=== PATIENT | male | born 1955 | race Caucasian/White ===

== ENCOUNTER → 2017-01-27 | Outpatient (CLI) | payer OTHER ==
[2017-01-27 11:18] LABS: CH 30.2; CHCM 32.9; HDW 2.86; HGB 14.8 gm/dL (13.0-17.5); MCH 29.7 pg (25.0-35.0); MCHC 32.2 g/dL (31.0-37.0); MCV 92.2 fL (80.0-100.0); RBC 4.99 m/uL (4.30-5.90); RDW 15.2 % (11.5-15.5); WBC 4.9 k/uL (3.8-10.6)
[2017-01-27 11:23] LABS: ALT 33 U/L (21-72); AST 26 U/L (17-59); Alkaline Phosphatase 110 U/L (38-126); Anion Gap 9 mmol/L; Blood Urea Nitrogen 18 mg/dL (9-20); Calcium 9.5 mg/dL (8.4-10.2); Carbon Dioxide 28 mmol/L (22-30); Chloride 104 mmol/L (98-107); Cholesterol 188 mg/dL (<200); Glucose 103 mg/dL (74-99); HDL Cholesterol 38 mg/dL (40-60); Magnesium 1.8 mg/dL (1.6-2.3); Non-African American GFR(MDRD) >60 (>60 ml/min/1.73 sqM); Potassium 5.2 mmol/L (3.5-5.1); Sodium 141 mmol/L (137-145); Total Bilirubin 0.6 mg/dL (0.2-1.3); Total Protein 9.2 g/dL (6.3-8.2)
== END | disposition home or self-care (01) ==
LOC: LABWHC1 10:46
PROVIDERS: ATTEND Nurse Practitioner Adult Health
DX: E78.2 Mixed hyperlipidemia (principal); I49.3 Ventricular premature depolarization; I42.9 Cardiomyopathy, unspecified
CPT/HCPCS: 36415; 80053; 80061; 83735; 83880; 85027

== ENCOUNTER → 2017-03-04 | Outpatient (CLI) | payer OTHER ==
--- NOTE | 2017-03-05 07:44 | US ---
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 Lesion on right kidney removed 3 months ago, h/o stones and cyst EXAM MEASUREMENTS: Right Kidney: 10.8 x 6.1 x 5.6 cm Left Kidney: 11.5 x 5.0 x 8.1 cm Right Kidney: 3.3cm simple cyst seen. Left Kidney: 3.9cm hyperechoic lesion seen Bladder: wnl Bilateral Jets seen: Yes There is no evidence for hydronephrosis at this point in time. No nephrolithiasis is seen. The urina ry bladder is anechoic. Bilateral ureteral jets are seen. IMPRESSION: 1. The known solid posterior mid pole right renal mass previously seen on MR has been removed in the interim. 2. 3.3 cm simple right renal cyst. 3. 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
== END | disposition home or self-care (01) ==
LOC: RADUSWWP 15:51
PROVIDERS: ATTEND Urology
DX: C64.1 Malignant neoplasm of right kidney, except renal pelvis (principal); D17.71 Benign lipomatous neoplasm of kidney; N28.1 Cyst of kidney, acquired
CPT/HCPCS: 76770

== ENCOUNTER → 2017-06-25 | Outpatient (CLI) | payer OTHER ==
[2017-06-25 11:54] LABS: Anion Gap 8 mmol/L; Blood Urea Nitrogen 19 mg/dL (9-20); Calcium 9.4 mg/dL (8.4-10.2); Carbon Dioxide 31 mmol/L (22-30); Chloride 103 mmol/L (98-107); Glucose 102 mg/dL (74-99); Potassium 4.9 mmol/L (3.5-5.1); Sodium 142 mmol/L (137-145)
== END | disposition home or self-care (01) ==
LOC: LABWHC1 10:51
PROVIDERS: ATTEND Internal Medicine Cardiovascular Disease
DX: I10 Essential (primary) hypertension (principal)
CPT/HCPCS: 36415; 80048

== ENCOUNTER → 2017-10-08 | Outpatient (CLI) | payer OTHER ==
--- NOTE | 2017-10-08 16:50 | US ---
EXAMINATION TYPE: US kidneys/renal and bladder DATE OF EXAM: 10/08/2017 COMPARISON: CLINICAL HISTORY: N28.1 Renal Cyst. Hx of renal cyst. Hx of renal cancer with right renal tumor francisco javier chastity per patient. EXAM MEASUREMENTS: Right Kidney: 10.6 x 5.7 x 6.3 cm Left Kidney: 11.8 x 6.1 x 6.8 cm Right Kidney: Medial cystic appearing lesion seen in upper pole = 3.2 x 3.5 x 2.9 cm. Cystic appeari ng lesion seen with septation vs cluster of cyst seen in upper/mid pole = 1.7 x 1.6 x 1.6 cm. Lower pole echogenic lesion with shadow = 1.6 x 1.2 cm Left Kidney: Echogenic anterior vascular lesion seen in lower pole = 4.3 x 4.2 x 3.1 cm. Lower pole c ystic appearing lesion . = 1.3 x 1.5 x 1.3 cm. Upper pole cystic appearing lesion - 1.3 x 1.3 x 1.1 cm. Bladder: Distended, wnl Bilateral Jets seen IMPRESSION: There are renal cortical cysts. There is a 4 cm solid mass on the lateral left kidney. Is unchanged c ompared to CT scan of 04/11/2016 and consistent with a lipoma.there is a shadowing 1.6 cm density on the right kidney that is consistent with calcification that is not changed compared to old CT scan. N o suspicious solid renal mass identified. No renal obstruction. There are bilateral ureteral jets.
== END | disposition home or self-care (01) ==
LOC: RADUSMAIN 15:42
PROVIDERS: ATTEND Urology
DX: N28.1 Cyst of kidney, acquired (principal); N28.89 Other specified disorders of kidney and ureter
CPT/HCPCS: 76770

== ENCOUNTER → 2018-04-21 | Outpatient (CLI) | payer OTHER ==
--- NOTE | 2018-04-21 12:32 | US ---
EXAMINATION TYPE: US kidneys/renal and bladder DATE OF EXAM: 04/21/2018 COMPARISON: US 10/08/2017 CLINICAL HISTORY: N28.1 Renal Cyst. EXAM MEASUREMENTS: Right Kidney: 11.4 x 6.3 x 6.6 cm Left Kidney: 11.0 x 6.7 x 6.2 cm Right Kidney: No hydronephrosis. Multiple cystic areas visualized, largest upper pole measuring 3.4 x 3.4 x 3.7 cm Left Kidney: No hydronephrosis. Probable parapelvic cysts visualized. Hyperechoic area visualized med ial measuring 5.0 x 3.4 x 5.4 cm. Cystic area visualized lower pole 2.4 x 1.8 x 2.8 cm Bladder: wnl Bilateral Jets seen: Yes IMPRESSION: Multiple simple cysts noted.
== END | disposition home or self-care (01) ==
LOC: RADUSWWP 10:47
PROVIDERS: ATTEND Urology
DX: N28.1 Cyst of kidney, acquired (principal)
CPT/HCPCS: 76770

== ENCOUNTER → 2018-11-02 | Outpatient (CLI) | payer OTHER ==
[2018-11-02 16:07] LABS: HCT 39.5 % (39.0-53.0); HGB 12.4 gm/dL (13.0-17.5); MCH 28.8 pg (25.0-35.0); MCHC 31.4 g/dL (31.0-37.0); MCV 91.6 fL (80.0-100.0); Platelet Count 230 k/uL (150-450); RBC 4.31 m/uL (4.30-5.90); RDW 14.6 % (11.5-15.5); WBC 4.7 k/uL (3.8-10.6)
--- NOTE | 2018-11-02 16:26 | XR ---
EXAMINATION TYPE: XR chest 2V DATE OF EXAM: 11/02/2018 COMPARISON: NONE TECHNIQUE: PA and lateral views submitted. HISTORY: Postsurgical change FINDINGS: The lungs are clear and there is no pneumothorax, pleural effusion, or focal pneumonia. Prominence of the right suprahilar region. Heart is mildly prominent. No overt failure. Arthropathy of the shoul ders. Hypertrophic and degenerative change of the spine. IMPRESSION: 1. Right upper mediastinal soft tissue fullness could be related to vascular prominence rather than a denopathy. Recommend CT of the chest. 2. No acute infiltrate.
[2018-11-03 01:33] LABS: Albumin 3.5 g/dL (3.80-4.90); Albumin/Globulin Ratio 0.69 (1.60-3.17); Anion Gap 6.6 mmol/L (4.00-12.00); Calcium 8.6 mg/dL (8.7-10.3); Carbon Dioxide 25.4 mmol/L (21.6-31.8); Globulin 5.1 g/dL (1.6-3.3); Potassium 3.7 mmol/L (3.5-5.5); Total Bilirubin 0.3 mg/dL (0.3-1.2); Total Protein 8.6 g/dL (6.2-8.2)
== END | disposition home or self-care (01) ==
LOC: LABWHC1 15:16
PROVIDERS: ATTEND Urology
DX: M79.89 Other specified soft tissue disorders (principal); C64.1 Malignant neoplasm of right kidney, except renal pelvis
CPT/HCPCS: 36415; 71046; 80053; 85027

== ENCOUNTER → 2018-11-17 | Outpatient (CLI) | payer OTHER ==
--- NOTE | 2018-11-18 09:17 | US ---
EXAMINATION TYPE: US kidneys/renal and bladder DATE OF EXAM: 11/17/2018 COMPARISON: US 2018 CLINICAL HISTORY: C64.1 Renal ca. Malignant neoplasm of kidney. Cancerous mass removed from right kid tarun 1.5 years ago. Hx kidney stones and cysts. EXAM MEASUREMENTS: Right Kidney: 10.8 x 6.3 x 6.0 cm Left Kidney: 13.2 x 5.8 x 6.4 cm Post Void Residual Volume: Not performed. Right Kidney: Hypoechoic area seen laterally measurin.1 x 2.0 x 1.7 cm. This appears new from the prior. Additional imaging is recommended. Largest anechoic area seen upper/medially measurin.3 x 4.3 x 3.4 cm. This appears as a simple cys t and previously measured up to 3.4 cm on the exam of 04/21/2018. Left Kidney: Hypoechoic-anechoic area seen lower measurin.0 x 2.9 x 2.0 cm. Hyperechoic myelolipo ma seen medially (measured on previous studies) measurin.8 x 4.9 x 3.[address] of 6 this measured up to 1.5 cm Bladder: Appears anechoic Bilateral Jets seen: Yes IMPRESSION: 1. Hypoechoic 2.1 cm right renal lesion laterally with emanating from the mid pole that appears new f rom the prior exam. Enhanced MRI or CT is recommended for further evaluation of this lesion. 2. Interval enlargement of the left myelolipoma now measuring up to 5.8 cm. At this size there is ris k of intralesional hemorrhage occurring. 3. Multiple simple appearing benign renal cysts.
== END | disposition home or self-care (01) ==
LOC: RADUSWWP 16:19
PROVIDERS: ATTEND Urology
DX: N28.9 Disorder of kidney and ureter, unspecified (principal); D17.9 Benign lipomatous neoplasm, unspecified; N28.1 Cyst of kidney, acquired; C64.1 Malignant neoplasm of right kidney, except renal pelvis
CPT/HCPCS: 76770

== ENCOUNTER → 2018-11-19 | Outpatient (CLI) | payer OTHER ==
--- NOTE | 2018-11-20 14:37 | CT ---
EXAMINATION TYPE: CT chest wo con DATE OF EXAM: 11/19/2018 COMPARISON: None HISTORY: Cough x2 weeks. CT DLP: 590.6 mGycm. Automated Exposure Control for Dose Reduction was Utilized. TECHNIQUE: CT scan of the thorax is performed without IV contrast. FINDINGS: The lungs are clear of infiltrate. There is no evidence of a pulmonary mass. There is no pleural effu emma. There is densely calcified 2.5 cm right paratracheal lymph node. There are no hilar masses. The re is no pericardial effusion. There is 5 mm calculus upper pole left kidney. There is hypertrophic s purring in the thoracic spine. IMPRESSION: Old granulomatous disease. Otherwise negative exam.
== END | disposition home or self-care (01) ==
LOC: RADCTMAIN 16:47
PROVIDERS: ATTEND Family Medicine
DX: R05 Cough (principal)
CPT/HCPCS: 71250

== ENCOUNTER → 2019-01-27 | Outpatient (CLI) | payer OTHER ==
[2019-01-27 16:18] LABS: African American GFR (CKD) >90 (>60 ml/min/1.73 sqM); Blood Urea Nitrogen 18 mg/dL (9-20); Non-African American GFR(CKD) 78 (>60 ml/min/1.73 sqM)
--- NOTE | 2019-01-28 09:20 | CT ---
EXAMINATION TYPE: CT abdomen pelvis wo/w con DATE OF EXAM: 01/27/2019 COMPARISON: 05/24/2016 MRI of the kidney and CT of the abdomen and pelvis dated 04/11/2016 HISTORY: Malignant neoplasm of right kidney. CT DLP: 2901.3 mGycm Automated exposure control for dose reduction was used. TECHNIQUE: Helical acquisition of images was performed from the lung bases through the pelvis. CONTRAST: Performed with Oral Contrast and without and with IV Contrast, patient injected with 100ml mL of Isov ue 300. FINDINGS: LUNG BASES: No significant abnormality is appreciated. LIVER/GB: No significant abnormality is appreciated. Gallbladder surgically absent. PANCREAS: No significant abnormality is seen. SPLEEN: No significant abnormality is seen. ADRENALS: No significant abnormality is seen. KIDNEYS: Interval removal/ablation of solid left midpole kidney mass seen on MRI of the abdomen dated 05/24/2016. A few scattered punctate calcifications are seen within the region of the surgical site. There are a few multilobulated exophytic structures seen near the surgical site with the largest are a measuring 1.7 x 3.3 x 3.6 cm in AP by transverse by craniocaudad dimension. On the postcontrast gaurav ms, there is mild enhancement within this area. These findings are best seen on axial image 42. There is also increasing size of right upper pole kidney cyst with peripheral calcification and inter nal septation which now measures approximately 4.9 cm. Redemonstration of fat-containing exophytic ki dney lesion in the mid pole on the left measuring 4.5 cm with previous measurement of 4.1 cm. Inferio r to this area there is a small area of hyperattenuation measuring 1.6 cm with adjacent cyst measurin g 2.8 cm. Multiple tiny nonobstructive calculi are seen in the bilateral kidneys with the largest seen in the u pper pole on the right measuring 2 0.6 cm. No evidence of hydronephrosis. Bilateral renal veins are p atent. FREE AIR: No free air is visualized. RETROPERITONEAL ADENOPATHY: None visualized REPRODUCTIVE ORGANS: No significant abnormality is seen URINARY BLADDER: No significant abnormality is seen. PELVIC ADENOPATHY: None visualized. OSSEOUS STRUCTURES: Development of new superior endplate lytic lesion measuring up to 1.6 cm in L2 a nd new when compared to 2016. No evidence of new sclerotic lesion. BOWEL: Diverticulosis of the descending and sigmoid colon. No bowel obstruction. No ascites. No free intraperitoneal air. IMPRESSION: RESOLUTION OF PREVIOUSLY SEEN EXOPHYTIC RIGHT RENAL MASS WITH SURGICAL SITES SEEN IN THE MIDPOLE OF T HE RIGHT KIDNEY. THERE ARE A FEW EXOPHYTIC ENHANCING STRUCTURES WITHIN THE SURGICAL SITE WHICH MAY RE LATED TO GRANULATION TISSUE FROM POST PROCEDURE, BUT GIVEN THE ENHANCEMENT, FURTHER EVALUATION WITH M RI RENAL PROTOCOL IS RECOMMENDED. MULTIPLE COMPLEX CYSTS SEEN IN THE BILATERAL KIDNEYS WITH ENLARGEMENT AND INTERNAL SEPTATION AND HEMO RRHAGE IN THE RIGHT UPPER POLE AND LEFT LOWER POLE. GIVEN THE HISTORY OF RENAL CANCER, THESE STRUCTUR ES SHOULD ALSO BE EVALUATED ON MRI RENAL PROTOCOL. SLIGHT ENLARGEMENT OF EXOPHYTIC LEFT KIDNEY ANGIOMYOLIPOMA. NONOBSTRUCTIVE BILATERAL NEPHROLITHIASIS. NEW L2 SUPERIOR ENDPLATE LYTIC LESION FAVOR TO BE DEGENERATIVE, CORRELATION WITH BONE SCAN MAY BE HEL PFUL.
== END | disposition home or self-care (01) ==
LOC: RADCTMAIN 15:42
PROVIDERS: ATTEND Urology
DX: N28.1 Cyst of kidney, acquired (principal); N20.0 Calculus of kidney; C64.1 Malignant neoplasm of right kidney, except renal pelvis
CPT/HCPCS: 82565; 84520; 74178; 36415; Q9967

== ENCOUNTER → 2019-03-04 | Outpatient (CLI) | payer OTHER ==
--- NOTE | 2019-03-08 12:59 | MR ---
MRI kidneys with and without contrast HISTORY: Malignant neoplasm of right kidney Multiplanar multisequence and postcontrast images through the kidneys following 11.5 cc Gadavist Correlation to CT scan 01/27/2019, prior renal MRI 05/24/2016 The angiomyolipoma within the left kidney is again noted and measures approximately 4.6 cm on postcon trast images as compared to previous exam renal MRI when it measured approximately 4.[address] shows a measurement of approximately 4.9 cm. At the lower pole the left kidney there has been interval growt h in the lesion which shows possible 2 adjacent lesions with septation-like focus coursing transverse ly, larger of the 2 foci shows intermediate signal intensity on T1 precontrast and similar to fat sig nal on postcontrast images and measures 2.4 cm. Smaller anterior focus is T1 bright precontrast and m ildly increased on T2-weighted images. Immediately adjacent laterally and cephalad there is a focus o f intermediate signal on postcontrast images measuring 16 mm which is increased signal on precontrast T1 and extends towards the angiomyolipoma. Parapelvic cysts are present, multiple cortical cysts are noted. The right kidney shows post op changes consistent with patient's prior partial nephrectomy. Multiple T2 bright lesions are present compatible with parapelvic cysts and cortical cysts. No significant abn ormal enhancement is present, the area described as high attenuation on previous exam on the CT is th ought likely to be related to the surgery, it shows high attenuation precontrast as well and may be r elated to suture material. Small exophytic anterior calcified focus at the anterior margin of the rig ht kidney subcentimeter size is not well appreciated on MRI. There is no retroperitoneal adenopathy. Right adrenal lesion shows signal drop and may represent elías irene on out of phase imaging. Pancreas and spleen as visualized are normal. Signal drop on out of phas e imaging within the liver suggests hepatic steatosis. IMPRESSION: Postop changes. Findings in the lower pole of left kidney may be related to proteinaceous cyst, additional follow-up could be performed to assess for stability. Additional findings above.
== END | disposition home or self-care (01) ==
LOC: RADMRIMAIN 14:40
PROVIDERS: ATTEND Urology
DX: N28.89 Other specified disorders of kidney and ureter (principal); N28.1 Cyst of kidney, acquired; Z98.890 Other specified postprocedural states; Z90.5 Acquired absence of kidney
CPT/HCPCS: 74183; A9585

== ENCOUNTER 2019-10-15 22:10 | Inpatient (IN) | payer OTHER, MEDICARE ==
--- NOTE | 2019-10-16 00:03 | CT ---
EXAMINATION TYPE: CT lumbar spine wo con DATE OF EXAM: 10/15/2019 COMPARISON: CT abdomen 01/27/2019 HISTORY: lower back pain CT DLP: 1596.6 mGycm Automated exposure control for dose reduction was used. Multiple axial sections were obtained from the level of T11 to the S3 vertebra without contrast. There are multiple areas of osteolytic change in the lumbar and sacral vertebral bodies. There is exp ansile lytic lesion in the body of the sacrum on the left side that measures 3.5 x 6.5 cm. There are multiple osteolytic lesions in the visualized bony pelvis. There is no lumbar compression fracture. T here is multilevel lumbar degenerative disc space narrowing. There is some pleural thickening and ate lectasis and infiltrate right posterior lung base. There is 1 cm calculus medial left kidney. There i s no hydronephrosis. Kidneys are not entirely included on the exam. There are smaller calculi in the interpolar left kidney. IMPRESSION: Extensive osteolytic changes in the lumbar spine and visualized pelvis consistent with widespread met astatic disease that show significant progression compared to old CT scan. No significant compression fracture seen.
[2019-10-16] MEDS ORDERED: MORPHINE SULFATE 4 MG/ML SYRINGE IV STA (00:31)
[2019-10-16 01:05] LABS: Appearance,Urine Cloudy (Clear); Bacteria,Urine Rare /hpf; Bilirubin,Urine Negative (Negative); Blood,Urine Negative (Negative); Color,Urine Yellow; Glucose,Urine (UA) Negative (Negative); Hyaline Casts,Urine 1 /lpf (0-2); Ketones,Urine Negative (Negative); Leukocyte Esterase,Urine Negative (Negative); Mucus,Urine Rare /hpf; Nitrite,Urine Negative (Negative); PH, Urine 5.5 (5.0-8.0); Protein,Urine 2+ (Negative); RBC,Urine 2 /hpf (0-5); Specific Gravity,Urine 1.017 (1.001-1.035); Squamous Epithelial Cell,Urine <1 /hpf (0-4); Urobilinogen,Urine <2.0 mg/dL (<2.0); WBC,Urine 2 /hpf (0-5)
[2019-10-16 01:23] LABS: Glucose,Whole Blood 119 mg/dL (75-99)
[2019-10-16 01:25] LABS: Anisocytosis Slight; Basophils % (A) 0 %; Eosinophils # (A) 0.1 k/uL (0-0.7); Eosinophils % (A) 1 %; HCT 24.9 % (39.0-53.0); HGB 8.1 gm/dL (13.0-17.5); Hypochromasia Slight; Lymphocytes # (A) 0.4 k/uL (1.0-4.8); Lymphocytes % (A) 4 %; MCH 31.9 pg (25.0-35.0); MCHC 32.5 g/dL (31.0-37.0); MCV 98.1 fL (80.0-100.0); Macrocytosis Slight; Mean Platelet Volume 8.3; Monocytes # (A) 0.6 k/uL (0-1.0); Monocytes % (A) 6 %; Neutrophils % (A) 88 %; Platelet Count 137 k/uL (150-450); RBC 2.54 m/uL (4.30-5.90); RDW 17.2 % (11.5-15.5); WBC 10.3 k/uL (3.8-10.6)
[2019-10-16 01:32] LABS: Albumin 3.3 g/dL (3.5-5.0); Calcium 9.9 mg/dL (8.4-10.2)
[2019-10-16 01:42] LABS: Potassium 4.2 mmol/L (3.5-5.1)
[2019-10-16 01:43] LABS: Total Protein 13.5 g/dL (6.3-8.2)
[2019-10-16] MEDS ORDERED: SODIUM CHLORIDE 0.9% 1,000 ML IV ONE (01:55)
[2019-10-16] MEDS ORDERED: ASPIRIN 325 MG TAB PO STA (02:08)
[2019-10-16] MEDS ORDERED: NALOXONE 0.4 MG/ML 1 ML VIAL IV PRN (02:17)
--- NOTE | 2019-10-16 02:21 | ED ---
General Adult HPI - General Source: patient, RN notes reviewed, old records reviewed Mode of arrival: wheelchair Limitations: no limitations <Lionel Torres - Last Filed: 10/16/19 02:21> <Chidi Walsh - Last Filed: 10/25/19 07:18> - General Chief complaint: Back Pain/Injury Stated complaint: Back pain Time Seen by Provider: 10/15/19 22:51 - History of Present Illness Initial comments: 64-year-old male patient past history significant for renal cell carcinoma which was treated surgically approximately 2 years ago presents to ED for evaluation of back pain. Patient reports that he has a history of back pain and for the last month and has been worse. Describes it as mostly left paralumbar involving his gluteus region. Does report that radiates down his left leg. Patient reports that a few times throughout the night he has woken up and had a go to the bathroom very badly. Unable to get to the bathroom in time and partial urinated on himself. Denies any issues during the day. Denies any lower ext remity weakness, paresthesias or saddle anesthesia. Denies any recent falls or trauma. Patient did have a reported virtual part of his primary care provider for the pain is experiencing at that time he was prescribed tramadol and gabapentin which are supposedly helping his discomfort Denies any chest pain or shortness of breath. Systemic: Pt denies fatigue, fever/chills, rash. Pt denies weakness, night sweats, weight loss. Neuro: Pt denies headache, visual disturbances, syncope or pre-syncope. HEENT: Pt denies ocular discharge or irritation, otalgia, rhinorrhea, pharyngitis or notable lymphadenopathy. Cardiopulmonary: Pt denies chest pain, SOB, heart palpitations, dyspnea on exertion. Abdominal/GI: Pt denies abdominal pain, n/v/d. : Pt denies dysuria, burning w/ urination, frequency/urgency. Denies new onset urinary or bowel incontinence. MSK: Pt denies loss of strength or function in extremities. Neuro: Pt denies new onset weakness, paresthesias. (Lionel Torres) - Related Data Home Medications Medication Instructions Recorded Confirmed Albuterol Nebulized [Ventolin 2.5 mg INHALATION RT-TID PRN 10/16/19 10/16/19 Nebulized] Fluticasone Nasal [place] [Flonase 1 spray EA NOSTRIL HS 10/16/19 10/16/19 Nasal [place]] Furosemide [Lasix] 20 mg PO DAILY 10/16/19 10/16/19 Gabapentin [Neurontin] 400 mg PO TID 10/16/19 10/16/19 Pravastatin Sodium [Pravachol] 20 mg PO DAILY 10/16/19 10/16/19 traMADol HCL 50 mg PO BID 10/16/19 10/16/19 Previous Rx's Medication Instructions Recorded amLODIPine BESYLATE/BENAZEPRIL 1 cap PO DAILY #90 cap 10/18/19 [Lotrel 10-20 MG] Dexamethasone 40 mg PO DAILY #60 tablet 10/19/19 Metoprolol Succinate (ER) [Toprol 25 mg PO DAILY #90 tab.er.24h 10/19/19 XL] Pantoprazole [Protonix] 40 mg PO BID #60 tablet. 10/19/19 Cephalexin [Keflex] 500 mg PO Q12HR #14 cap 10/21/19 Sennosides [Senokot] 8.6 mg PO BID #30 tab 10/21/19 Allergies Allergy/AdvReac Type Severity Reaction Status Date / Time hydrocodone [From Tensed] Allergy Unknown Verified 10/16/19 15:18 Review of Systems ROS Other: All systems not noted in ROS Statement are negative. <Lionel Torres - Last Filed: 10/16/19 02:21> ROS Other: All systems not noted in ROS Statement are negative. <Chidi Walsh - Last Filed: 10/25/19 07:18> ROS Statement: Those systems with pertinent positive or pertinent negative responses have been documented in the HPI. Past Medical History Past Medical History: Hypertension Additional Past Medical History / Comment(s): back pain History of Any Multi-Drug Resistant Organisms: None Reported Past Surgical History: Joint Replacement, Orthopedic Surgery Additional Past Surgical History / Comment(s): carpel tunnel, cataract Past Psychological History: No Psychological Hx Reported Smoking Status: Never smoker Past Alcohol Use History: None Reported Past Drug Use History: None Reported <Lionel Torres - Last Filed: 10/16/19 02:21> General Exam Limitations: no limitations <Lionel Torres - Last Filed: 10/16/19 02:21> - General Exam Comments Initial Comments: Constitutional: NAD, AOX3, Pt has pleasant affect. HEENT: NC/AT, trachea midline, neck supple, no lymphadenopathy. Posterior pharynx non erythematous, without exudates. External ears appear normal, without discharge. Mucous membranes moist. Eyes PERRLA, EOM intact. There is no scleral icterus. No pallor noted. Cardiopulmonary: RRR, no murmurs, rubs or gallops, no JVD noted. Lungs CTAB in anterior and posterior usllivan. No peripheral edema. Abdominal exam: Abdomen soft and non-distended. Abdomen non-tender to palpation in all 4 quadrants. Bowel sounds active in LLQ. No hepatosplenomegaly. No ecchymosis Neuro: CN II-XII grossly intact. No nuchal rigidity. No raccon eyes, no ruiz sign, no hemotympanum. No cervical spinal tenderness. MSK: Mild mild tenderness in left paralumbar region. Straight leg raise is positive right sided. 5 out of 5 strength psoas quadriceps muscles. Heel to toe walking is intact. No external skin changes noted. Rectal tone is intact. Sensation intact. No posterior calf tenderness bilaterally, homans sign negative bilaterally. Posterior tibialis and radial pulse +2 bilaterally. Sensation intact in upper and lower extremities. Full active ROM in upper and lower extremities, 5/5 stregnth. (Lionel Torres) Course Vital Signs 10/15/19 10/16/19 10/16/19 22:34 01:34 02:36 Temperature 98.8 F 98.8 F 99.7 F H Pulse Rate 95 89 Pulse Rate [ 100 Right] Respiratory 18 18 18 Rate Blood Pressure 129/64 120/71 Blood Pressure 134/74 [Right Arm] O2 Sat by Pulse 98 95 99 Oximetry 10/16/19 02:50 Temperature 98.6 F Pulse Rate 92 Pulse Rate [ Right] Respiratory 16 Rate Blood Pressure 130/79 Blood Pressure [Right Arm] O2 Sat by Pulse 98 Oximetry Medical Decision Making - Lab Data Result diagrams: 10/16/19 01:09 10/16/19 01:09 - EKG Data -: EKG Interpreted by Me (and Dr. Tellez ) <Lionel Torres - Last Filed: 10/16/19 02:21> - Lab Data Result diagrams: 10/21/19 05:54 10/21/19 05:54 <Chidi Walsh - Last Filed: 10/25/19 07:18> - Medical Decision Making 64-year-old male patient past history significant for renal cell carcinoma which was treated surgically approximately 2 years ago presents to ED for evaluation of back pain. Patient reports that he has a history of back pain and for the last month and has been worse. Describes it as mostly left paralumbar involving his gluteus region. Does report that radiates down his left leg. Patient reports that a few times throughout the night he has woken up and had a go to the bathroom very badly. Unable to get to the bathroom in time and partial urinated on himself. Denies any issues during the day. Denies any lower extremity weakness, paresthesias or saddle anesthesia. Denies any recent falls or trauma. Patient did have a reported virtual part of his primary care provider for the pain is experiencing at that time he was prescribed tramadol and gabapentin which are supposedly helping his discomfort Denies any chest pain or shortness of breath. Patient also and are stable, afebrile. Physical exam displayed: Mild mild tenderness in left paralumbar region. Straight leg raise i s positive right sided. 5 out of 5 strength psoas quadriceps muscles. Heel to toe walking is intact. No external skin changes noted. Rectal tone is intact. Sensation intact. Patient did urinate in the emergency department without difficulty. Post void residual was 73 mL approximately 1 hr later. Patient also had a bowel movement without difficulty. CT lumbar spine without contrast was performed displayed extensive osteolytic changes in the lumbar spine and visualized pelvis consistent with widespread metastatic disease that showed significant progression compared old CT scan. No significant compression fracture seen. Laboratory investigations were obtained. This did display acute kidney injury, hemoglobin 8.1 which patient reports is around his baseline. Denies any rectal bleeding. Patient reports that he believes the tramadol is making him sweat and EKG and troponin were performed. The EKG did not display any grossly ischemic changes. Troponin was mildly elevated contacts acute kidney injury. Patient was administered an aspirin and troponins will be trended. Patient is not experiencing any chest pain. Patient will be admitted for oncology evaluation, troponin trend, acute kidney injury. Case discussed with Dr. Tellez. (Lionel Torres) I saw this patient in conjunction with the physician assistant food service manager. I performed independent history and physical exam. Agree with case management. (Chidi Walsh) - Lab Data Lab Results 10/16/19 10/16/19 10/16/19 Range/Units 00:49 01:09 01:09 WBC 10.3 (3.8-10.6) k/uL RBC 2.54 L (4.30-5.90) m/uL Hgb 8.1 L (13.0-17.5) gm/dL Hct 24.9 L (39.0-53.0) % MCV 98.1 (80.0-100.0) fL MCH 31.9 (25.0-35.0) pg MCHC 32.5 (31.0-37.0) g/dL RDW 17.2 H (11.5-15.5) % Plt Count 137 L (150-450) k/uL Neutrophils % 88 % Lymphocytes % 4 % Monocytes % 6 % Eosinophils % 1 % Basophils % 0 % Neutrophils # 9.0 H (1.3-7.7) k/uL Lymphocytes # 0.4 L (1.0-4.8) k/uL Monocytes # 0.6 (0-1.0) k/uL Eosinophils # 0.1 (0-0.7) k/uL Basophils # 0.0 (0-0.2) k/uL Hypochromasia Slight Anisocytosis Slight Macrocytosis Slight ESR (0-15) mm/hr PT (9.0-12.0) sec INR (<1.2) Sodium 132 L (137-145) mmol/L Potassium 4.2 (3.5-5.1) mmol/L Chloride 97 L (98-107) mmol/L Carbon Dioxide 28 (22-30) mmol/L Anion Gap 7 mmol/L BUN 36 H (9-20) mg/dL Creatinine 1.83 H (0.66-1.25) mg/dL Est GFR (CKD-EPI)AfAm 44 (>60 ml/min/1.73 sqM) Est GFR (CKD-EPI)NonAf 38 (>60 ml/min/1.73 sqM) Glucose 110 H (74-99) mg/dL POC Glucose (mg/dL) (75-99) mg/dL POC Glu Power Nut Runner Operator ID Calcium 9.9 (8.4-10.2) mg/dL Iron (65-175) ug/dL TIBC (228-460) ug/dL % Saturation (15.00-50.00) Ferritin (22.0-322.0) ng/mL Total Bilirubin 1.0 (0.2-1.3) mg/dL AST 98 H (17-59) U/L ALT 80 H (4-49) U/L Alkaline Phosphatase 113 (38-126) U/L Troponin I (0.000-0.034) ng/mL Total Protein 13.5 H (6.3-8.2) g/dL Total Protein (PEP) (6.2-8.2) g/dL Albumin 3.3 L (3.5-5.0) g/dL Albumin (PEP) (3.80-4.90) g/dL Saqrj-4-Qflhljszz (0.10-0.40) g/dL Tytrn-3-Yujtiatiu (0.60-1.00) g/dL Beta Globulins (0.60-1.30) g/dL Gamma Globulins (0.70-1.50) g/dL PEP Interpretation PSA Screen (0.0-4.0) ng/mL Vitamin B12 (200.0-944.0) pg/mL Methylmalonic Acid (<0.40) umol/L RBC Folate (280 - 791) ng/mL Urine Color Yellow Urine Appearance Cloudy (Clear) Urine pH 5.5 (5.0-8.0) Ur Specific [place] 1.017 (1.001-1.035) Urine Protein 2+ H (Negative) Urine Glucose (UA) Negative (Negative) Urine Ketones Negative (Negative) Urine Blood Negative (Negative) Urine Nitrite Negative (Negative) Urine Bilirubin Negative (Negative) Urine Urobilinogen <2.0 (<2.0) mg/dL Ur Leukocyte Esterase Negative (Negative) Urine RBC 2 (0-5) /hpf Urine WBC 2 (0-5) /hpf Ur Squamous Epith Cells <1 (0-4) /hpf Urine Bacteria Rare H (None) /hpf Hyaline Casts 1 (0-2) /lpf Urine Mucus Rare H (None) /hpf Serum THOMAS Interpret Free [place] LC, Quant (0.33-1.94) mg/dL Free [place] LC, Quant (0.57-2.63) mg/dL Coronavirus (PCR) (Not Detectd) 10/16/19 10/16/19 10/16/19 Range/Units 01:09 01:09 01:09 WBC (3.8-10.6) k/uL RBC (4.30-5.90) m/uL Hgb (13.0-17.5) gm/dL Hct (39.0-53.0) % MCV (80.0-100.0) fL MCH (25.0-35.0) pg MCHC (31.0-37.0) g/dL RDW (11.5-15.5) % Plt Count (150-450) k/uL Neutrophils % % Lymphocytes % % Monocytes % % Eosinophils % % Basophils % % Neutrophils # (1.3-7.7) k/uL Lymphocytes # (1.0-4.8) k/uL Monocytes # (0-1.0) k/uL Eosinophils # (0-0.7) k/uL Basophils # (0-0.2) k/uL Hypochromasia Anisocytosis Macrocytosis ESR >140 H (0-15) mm/hr PT (9.0-12.0) sec INR (<1.2) Sodium (137-145) mmol/L Potassium (3.5-5.1) mmol/L Chloride (98-107) mmol/L Carbon Dioxide (22-30) mmol/L Anion Gap mmol/L BUN (9-20) mg/dL Creatinine (0.66-1.25) mg/dL Est GFR (CKD-EPI)AfAm (>60 ml/min/1.73 sqM) Est GFR (CKD-EPI)NonAf (>60 ml/min/1.73 sqM) Glucose (74-99) mg/dL POC Glucose (mg/dL) (75-99) mg/dL POC Glu Power Nut Runner Operator ID Calcium (8.4-10.2) mg/dL Iron 23 L (65-175) ug/dL TIBC 170 L (228-460) ug/dL % Saturation 13.53 L (15.00-50.00) Ferritin 1542.8 H (22.0-322.0) ng/mL Total Bilirubin (0.2-1.3) mg/dL AST (17-59) U/L ALT (4-49) U/L Alkaline Phosphatase (38-126) U/L Troponin I 0.074 H* (0.000-0.034) ng/mL Total Protein (6.3-8.2) g/dL Total Protein (PEP) (6.2-8.2) g/dL Albumin (3.5-5.0) g/dL Albumin (PEP) (3.80-4.90) g/dL Ksdgb-2-Xocpnpyyr (0.10-0.40) g/dL Crqni-9-Xtxcyiehb (0.60-1.00) g/dL Beta Globulins (0.60-1.30) g/dL Gamma Globulins (0.70-1.50) g/dL PEP Interpretation PSA Screen (0.0-4.0) ng/mL Vitamin B12 1219.0 H (200.0-944.0) pg/mL Methylmalonic Acid (<0.40) umol/L RBC Folate (280 - 791) ng/mL Urine Color Urine Appearance (Clear) Urine pH (5.0-8.0) Ur Specific [place] (1.001-1.035) Urine Protein (Negative) Urine Glucose (UA) (Negative) Urine Ketones (Negative) Urine Blood (Negative) Urine Nitrite (Negative) Urine Bilirubin (Negative) Urine Urobilinogen (<2.0) mg/dL Ur Leukocyte Esterase (Negative) Urine RBC (0-5) /hpf Urine WBC (0-5) /hpf Ur Squamous Epith Cells (0-4) /hpf Urine Bacteria (None) /hpf Hyaline Casts (0-2) /lpf Urine Mucus (None) /hpf Serum THOMAS Interpret Free [place] LC, Quant (0.33-1.94) mg/dL Free Lambda LC, Quant (0.57-2.63) mg/dL Coronavirus (PCR) (Not Detectd) 10/16/19 10/16/19 10/16/19 Range/Units 01:09 01:09 01:09 WBC (3.8-10.6) k/uL RBC (4.30-5.90) m/uL Hgb (13.0-17.5) gm/dL Hct (39.0-53.0) % MCV (80.0-100.0) fL MCH (25.0-35.0) pg MCHC (31.0-37.0) g/dL RDW (11.5-15.5) % Plt Count (150-450) k/uL Neutrophils % % Lymphocytes % % Monocytes % % Eosinophils % % Basophils % % Neutrophils # (1.3-7.7) k/uL Lymphocytes # (1.0-4.8) k/uL Monocytes # (0-1.0) k/uL Eosinophils # (0-0.7) k/uL Basophils # (0-0.2) k/uL Hypochromasia Anisocytosis Macrocytosis ESR (0-15) mm/hr PT (9.0-12.0) sec INR (<1.2) Sodium (137-145) mmol/L Potassium (3.5-5.1) mmol/L Chloride (98-107) mmol/L Carbon Dioxide (22-30) mmol/L Anion Gap mmol/L BUN (9-20) mg/dL Creatinine (0.66-1.25) mg/dL Est GFR (CKD-EPI)AfAm (>60 ml/min/1.73 sqM) Est GFR (CKD-EPI)NonAf (>60 ml/min/1.73 sqM) Glucose (74-99) mg/dL POC Glucose (mg/dL) (75-99) mg/dL POC Glu Power Nut Runner Operator ID Calcium (8.4-10.2) mg/dL Iron (65-175) ug/dL TIBC (228-460) ug/dL % Saturation (15.00-50.00) Ferritin (22.0-322.0) ng/mL Total Bilirubin (0.2-1.3) mg/dL AST (17-59) U/L ALT (4-49) U/L Alkaline Phosphatase (38-126) U/L Troponin I (0.000-0.034) ng/mL Total Protein (6.3-8.2) g/dL Total Protein (PEP) 12.4 H (6.2-8.2) g/dL Albumin (3.5-5.0) g/dL Albumin (PEP) 2.55 L (3.80-4.90) g/dL Bhxjt-5-Getczlnxl 0.41 H (0.10-0.40) g/dL Bqjes-2-Szmaypbts 0.98 (0.60-1.00) g/dL Beta Globulins 0.58 L (0.60-1.30) g/dL Gamma Globulins 7.87 H (0.70-1.50) g/dL PEP Interpretation PSA Screen 1.8 (0.0-4.0) ng/mL Vitamin B12 (200.0-944.0) pg/mL Methylmalonic Acid (<0.40) umol/L RBC Folate 913 H (280 - 791) ng/mL Urine Color Urine Appearance (Clear) Urine pH (5.0-8.0) Ur Specific [place] (1.001-1.035) Urine Protein (Negative) Urine Glucose (UA) (Negative) Urine Ketones (Negative) Urine Blood (Negative) Urine Nitrite (Negative) Urine Bilirubin (Negative) Urine Urobilinogen (<2.0) mg/dL Ur Leukocyte Esterase (Negative) Urine RBC (0-5) /hpf Urine WBC (0-5) /hpf Ur Squamous Epith Cells (0-4) /hpf Urine Bacteria (None) /hpf Hyaline Casts (0-2) /lpf Urine Mucus (None) /hpf Serum THOMAS Interpret Free [place] LC, Quant 471.00 H (0.33-1.94) mg/dL Free [place] LC, Quant 0.18 L (0.57-2.63) mg/dL Coronavirus (PCR) (Not Detectd) 10/16/19 10/16/19 10/16/19 Range/Units 01:21 01:33 06:41 WBC (3.8-10.6) k/uL RBC (4.30-5.90) m/uL Hgb (13.0-17.5) gm/dL Hct (39.0-53.0) % MCV (80.0-100.0) fL MCH (25.0-35.0) pg MCHC (31.0-37.0) g/dL RDW (11.5-15.5) % Plt Count (150-450) k/uL Neutrophils % % Lymphocytes % % Monocytes % % Eosinophils % % Basophils % % Neutrophils # (1.3-7.7) k/uL Lymphocytes # (1.0-4.8) k/uL Monocytes # (0-1.0) k/uL Eosinophils # (0-0.7) k/uL Basophils # (0-0.2) k/uL Hypochromasia Anisocytosis Macrocytosis ESR (0-15) mm/hr PT (9.0-12.0) sec INR (<1.2) Sodium (137-145) mmol/L Potassium (3.5-5.1) mmol/L Chloride (98-107) mmol/L Carbon Dioxide (22-30) mmol/L Anion Gap mmol/L BUN (9-20) mg/dL Creatinine (0.66-1.25) mg/dL Est GFR (CKD-EPI)AfAm (>60 ml/min/1.73 sqM) Est GFR (CKD-EPI)NonAf (>60 ml/min/1.73 sqM) Glucose (74-99) mg/dL POC Glucose (mg/dL) 119 H (75-99) mg/dL POC Glu Power Nut Runner Operator ID Anup Ball Calcium (8.4-10.2) mg/dL Iron (65-175) ug/dL TIBC (228-460) ug/dL % Saturation (15.00-50.00) Ferritin (22.0-322.0) ng/mL Total Bilirubin (0.2-1.3) mg/dL AST (17-59) U/L ALT (4-49) U/L Alkaline Phosphatase (38-126) U/L Troponin I 0.071 H* (0.000-0.034) ng/mL Total Protein (6.3-8.2) g/dL Total Protein (PEP) (6.2-8.2) g/dL Albumin (3.5-5.0) g/dL Albumin (PEP) (3.80-4.90) g/dL Oswyw-1-Crvihbjis (0.10-0.40) g/dL Hnmaz-2-Nlzmumxtj (0.60-1.00) g/dL Beta Globulins (0.60-1.30) g/dL Gamma Globulins (0.70-1.50) g/dL PEP Interpretation PSA Screen (0.0-4.0) ng/mL Vitamin B12 (200.0-944.0) pg/mL Methylmalonic Acid (<0.40) umol/L RBC Folate (280 - 791) ng/mL Urine Color Urine Appearance (Clear) Urine pH (5.0-8.0) Ur Specific [place] (1.001-1.035) Urine Protein (Negative) Urine Glucose (UA) (Negative) Urine Ketones (Negative) Urine Blood (Negative) Urine Nitrite (Negative) Urine Bilirubin (Negative) Urine Urobilinogen (<2.0) mg/dL Ur Leukocyte Esterase (Negative) Urine RBC (0-5) /hpf Urine WBC (0-5) /hpf Ur Squamous Epith Cells (0-4) /hpf Urine Bacteria (None) /hpf Hyaline Casts (0-2) /lpf Urine Mucus (None) /hpf Serum THOMAS Interpret Free [place] LC, Quant (0.33-1.94) mg/dL Free [place] LC, Quant (0.57-2.63) mg/dL Coronavirus (PCR) Not Detected (Not Detectd) 10/16/19 10/17/19 10/17/19 Range/Units 12:16 06:43 06:43 WBC 5.5 (3.8-10.6) k/uL RBC 2.36 L (4.30-5.90) m/uL Hgb 7.5 L (13.0-17.5) gm/dL Hct 23.7 L (39.0-53.0) % MCV 100.3 H (80.0-100.0) fL MCH 31.8 (25.0-35.0) pg MCHC 31.7 (31.0-37.0) g/dL RDW 17.2 H (11.5-15.5) % Plt Count 130 L (150-450) k/uL Neutrophils % 85 % Lymphocytes % 3 % Monocytes % 8 % Eosinophils % 1 % Basophils % 0 % Neutrophils # 4.7 (1.3-7.7) k/uL Lymphocytes # 0.2 L (1.0-4.8) k/uL Monocytes # 0.4 (0-1.0) k/uL Eosinophils # 0.0 (0-0.7) k/uL Basophils # 0.0 (0-0.2) k/uL Hypochromasia Moderate Anisocytosis Slight Macrocytosis Slight ESR (0-15) mm/hr PT (9.0-12.0) sec INR (<1.2) Sodium 136 L (137-145) mmol/L Potassium 3.9 (3.5-5.1) mmol/L Chloride 103 (98-107) mmol/L Carbon Dioxide 24 (22-30) mmol/L Anion Gap 9 mmol/L BUN 36 H (9-20) mg/dL Creatinine 1.96 H (0.66-1.25) mg/dL Est GFR (CKD-EPI)AfAm 40 (>60 ml/min/1.73 sqM) Est GFR (CKD-EPI)NonAf 35 (>60 ml/min/1.73 sqM) Glucose 103 H (74-99) mg/dL POC Glucose (mg/dL) (75-99) mg/dL POC Glu Power Nut Runner Operator ID Calcium 9.7 (8.4-10.2) mg/dL Iron (65-175) ug/dL TIBC (228-460) ug/dL % Saturation (15.00-50.00) Ferritin (22.0-322.0) ng/mL Total Bilirubin 1.0 (0.2-1.3) mg/dL AST 280 H (17-59) U/L ALT 176 H (4-49) U/L Alkaline Phosphatase 117 (38-126) U/L Troponin I 0.064 H* (0.000-0.034) ng/mL Total Protein 12.6 H (6.3-8.2) g/dL Total Protein (PEP) (6.2-8.2) g/dL Albumin 3.0 L (3.5-5.0) g/dL Albumin (PEP) (3.80-4.90) g/dL Ybnjy-9-Ryrqnfezz (0.10-0.40) g/dL Nqkls-8-Yvwzssmcc (0.60-1.00) g/dL Beta Globulins (0.60-1.30) g/dL Gamma Globulins (0.70-1.50) g/dL PEP Interpretation PSA Screen (0.0-4.0) ng/mL Vitamin B12 (200.0-944.0) pg/mL Methylmalonic Acid (<0.40) umol/L RBC Folate (280 - 791) ng/mL Urine Color Urine Appearance (Clear) Urine pH (5.0-8.0) Ur Specific [place] (1.001-1.035) Urine Protein (Negative) Urine Glucose (UA) (Negative) Urine Ketones (Negative) Urine Blood (Negative) Urine Nitrite (Negative) Urine Bilirubin (Negative) Urine Urobilinogen (<2.0) mg/dL Ur Leukocyte Esterase (Negative) Urine RBC (0-5) /hpf Urine WBC (0-5) /hpf Ur Squamous Epith Cells (0-4) /hpf Urine Bacteria (None) /hpf Hyaline Casts (0-2) /lpf Urine Mucus (None) /hpf Serum THOMAS Interpret Free [place] LC, Quant (0.33-1.94) mg/dL Free [place] LC, Quant (0.57-2.63) mg/dL Coronavirus (PCR) (Not Detectd) 10/17/19 10/18/19 10/18/19 Range/Units 09:14 06:23 06:23 WBC (3.8-10.6) k/uL RBC (4.30-5.90) m/uL Hgb (13.0-17.5) gm/dL Hct (39.0-53.0) % MCV (80.0-100.0) fL MCH (25.0-35.0) pg MCHC (31.0-37.0) g/dL RDW (11.5-15.5) % Plt Count (150-450) k/uL Neutrophils % % Lymphocytes % % Monocytes % % Eosinophils % % Basophils % % Neutrophils # (1.3-7.7) k/uL Lymphocytes # (1.0-4.8) k/uL Monocytes # (0-1.0) k/uL Eosinophils # (0-0.7) k/uL Basophils # (0-0.2) k/uL Hypochromasia Anisocytosis Macrocytosis ESR (0-15) mm/hr PT 14.6 H (9.0-12.0) sec INR 1.5 H (<1.2) Sodium 139 (137-145) mmol/L Potassium 4.9 (3.5-5.1) mmol/L Chloride 108 H (98-107) mmol/L Carbon Dioxide 23 (22-30) mmol/L Anion Gap 8 mmol/L BUN 38 H (9-20) mg/dL Creatinine 1.68 H (0.66-1.25) mg/dL Est GFR (CKD-EPI)AfAm 49 (>60 ml/min/1.73 sqM) Est GFR (CKD-EPI)NonAf 42 (>60 ml/min/1.73 sqM) Glucose 140 H (74-99) mg/dL POC Glucose (mg/dL) (75-99) mg/dL POC Glu Power Nut Runner Operator ID Calcium 9.8 (8.4-10.2) mg/dL Iron (65-175) ug/dL TIBC (228-460) ug/dL % Saturation (15.00-50.00) Ferritin (22.0-322.0) ng/mL Total Bilirubin (0.2-1.3) mg/dL AST (17-59) U/L ALT (4-49) U/L Alkaline Phosphatase (38-126) U/L Troponin I (0.000-0.034) ng/mL Total Protein (6.3-8.2) g/dL Total Protein (PEP) (6.2-8.2) g/dL Albumin (3.5-5.0) g/dL Albumin (PEP) (3.80-4.90) g/dL Ubpch-0-Zuriubwmf (0.10-0.40) g/dL Ifrgw-0-Koznqkxjm (0.60-1.00) g/dL Beta Globulins (0.60-1.30) g/dL Gamma Globulins (0.70-1.50) g/dL PEP Interpretation PSA Screen (0.0-4.0) ng/mL Vitamin B12 (200.0-944.0) pg/mL Methylmalonic Acid 0.59 H (<0.40) umol/L RBC Folate (280 - 791) ng/mL Urine Color Urine Appearance (Clear) Urine pH (5.0-8.0) Ur Specific [place] (1.001-1.035) Urine Protein (Negative) Urine Glucose (UA) (Negative) Urine Ketones (Negative) Urine Blood (Negative) Urine Nitrite (Negative) Urine Bilirubin (Negative) Urine Urobilinogen (<2.0) mg/dL Ur Leukocyte Esterase (Negative) Urine RBC (0-5) /hpf Urine WBC (0-5) /hpf Ur Squamous Epith Cells (0-4) /hpf Urine Bacteria (None) /hpf Hyaline Casts (0-2) /lpf Urine Mucus (None) /hpf Serum THOMAS Interpret Free [place] LC, Quant (0.33-1.94) mg/dL Free [place] LC, Quant (0.57-2.63) mg/dL Coronavirus (PCR) (Not Detectd) - EKG Data EKG Comments: 5389,. Flow 176, QRS 118, QT/QTC 362/440. Normal sinus rhythm, incomplete right left bundle-branch block. Nonspecific ST and T-wave abnormality. No concern for acute ischemia at this time. (Lionel Torres) Disposition Is patient prescribed a controlled substance at d/c from ED?: No <Lionel Torres - Last Filed: 10/16/19 02:21> <Chidi Walsh - Last Filed: 10/25/19 07:18> Clinical Impression: Metastatic disease, Back pain, Elevated troponin, GARY (acute kidney injury) Disposition: ADMITTED IP TO THIS HOSP Condition: Stable
[2019-10-16] MEDS: MORPHINE SULFATE 4 MG/ML SYRINGE IV PRN ×4 (05:57→20:36)
--- NOTE | 2019-10-16 11:23 | P.CRDCN ---
History of Present Illness Consult date: 10/16/19 Requesting physician: Nikhil Bishop Reason for Consult (text): Abnormal troponins Chief complaint: Lower back pain History of present illness: This is a 64-year-old gentleman with history of renal cell cancer status post surgery, hypertension, who presented to the hospital with complaints of lower back discomfort which has been worsening over the past one month or so, patient states that the pain radiates down his leg. He also states that he was having some difficulty holding his urine during the night when he needed to get up to use the bathroom. He denies having any difficulty in breathing, no chest discomfort or palpitations His EKG on presentation here showed a normal sinus rhythm with incomplete left bundle branch block pattern and nonspecific ST-T wave changes. Blood pressure 130/70 with a heart rate in the 90s, respirations 16, 90% on room air. Temperature 99.7. White blood cell count 10.3, hemoglobin 8.1, platelet count 137. Sodium 132, potassium 4.2, BUN 36 and creatinine 1.8. Patient's baseline creatinine appears to be 0.8. ST 98, ALT 80, troponin 0.07, 0.07. [place] virus not detected. A lumbar CT was performed which revealed extensive osteolytic changes in the lumbar spine consistent with widespread metastatic disease with significant progression. Because of the abnormality in troponin at cardiology consultation has been requested. We will obtain an echocardiogram with Doppler study. Past Medical History Past Medical History: Hypertension Additional Past Medical History / Comment(s): back pain, partial nephrectomy, bilat knee replacement, R sided kidney ca History of Any Multi-Drug Resistant Organisms: None Reported Past Surgical History: Joint Replacement, Orthopedic Surgery Additional Past Surgical History / Comment(s): carpel tunnel, cataract Past Psychological History: No Psychological Hx Reported Smoking Status: Never smoker Past Alcohol Use History: None Reported Past Drug Use History: None Reported Medications and Allergies Home Medications Medication Instructions Recorded Confirmed Type Hydrocodone/Acetaminophen [[place] 1 each PO Q6HR PRN #30 tab 04/11/16 Rx 5-325] Ondansetron Odt [Zofran ODT] 10 mg PO Q8HR PRN #5 tab 04/11/16 Rx Tamsulosin [Flomax] 0.4 mg PO DAILY #14 cap 04/11/16 Rx Allergies Allergy/AdvReac Type Severity Reaction Status Date / Time acetaminophen [From [place]] Allergy Unknown Verified 10/15/19 22:38 hydrocodone [From [place]] Allergy Unknown Verified 10/15/19 22:38 Physical Exam Vitals: Vital Signs Temp Pulse Pulse Resp BP BP Pulse Ox 10/16/19 08:25 99.6 F 99 19 131/73 93 L 10/16/19 04:15 100 16 10/16/19 02:50 98.6 F 92 16 130/79 98 10/16/19 02:36 99.7 F H 100 18 134/74 99 10/16/19 01:34 98.8 F 89 18 120/71 95 10/15/19 22:34 98.8 F 95 18 129/64 98 Intake and Output 10/15/19 10/16/19 10/16/19 22:59 06:59 14:59 Output Total 0 800 Balance 0 -800 Output: Urine 0 800 Other: Voiding Method Urinal Weight 99.79 kg 99.5 kg PHYSICAL EXAMINATION: GENERAL: 64-year-old gentleman in no acute distress at the time of my examination HEENT: Head is atraumatic, normocephalic. Pupils equal, round. Sclera anicteric. Conjunctiva are clear. Mucous membranes of the mouth are moist. Neck is supple. There is no elevated jugular venous pressure. No carotid bruit is heard. HEART EXAMINATION: Heart S1, S2 normal. No murmur or gallop heard. CHEST EXAMINATION: Lungs are clear to auscultation and precussion. No chest wall tenderness is noted on palpation or with deep breathing. ABDOMEN: Soft, nontender. Bowel sounds are heard. No organomegaly noted. EXTREMITIES: 2+ peripheral pulses with no evidence of peripheral edema and no calf tenderness noted. NEUROLOGIC patient is awake, alert and oriented 3 . . Results 10/16/19 01:09 10/16/19 01:09 Cardiac Enzymes 10/16/19 10/16/19 10/16/19 Range/Units 01:09 01:09 06:41 AST 98 H (17-59) U/L Troponin I 0.074 H* 0.071 H* (0.000-0.034) ng/mL CBC 10/16/19 Range/Units 01:09 WBC 10.3 (3.8-10.6) k/uL RBC 2.54 L (4.30-5.90) m/uL Hgb 8.1 L (13.0-17.5) gm/dL Hct 24.9 L (39.0-53.0) % Plt Count 137 L (150-450) k/uL Comprehensive Metabolic Panel 10/16/19 Range/Units 01:09 Sodium 132 L (137-145) mmol/L Potassium 4.2 (3.5-5.1) mmol/L Chloride 97 L (98-107) mmol/L Carbon Dioxide 28 (22-30) mmol/L BUN 36 H (9-20) mg/dL Creatinine 1.83 H (0.66-1.25) mg/dL Glucose 110 H (74-99) mg/dL Calcium 9.9 (8.4-10.2) mg/dL AST 98 H (17-59) U/L ALT 80 H (4-49) U/L Alkaline Phosphatase 113 (38-126) U/L Total Protein 13.5 H (6.3-8.2) g/dL Albumin 3.3 L (3.5-5.0) g/dL Current Medications Generic Name Dose Route Start Last Admin Trade Name Freq PRN Reason Stop Dose Admin Sodium Chloride 1,000 mls @ 75 mls/hr 10/16/19 02:30 Saline 0.9% IV .[id number] [facility] Morphine Sulfate 4 mg 10/16/19 02:17 10/16/19 09:18 Morphine Sulfate (Inj) IV 4 mg Q4HR PRN Administration Severe Pain Naloxone HCl 0.2 mg 10/16/19 02:17 Narcan IV Q2M PRN Opioid Reversal Intake and Output 10/15/19 10/16/19 10/16/19 22:59 06:59 14:59 Output Total 0 800 Balance 0 -800 Output: Urine 0 800 Other: Voiding Method Urinal Weight 99.79 kg 99.5 kg 10/16/19 01:09 10/16/19 01:09 EKG Interpretations (text) EKG shows a normal sinus rhythm with an incomplete left bundle branch block p attern Assessment and Plan Plan: Assessment and plan #1 symptoms of lower back discomfort with evidence of osteolytic changes on lumbar CT consistent with widespread metastatic disease #2 history of renal cell carcinoma status post surgery #3 hypertension #4 abnormal troponin, 0.07, 0.07, not consistent with acute coronary syndrome, likely secondary to abnormal renal function. #5 acute on chronic renal insufficiency #6 anemia Plan From cardiology's perspective, we will order an echocardiogram with Doppler study. If the echo is normal we will follow this patient along with you on an as-needed basis only, further recommendations to follow. DNP note has been reviewed, I agree with a documented findings and plan of care. Patient was seen and examined.
[2019-10-16] MEDS: SODIUM CHLORIDE 0.9% 1,000 ML IV SCH ×3 (11:24→18:23)
--- NOTE | 2019-10-16 13:27 | P.CNOR ---
History of Present Illness - [facility] Consult date: 10/16/19 Requesting physician: Lionel Torres Consult reason: low back pain, other (Most likely metastatic disease to the spine) History of present illness: Patient is a very pleasant 64-year-old male who is seen and examined the bedside for further evaluation of his low back pain. Patient states he has been experiencing increased low back pain over the past month without injury. His pain is been severe over the past 3 days. He states he has some pain that radiates from the lower lumbar spine into the left buttock. He was experiencing pain radiating down the left posterior thigh to the knee but that part has subsided. His pain is most significant at the lower lumbar spine. His pain is exacerbated with coughing, sneezing, bending, twisting. He does have some pain at his thoracic spine as well. He denies any lower extremity weakness bilaterally. He has been eating and voiding without difficulty. He has had difficulty ambulating to the restroom due to his pain. He states he normally has a bowel movement daily but has not been eating much food lately and has not had a bowel movement for 2 days. He does feel like he has to have a bowel movement today. He denies any saddle anesthesia. Patient is known to have a history of renal cell carcinoma with surgical intervention 2 years ago. He states he has not had follow-up evaluation in this regard since that time his he was told he was cancer free. Patient presented to the emergency department due to his back pain. Lumbar CT imaging was taken at that time which was suspicious for metastatic disease to the lumbar spine. Lumbar imaging did not show evidence of compression fracture deformity. Patient also has some changes his troponin level during his evaluation emergency department. Consultation has been placed with cardiology who has seen the patient today. They're planning to obtain a echocardiogram. Patient's hemoglobin was 8.1 during his presentation to sc she department which is near his baseline. Consultation has also been placed with oncology and radiology oncology. Patient does admit to history of total knee arthroplasty bilaterally both performed by Dr. Craig. Past Medical History Past Medical History: Hypertension Additional Past Medical History / Comment(s): back pain, partial nephrectomy, bilat knee replacement, R sided kidney ca History of Any Multi-Drug Resistant Organisms: None Reported Past Surgical History: Joint Replacement, Orthopedic Surgery Additional Past Surgical History / Comment(s): carpel tunnel, cataract Past Psychological History: No Psychological Hx Reported Smoking Status: Never smoker Past Alcohol Use History: None Reported Past Drug Use History: None Reported Medications and Allergies Home Medications Medication Instructions Recorded Confirmed Type Hydrocodone/Acetaminophen [[place] 1 each PO Q6HR PRN #30 tab 04/11/16 Rx 5-325] Ondansetron Odt [Zofran ODT] 10 mg PO Q8HR PRN #5 tab 04/11/16 Rx Tamsulosin [Flomax] 0.4 mg PO DAILY #14 cap 04/11/16 Rx Allergies Allergy/AdvReac Type Severity Reaction Status Date / Time acetaminophen [From [place]] Allergy Unknown Verified 10/15/19 22:38 hydrocodone [From [place]] Allergy Unknown Verified 10/15/19 22:38 Physical Examination Physical exam: Patient is awake, alert, and oriented 3 Vital signs stable Good chest excursion with deep inspiration and expiration Examination of thoracic and lumbar spine reveals skin is intact with no abrasions, aspirations, or bruises; no erythema, purulence or signs of infection Significant pain with palpation along the midline of the lower lumbar spine and at the lumbosacral junction Dorsiflexion, plantarflexion, and extensor hallucis longus positive sustained bilaterally Lower extremity strength 5/5 bilaterally Patient does have active range of motion with hip flexion bilaterally but movements are slower due to increased low back pain Evidence of well-healed incisions over the anterior knees No lower extremity hyperreflexia bilaterally Straight leg test negative bilateral lower extremities Negative Lasegue's test bilaterally No signs or symptoms of DVT; no calf pain No pain with internal and external rotation of the hips bilaterally Neurovascularly intact Results Pertinent studies: CT of the lumbar spine taken on 10/15/2019: Extensive osteophytic changes in the lumbar spine and visualized pelvis consistent with widespread metastatic disease extending from the visualized vertebral bodies of T11 extending to S1 with significant progression as compared to previous imaging taken on 01/27/2019; degenerative disc disease throughout the lumbar spine most significant at L2-3, L4-5, and L5-S1; no evidence of vertebral body compression fracture; L4-5 and L5-S1 significant posterior osteophytic spurring; significant anterior osteophytic spurring with large anterior bridging spur at L2 to 3 with a left lateral spur at L2-3; L1-2 right lateral osteophytic spurring - Labs Labs: Abnormal Lab Results - Last 24 Hours (Table) 10/16/19 10/16/19 10/16/19 Range/Units 00:49 01:09 01:09 RBC 2.54 L (4.30-5.90) m/uL Hgb 8.1 L (13.0-17.5) gm/dL Hct 24.9 L (39.0-53.0) % RDW 17.2 H (11.5-15.5) % Plt Count 137 L (150-450) k/uL Neutrophils # 9.0 H (1.3-7.7) k/uL Lymphocytes # 0.4 L (1.0-4.8) k/uL Sodium 132 L (137-145) mmol/L Chloride 97 L (98-107) mmol/L BUN 36 H (9-20) mg/dL Creatinine 1.83 H (0.66-1.25) mg/dL Glucose 110 H (74-99) mg/dL POC Glucose (mg/dL) (75-99) mg/dL AST 98 H (17-59) U/L ALT 80 H (4-49) U/L Troponin I (0.000-0.034) ng/mL Total Protein 13.5 H (6.3-8.2) g/dL Albumin 3.3 L (3.5-5.0) g/dL Urine Protein 2+ H (Negative) Urine Bacteria Rare H (None) /hpf Urine Mucus Rare H (None) /hpf 10/16/19 10/16/19 10/16/19 Range/Units 01:09 01:21 06:41 RBC (4.30-5.90) m/uL Hgb (13.0-17.5) gm/dL Hct (39.0-53.0) % RDW (11.5-15.5) % Plt Count (150-450) k/uL Neutrophils # (1.3-7.7) k/uL Lymphocytes # (1.0-4.8) k/uL Sodium (137-145) mmol/L Chloride (98-107) mmol/L BUN (9-20) mg/dL Creatinine (0.66-1.25) mg/dL Glucose (74-99) mg/dL POC Glucose (mg/dL) 119 H (75-99) mg/dL AST (17-59) U/L ALT (4-49) U/L Troponin I 0.074 H* 0.071 H* (0.000-0.034) ng/mL Total Protein (6.3-8.2) g/dL Albumin (3.5-5.0) g/dL Urine Protein (Negative) Urine Bacteria (None) /hpf Urine Mucus (None) /hpf 10/16/19 Range/Units 12:16 RBC (4.30-5.90) m/uL Hgb (13.0-17.5) gm/dL Hct (39.0-53.0) % RDW (11.5-15.5) % Plt Count (150-450) k/uL Neutrophils # (1.3-7.7) k/uL Lymphocytes # (1.0-4.8) k/uL Sodium (137-145) mmol/L Chloride (98-107) mmol/L BUN (9-20) mg/dL Creatinine (0.66-1.25) mg/dL Glucose (74-99) mg/dL POC Glucose (mg/dL) (75-99) mg/dL AST (17-59) U/L ALT (4-49) U/L Troponin I 0.064 H* (0.000-0.034) ng/mL Total Protein (6.3-8.2) g/dL Albumin (3.5-5.0) g/dL Urine Protein (Negative) Urine Bacteria (None) /hpf Urine Mucus (None) /hpf H & H 10/16/19 Range/Units 01:09 Hgb 8.1 L (13.0-17.5) gm/dL Hct 24.9 L (39.0-53.0) % Result Diagrams: 10/16/19 01:09 10/16/19 01:09 Assessment and Plan Assessment: Assessment: Acute severe lumbar pain Left buttock pain Thoracic pain History of renal cell carcinoma with surgical intervention Probable metastatic disease visualized on lumbar CT imaging Difficulty with mobility and ambulation due to lumbar pain Lumbar degenerative disc disease Lumbar osteophytic spurring Anemia Hypertension Abnormal troponin at 0.07 History of total knee arthroplasty bilaterally performed by Dr. Craig (1) Severe low back pain Current Visit: Yes Status: Acute Code(s): M54.5 - LOW BACK PAIN SNOMED Code(s): 318075221 (2) Thoracic back pain Current Visit: Yes Status: Acute Code(s): M54.6 - PAIN IN THORACIC SPINE SNOMED Code(s): 913197282 (3) Left buttock pain Current Visit: Yes Status: Acute Code(s): M79.18 - MYALGIA, OTHER SITE SNOMED Code(s): 890561516 (4) Hypertension Current Visit: Yes Status: Acute Code(s): I10 - ESSENTIAL (PRIMARY) HYPERTENSION SNOMED Code(s): 00386278 (5) Anemia Current Visit: Yes Status: Acute Code(s): D64.9 - ANEMIA, UNSPECIFIED SNOMED Code(s): 862296454 (6) Lumbar degenerative disc disease Current Visit: Yes Status: Acute Code(s): M51.36 - OTHER INTERVERTEBRAL DISC DEGENERATION, LUMBAR REGION SNOMED Code(s): 11391592 (7) Degeneration of intervertebral disc of lumbar region with osteophyte of lumbar vertebra Current Visit: Yes Status: Acute Code(s): M51.36 - OTHER INTERVERTEBRAL DISC DEGENERATION, LUMBAR REGION; M25.78 - OSTEOPHYTE, VERTEBRAE SNOMED Code(s): 029238894 (8) Decreased ambulation status Current Visit: Yes Status: Acute Code(s): Z74.09 - OTHER REDUCED MOBILITY SNOMED Code(s): 230668193 (9) History of renal cell carcinoma Current Visit: Yes Status: Acute Code(s): Z85.528 - PERSONAL HISTORY OF OTH ER MALIGNANT NEOPLASM OF KIDNEY SNOMED Code(s): 784105271 (10) Elevated troponin Current Visit: Yes Status: Acute Code(s): R79.89 - OTHER SPECIFIED ABNORMAL FINDINGS OF BLOOD CHEMISTRY SNOMED Code(s): 433697197 (11) Metastatic disease Current Visit: Yes Status: Acute Code(s): C79.9 - SECONDARY MALIGNANT NEOPLASM OF UNSPECIFIED SITE SNOMED Code(s): 073008984 (12) Hx of total knee arthroplasty Current Visit: Yes Status: Acute Code(s): Z96.659 - PRESENCE OF UNSPECIFIED ARTIFICIAL KNEE JOINT SNOMED Code(s): 4214230118843 Plan: Plan: 1. Patient has been discussed in detail with Dr. Jose Gamez. Patient has been experiencing significant low back pain over the past month without injury which has been severe over the past 3 days. He has difficulty ambulation and mobility due to his pain. He is not experiencing any lower extremity weakness jessi aterally. He denies any saddle anesthesia. He is voiding without difficulty. He has been able to have a bowel movement but has not had a bowel movement over the past 2 days it admits to decreased food intake. Reviewing of lumbar CT imaging does show bony changes most likely consistent with metastatic disease. CT imaging did not show evidence of compression fracture deformity. Patient does have history of renal cell carcinoma with surgical intervention. At this time we'll plan to obtain MRI imaging of his thoracic and lumbar spine with and without contrast for further evaluation. We will most likely plan for bracing following the completion and reviewing of this imaging. We discussed other than to get out of bed to use the restroom, we will plan for the patient to remain in bed until following the completion and reviewing of his imaging. Patient feels this is a good plan of care. We will continue to follow patient closely. 2. Patient will continue be seeing him by multiple other medical providers including cardiology and medicine. 3. Patient is waiting for consultation with oncology and radiation oncology. Time with Patient: Greater than 30 (Including obtaining history, physical examination, reviewing of imaging, and dictation.)
--- NOTE | 2019-10-16 14:18 | P.CONS ---
History of Present Illness - Reason for Consult Consult date: 10/16/19 Bone metastasis. History of renal cancer - History of Present Illness Patient is a 64-year-old white male, with a known history of right-sided renal cell carcinoma. The patient had partial nephrectomy for the same in 2017 at . He is not aware of the exact type of cancer. The patient has been following with urology at with serial imaging. Most recent imaging was in 04/02 showing only a new L2 endplate lesion that was felt to be most likely degenerative. The patient had no symptoms, and one year follow-up was recommended The patient states that he started having left-sided back pain radiating into the buttock and down the leg about a month ago. Initially this was mild and intermittent but subsequently became more persistent and severe. He started to have progressive difficulty in walking and bearing weight on the left leg. About 3 days ago he also lost control of his urine. He therefore came into the emergency room and had a CT of the lumbar spine. This showed multiple areas of osteolytic metastatic-appearing lesions, including masslike area involving the left sacrum, 6.5 cm. He was therefore admitted for further management and consult placed. He denies any other history of malignancy. He denied history of smoking Review of Systems Constitutional: Reports poor appetite, Reports weakness, Reports weight loss Eyes: denies blurred vision, denies pain Ears: deny: decreased hearing, ear discharge, earache, tinnitus Ears, nose, mouth and throat: Denies headache, Denies sore throat Cardiovascular: Reports as per HPI Respiratory: Denies cough Gastrointestinal: Denies abdominal pain, Denies diarrhea, Denies nausea, Denies vomiting Genitourinary: Reports incontinence Musculoskeletal: Reports as per HPI, Reports muscle weakness, Reports shooting leg pain Musculoskeletal: left: hip pain Integumentary: Denies pruritus, Denies rash Neurological: Denies numbness, Denies weakness Psychiatric: Denies anxiety, Denies depression Endocrine: Reports weight change Hematologic/Lymphatic: Reports as per HPI Past Medical History Past Medical History: Hypertension Additional Past Medical History / Comment(s): back pain, partial nephrectomy, bilat knee replacement, R sided kidney ca History of Any Multi-Drug Resistant Organisms: None Reported Past Surgical History: Joint Replacement, Orthopedic Surgery Additional Past Surgical History / Comment(s): carpel tunnel, cataract Past Psychological History: No Psychological Hx Reported Smoking Status: Never smoker Past Alcohol Use History: None Reported Past Drug Use History: None Reported Medications and Allergies Home Medications Medication Instructions Recorded Confirmed Type Hydrocodone/Acetaminophen [[place] 1 each PO Q6HR PRN #30 tab 04/11/16 Rx 5-325] Ondansetron Odt [Zofran ODT] 10 mg PO Q8HR PRN #5 tab 04/11/16 Rx Tamsulosin [Flomax] 0.4 mg PO DAILY #14 cap 04/11/16 Rx Allergies Allergy/AdvReac Type Severity Reaction Status Date / Time acetaminophen [From [place]] Allergy Unknown Verified 10/15/19 22:38 hydrocodone [From [place]] Allergy Unknown Verified 10/15/19 22:38 Physical Exam Vitals: Vital Signs Temp Pulse Pulse Resp BP BP Pulse Ox 10/16/19 12:05 99.8 F H 108 H 18 127/67 93 L 10/16/19 08:25 99.6 F 99 19 131/73 93 L 10/16/19 04:15 100 16 10/16/19 02:50 98.6 F 92 16 130/79 98 10/16/19 02:36 99.7 F H 100 18 134/74 99 10/16/19 01:34 98.8 F 89 18 120/71 95 10/15/19 22:34 98.8 F 95 18 129/64 98 Intake and Output 10/15/19 10/16/19 10/16/19 22:59 06:59 14:59 Output Total 0 800 Balance 0 -800 Output: Urine 0 800 Other: Voiding Method Urinal Weight 99.79 kg 99.5 kg - Constitutional General appearance: no acute distress (Laying flat in bed) - EENT Eyes: EOMI, PERRLA ENT: hearing grossly normal, normal oropharynx - Neck Neck: no lymphadenopathy - Respiratory Respiratory: bilateral: CTA - Cardiovascular Rhythm: regular Heart sounds: normal: S1, S2 - Gastrointestinal General gastrointestinal: normal bowel sounds, soft - Integumentary Integumentary: normal - Neurologic Left lower extremity proximal strength 4/5 versus 5/5 on right. No sensory loss. Distal strength maintained. Sensation in perineal area normal Neurologic: CNII-XII intact - Musculoskeletal Musculoskeletal: left sided weakness - Psychiatric Psychiatric: A&O x's 3, appropriate affect Results CBC & Chem 7: 10/16/19 01:09 10/16/19 01:09 Labs: Abnormal Lab Results - Last 24 Hours (Table) 10/16/19 10/16/19 10/16/19 Range/Units 00:49 01:09 01:09 RBC 2.54 L (4.30-5.90) m/uL Hgb 8.1 L (13.0-17.5) gm/dL Hct 24.9 L (39.0-53.0) % RDW 17.2 H (11.5-15.5) % Plt Count 137 L (150-450) k/uL Neutrophils # 9.0 H (1.3-7.7) k/uL Lymphocytes # 0.4 L (1.0-4.8) k/uL Sodium 132 L (137-145) mmol/L Chloride 97 L (98-107) mmol/L BUN 36 H (9-20) mg/dL Creatinine 1.83 H (0.66-1.25) mg/dL Glucose 110 H (74-99) mg/dL POC Glucose (mg/dL) (75-99) mg/dL AST 98 H (17-59) U/L ALT 80 H (4-49) U/L Troponin I (0.000-0.034) ng/mL Total Protein 13.5 H (6.3-8.2) g/dL Albumin 3.3 L (3.5-5.0) g/dL Urine Protein 2+ H (Negative) Urine Bacteria Rare H (None) /hpf Urine Mucus Rare H (None) /hpf 10/16/19 10/16/19 10/16/19 Range/Units 01:09 01:21 06:41 RBC (4.30-5.90) m/uL Hgb (13.0-17.5) gm/dL Hct (39.0-53.0) % RDW (11.5-15.5) % Plt Count (150-450) k/uL Neutrophils # (1.3-7.7) k/uL Lymphocytes # (1.0-4.8) k/uL Sodium (137-145) mmol/L Chloride (98-107) mmol/L BUN (9-20) mg/dL Creatinine (0.66-1.25) mg/dL Glucose (74-99) mg/dL POC Glucose (mg/dL) 119 H (75-99) mg/dL AST (17-59) U/L ALT (4-49) U/L Troponin I 0.074 H* 0.071 H* (0.000-0.034) ng/mL Total Protein (6.3-8.2) g/dL Albumin (3.5-5.0) g/dL Urine Protein (Negative) Urine Bacteria (None) /hpf Urine Mucus (None) /hpf 10/16/19 Range/Units 12:16 RBC (4.30-5.90) m/uL Hgb (13.0-17.5) gm/dL Hct (39.0-53.0) % RDW (11.5-15.5) % Plt Count (150-450) k/uL Neutrophils # (1.3-7.7) k/uL Lymphocytes # (1.0-4.8) k/uL Sodium (137-145) mmol/L Chloride (98-107) mmol/L BUN (9-20) mg/dL Creatinine (0.66-1.25) mg/dL Glucose (74-99) mg/dL POC Glucose (mg/dL) (75-99) mg/dL AST (17-59) U/L ALT (4-49) U/L Troponin I 0.064 H* (0.000-0.034) ng/mL Total Protein (6.3-8.2) g/dL Albumin (3.5-5.0) g/dL Urine Protein (Negative) Urine Bacteria (None) /hpf Urine Mucus (None) /hpf Comments: CT lumbar spine report reviewed US - abdomen: report reviewed MRI - abdomen: report reviewed Assessment and Plan (1) Bone metastases Narrative/Plan: The patient is presented with increasing symptoms over the last month, with a CAT scan showing evidence of widespread bone metastasis involving the lumbosacral spine. His symptoms are most likely related to the large left-sided sacral mass. - The results of the scan and indications were discussed in detail with him. Given his prior history of renal cell cancer metastatic disease from the same would be the primary differential. However other primary sites are not ruled out, especially since the lesions are described as lytic. - Continue pain medications - Start IV steroid - Additional imaging will be ordered to check for other sites and extent of disease, which will also help to check for any other possible primary sites - Check protein electrophoresis studies and PSA - Consult IR for biopsy for tissue diagnosis - The patient has no evidence of cord compression by exam. His symptoms are most likely due to local nerve root/plexus compromise by the large sacral mass. Current Visit: Yes Status: Acute Code(s): C79.51 - SECONDARY MALIGNANT NEOPLASM OF BONE SNOMED Code(s): 05161243 (2) History of renal cell carcinoma Narrative/Plan: As noted above. Current Visit: Yes Status: Acute Code(s): Z85.528 - PERSONAL HISTORY OF OTHER MALIGNANT NEOPLASM OF KIDNEY SNOMED Code(s): 128055219 (3) Anemia Narrative/Plan: This appears to be new, compared to prior labs available in the chart. Anemia workup will be ordered Current Visit: Yes Status: Acute Code(s): D64.9 - ANEMIA, UNSPECIFIED SNOMED Code(s): 369334194
--- NOTE | 2019-10-16 15:38 | CT ---
EXAMINATION TYPE: CT chest wo con DATE OF EXAM: 10/16/2019 COMPARISON: 11/19/2018 HISTORY: Renal cell CA, R/O metastatic disease CT DLP: 707.1 mGycm Automated exposure control for dose reduction was used. Multiple axial sections were obtained from the thoracic inlet to the diaphragm without contrast. There is mild right pleural effusion. There is mild atelectasis right lung base. There is no evidence of a pulmonary mass. Heart size is top normal. There is no pericardial effusion. There is 2.5 cm ariella cified pretracheal lymph node. There is small calcified granuloma right pulmonary hilum. There are ankylotic changes in the thoracic spine. There is extensive demineralization of the thoraci c vertebra. There are multiple lucencies seen in the ribs and scapula and proximal left and right hum erus. There is extensive osteolytic change in the thoracic vertebral bodies. The visualized liver and spleen appear intact. There is a complex 4.5 cm cyst at the right renal hilu m. There are multiple small bilateral renal calculi. IMPRESSION: Mild atelectasis at the right lung base with small right pleural effusion. No pulmonary mass. 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 Old granulomatous disease.
[2019-10-16] MEDS ORDERED: ALBUTEROL NEBULIZED 2.5 MG/3 ML INHALATION PRN (17:51)
--- NOTE | 2019-10-16 17:51 | P.HPIM ---
History of Present Illness H&P Date: 10/16/19 Chief Complaint: Increasing low back pain History of presenting complaint: This is a pleasant 64-year-old patient of Dr. Pro Serrano. 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 Patient had been doing well. This was done by Dr. Quinteros. From neurology. Patient now has been having progressively low back pain. Some weakness in the legs. No change in bowel or urine pattern. No fever no chills. Pain is becoming progressively worse. Computed tomography scan in the ER showed extensive osteolytic changes of the lumbar spine and the pelvis with widespread metastatic disease. A significant progression compared to the previous computed tomography scan. No evidence of compression fracture. Admitted for the same. Oncology was consulted. Patient has been tolerating a diet. Denies any obvious weight loss.. Tired Review of systems: GEN.: Tired EYES: None HEENT: None NECK: None RESPIRATORY: None CARDIOVASCULAR: None GASTROINTESTINAL: None GENITOURINARY: None MUSCULOSKELETAL: As above LYMPHATICS: None HEMATOLOGICAL: None PSYCHIATRY: None NEUROLOGICAL: None Past medical history to include: Hypertension, partial right nephrectomy for tumor/cancer, osteoarthritis Social history: . Works at [employer]. Discussed smoke or drink alcohol. Family history: Reviewed, noncontributory to presentation Physical examination: VITAL SIGNS: 98.8, 95, 18, 129/64, 98% on room air GENERAL: BMI 31.5, laying in bed awake. EYES: Pupils equal. Conjunctiva normal. HEENT: External appearance of nose and ears normal, oral cavity grossly normal. NECK: JVD not raised; masses not palpable. HEART: First and second heart sounds are normal; no edema. LUNGS: Respiratory rate normal; clear to auscultation. ABDOMEN: Soft, nontender, liver spleen not palpable, no masses palpable. PSYCH: Alert and oriented x3; mood and affect normal. NEUROLOGICAL: [Cranial nerves grossly intact; no facial asymmetry, patient able to raise both his legs to about 30 LYMPHATICS: No lymph nodes palpable in the axilla and neck INVESTIGATIONS, reviewed in the clinical context: White count 10.3 hemoglobin 8.1 platelets 137 potassium 4.2 sodium 132 bun 36 creatinine 1.83 AST 98 ALT 80 troponin I 0.074 COVID-19 PCR not detected Assessment: -This is a patient who's had right kidney partial nephrectomy for cancer over 2 years ago. Now presents with progressive pain in the lower back. Computed tomography scan has confirmed multiple lost related lesions in the lumbar and pelvic bone. Suggestive of metastatic disease. -Normocytic anemia likely from underlying malignancy -Troponin leak in the setting of renal failure, not in acute coronary syndrome -Acute kidney injury patient's last creatinine was 1.01 in January 2019. Possible ATN. Patient also takes benazepril, Zestril and Lasix at home. -Hyponatremia positive. Decreased salt intake -Hyperlipidemia Plan: At this point we'll discontinue patient's been on Cipro, Zestril and Lasix. Patient will be hydrated. Morphine for currently pain control. Close use a heating pad. IV fluids at 125 mL an hour. Consultation made to oncology and radiation oncology. Lovenox for DVT prophylaxis. Repeat labs in the morning. Patient will need further studies for metastatic workup. - Past Medical History Past Medical History: Hypertension Additional Past Medical History / Comment(s): back pain, partial nephrectomy, bilat knee replacement, R sided kidney ca History of Any Multi-Drug Resistant Organisms: None Reported Past Surgical History: Joint Replacement, Orthopedic Surgery Additional Past Surgical History / Comment(s): carpel tunnel, cataract Past Psychological History: No Psychological Hx Reported Smoking Status: Never smoker Past Alcohol Use History: None Reported Past Drug Use History: None Reported Medications and Allergies Home Medications Medication Instructions Recorded Confirmed Type Albuterol Nebulized [Ventolin 2.5 mg INHALATION RT-TID PRN 10/16/19 10/16/19 History Nebulized] Fluticasone Nasal B[place] [Flonase 1 spray EA NOSTRIL HS 10/16/19 10/16/19 History Nasal Burt] Furosemide [Lasix] 20 mg PO DAILY 10/16/19 10/16/19 History Gabapentin [Neurontin] 400 mg PO TID 10/16/19 10/16/19 History Lisinopril [Zestril] 10 mg PO DAILY 10/16/19 10/16/19 History Metoprolol Succinate (ER) [Toprol 50 mg PO DAILY 10/16/19 10/16/19 History Xl] Pravastatin Sodium [Pravachol] 20 mg PO DAILY 10/16/19 10/16/19 History amLODIPine BESYLATE/BENAZEPRIL 1 cap PO DAILY 10/16/19 10/16/19 History [Lotrel 5-10 MG] traMADol HCL 50 mg PO BID 10/16/19 10/16/19 History Allergies Allergy/AdvReac Type Severity Reaction Status Date / Time hydrocodone [From [place]] Allergy Unknown Verified 10/16/19 15:18 Physical Exam Vitals: Vital Signs Temp Pulse Pulse Resp BP BP Pulse Ox 10/16/19 08:25 99.6 F 99 19 131/73 93 L 10/16/19 04:15 100 16 10/16/19 02:50 98.6 F 92 16 130/79 98 10/16/19 02:36 99.7 F H 100 18 134/74 99 10/16/19 01:34 98.8 F 89 18 120/71 95 10/15/19 22:34 98.8 F 95 18 129/64 98 Intake and Output 10/15/19 10/16/19 10/16/19 22:59 06:59 14:59 Output Total 0 800 Balance 0 -800 Output: Urine 0 800 Other: Voiding Method Urinal Weight 99.79 kg 99.5 kg Results CBC & Chem 7: 10/16/19 01:09 10/16/19 01:09 Labs: Abnormal Lab Results - Last 24 Hours (Table) 10/16/19 10/16/19 10/16/19 Range/Units 00:49 01:09 01:09 RBC 2.54 L (4.30-5.90) m/uL Hgb 8.1 L (13.0-17.5) gm/dL Hct 24.9 L (39.0-53.0) % RDW 17.2 H (11.5-15.5) % Plt Count 137 L (150-450) k/uL Neutrophils # 9.0 H (1.3-7.7) k/uL Lymphocytes # 0.4 L (1.0-4.8) k/uL Sodium 132 L (137-145) mmol/L Chloride 97 L (98-107) mmol/L BUN 36 H (9-20) mg/dL Creatinine 1.83 H (0.66-1.25) mg/dL Glucose 110 H (74-99) mg/dL POC Glucose (mg/dL) (75-99) mg/dL AST 98 H (17-59) U/L ALT 80 H (4-49) U/L Troponin I (0.000-0.034) ng/mL Total Protein 13.5 H (6.3-8.2) g/dL Albumin 3.3 L (3.5-5.0) g/dL Urine Protein 2+ H (Negative) Urine Bacteria Rare H (None) /hpf Urine Mucus Rare H (None) /hpf 10/16/19 10/16/19 10/16/19 Range/Units 01:09 01:21 06:41 RBC (4.30-5.90) m/uL Hgb (13.0-17.5) gm/dL Hct (39.0-53.0) % RDW (11.5-15.5) % Plt Count (150-450) k/uL Neutrophils # (1.3-7.7) k/uL Lymphocytes # (1.0-4.8) k/uL Sodium (137-145) mmol/L Chloride (98-107) mmol/L BUN (9-20) mg/dL Creatinine (0.66-1.25) mg/dL Glucose (74-99) mg/dL POC Glucose (mg/dL) 119 H (75-99) mg/dL AST (17-59) U/L ALT (4-49) U/L Troponin I 0.074 H* 0.071 H* (0.000-0.034) ng/mL Total Protein (6.3-8.2) g/dL Albumin (3.5-5.0) g/dL Urine Protein (Negative) Urine Bacteria (None) /hpf Urine Mucus (None) /hpf Thrombosis Risk Factor Assmnt - Choose All That Apply Each Risk Factor Represents 2 Points: Age 61-74 years Thrombosis Risk Factor Assessment Total Risk Factor Score: 2 Thrombosis Risk Factor Assessment Level: Low Risk
[2019-10-16] MEDS: ENOXAPARIN 40 MG/0.4 ML SYRINGE SQ SCH (18:23)
[2019-10-17] MEDS: MORPHINE SULFATE 4 MG/ML SYRINGE IV PRN ×5 (01:00→20:51)
[2019-10-17] MEDS: traMADol 50 MG TAB PO SCH ×3 (01:03→21:43)
[2019-10-17] MEDS: SODIUM CHLORIDE 0.9% 1,000 ML IV SCH ×3 (05:28→17:56)
[2019-10-17 07:29] LABS: Anisocytosis Slight; Basophils % (A) 0 %; Eosinophils % (A) 1 %; HCT 23.7 % (39.0-53.0); HGB 7.5 gm/dL (13.0-17.5); Hypochromasia Moderate; Lymphocytes # (A) 0.2 k/uL (1.0-4.8); Lymphocytes % (A) 3 %; MCH 31.8 pg (25.0-35.0); MCHC 31.7 g/dL (31.0-37.0); MCV 100.3 fL (80.0-100.0); Macrocytosis Slight; Mean Platelet Volume 8.7; Monocytes # (A) 0.4 k/uL (0-1.0); Monocytes % (A) 8 %; Neutrophils # (A) 4.7 k/uL (1.3-7.7); Neutrophils % (A) 85 %; Platelet Count 130 k/uL (150-450); RBC 2.36 m/uL (4.30-5.90); RDW 17.2 % (11.5-15.5); WBC 5.5 k/uL (3.8-10.6)
[2019-10-17 07:33] LABS: Calcium 9.7 mg/dL (8.4-10.2); Potassium 3.9 mmol/L (3.5-5.1)
[2019-10-17 08:03] LABS: Total Protein 12.6 g/dL (6.3-8.2)
[2019-10-17 09:56] LABS: INR 1.5 (<1.2); Prothrombin Time 14.6 sec (9.0-12.0)
[2019-10-17] MEDS ORDERED: LISINOPRIL 10 MG TAB PO SCH (10:00)
[2019-10-17] MEDS ORDERED: ACETAMINOPHEN TAB 325 MG TAB PO PRN (10:00)
[2019-10-17] MEDS: METOPROLOL SUCCINATE (ER) 50 MG TAB.ER.24H PO SCH (10:49)
[2019-10-17] MEDS: PRAVASTATIN SODIUM 20 MG TAB PO SCH (10:51)
[2019-10-17] MEDS: GABAPENTIN 400 MG CAP PO SCH ×3 (10:51→20:51)
[2019-10-17] MEDS: amLODIPine 5 MG TAB PO SCH (10:51)
[2019-10-17 11:18] LABS: % Iron Saturation 13.53 (15.00-50.00); Ferritin 1542.8 ng/mL (22.0-322.0)
[2019-10-17 11:33] LABS: Protein, Total 12.4 g/dL (6.2-8.2)
[2019-10-17] MEDS: ENOXAPARIN 40 MG/0.4 ML SYRINGE SQ SCH (11:56)
--- NOTE | 2019-10-17 12:12 | P.PN ---
Subjective Progress Note Date: 10/17/19 This is a 64-year-old gentleman with history of renal cell cancer status post surgery, hypertension, who presented to the hospital with complaints of lower back discomfort which has been worsening over the past one month or so, patient states that the pain radiates down his leg. He also states that he was having some difficulty holding his urine during the night when he needed to get up to use the bathroom. He denies having any difficulty in breathing, no chest discomfort or palpitations His EKG on presentation here showed a normal sinus rhythm with incomplete left bundle branch block pattern and nonspecific ST-T wave changes. Blood pressure 130/70 with a heart rate in the 90s, respirations 16, 90% on room air. Temperature 99.7. White blood cell count 10.3, hemoglobin 8.1, platelet count 137. Sodium 132, potassium 4.2, BUN 36 and creatinine 1.8. Patient's baseline creatinine appears to be 0.8. ST 98, ALT 80, troponin 0.07, 0.07. [place] virus not detected. A lumbar CT was performed which revealed extensive osteolytic changes in the lumbar spine consistent with widespread metastatic disease with significant progression. Because of the abnormality in troponin at cardiology consultation has been requested. We will obtain an echocardiogram with Doppler study. 10/17/2019 Patient was seen and examined this morning, appears to be depressed. Overall he states that he had a fairly good night, was just recently given something for pain, not complaining of back pain at the time of my examination. His echocardiogram with Doppler study has been performed but is yet pending. Blood pressure 138/70 with a heart rate of 109. Patient is running fevers, this morning 101.7. White blood cell count 5.5, hemoglobin 7.5, platelet count 1:30. Sodium 136, potassium 3.9, BUN 36, creatinine 1.9. Objective - Vital Signs Vital signs: Vital Signs Temp 101.7 F H 10/17/19 08:40 Pulse 109 H 10/17/19 08:40 Resp 18 10/17/19 08:40 BP 139/74 10/17/19 08:40 Pulse Ox 95 10/17/19 08:40 Intake & Output 10/16/19 10/17/19 10/17/19 18:59 06:59 18:59 Intake Total 525 120 Output Total 1200 550 250 Balance -675 -550 -130 Intake: Intake, IV Titration 525 Amount Sodium Chloride 0.9% 1, 525 000 ml @ 75 mls/hr IV . [id number] [facility] Rx#:[id number] Oral 120 Output: Urine 1200 550 250 Other: Voiding Method Urinal Urinal # Voids 1 - Exam PHYSICAL EXAMINATION: GENERAL: 64-year-old gentleman in no acute distress at the time of my examination HEENT: Head is atraumatic, normocephalic. Pupils equal, round. Sclera anicteric. Conjunctiva are clear. Mucous membranes of the mouth are moist. Neck is supple. There is no elevated jugular venous pressure. No carotid bruit is heard. HEART EXAMINATION: Heart S1, S2 normal. No murmur or gallop heard. CHEST EXAMINATION: Lungs are clear to auscultation and precussion. No chest wall tenderness is noted on palpation or with deep breathing. ABDOMEN: Soft, nontender. Bowel sounds are heard. No organomegaly noted. EXTREMITIES: 2+ peripheral pulses with no evidence of peripheral edema and no calf tenderness noted. NEUROLOGIC patient is awake, alert and oriented 3 . . - Labs CBC & Chem 7: 10/17/19 06:43 10/17/19 06:43 Labs: Abnormal Lab Results - Last 24 Hours (Table) 10/16/19 10/16/19 10/16/19 Range/Units 01:09 01:09 01:09 RBC (4.30-5.90) m/uL Hgb (13.0-17.5) gm/dL Hct (39.0-53.0) % MCV (80.0-100.0) fL RDW (11.5-15.5) % Plt Count (150-450) k/uL Lymphocytes # (1.0-4.8) k/uL ESR >140 H (0-15) mm/hr PT (9.0-12.0) sec INR (<1.2) Sodium (137-145) mmol/L BUN (9-20) mg/dL Creatinine (0.66-1.25) mg/dL Glucose (74-99) mg/dL Iron 23 L (65-175) ug/dL TIBC 170 L (228-460) ug/dL % Saturation 13.53 L (15.00-50.00) Ferritin 1542.8 H (22.0-322.0) ng/mL AST (17-59) U/L ALT (4-49) U/L Troponin I (0.000-0.034) ng/mL Total Protein (6.3-8.2) g/dL Total Protein (PEP) 12.4 H (6.2-8.2) g/dL Albumin (3.5-5.0) g/dL Vitamin B12 1219.0 H (200.0-944.0) pg/mL Free [place] LC, Quant 471.00 H (0.33-1.94) mg/dL Free Lambda LC, Quant 0.18 L (0.57-2.63) mg/dL 10/16/19 10/17/19 10/17/19 Range/Units 12:16 06:43 06:43 RBC 2.36 L (4.30-5.90) m/uL Hgb 7.5 L (13.0-17.5) gm/dL Hct 23.7 L (39.0-53.0) % MCV 100.3 H (80.0-100.0) fL RDW 17.2 H (11.5-15.5) % Plt Count 130 L (150-450) k/uL Lymphocytes # 0.2 L (1.0-4.8) k/uL ESR (0-15) mm/hr PT (9.0-12.0) sec INR (<1.2) Sodium 136 L (137-145) mmol/L BUN 36 H (9-20) mg/dL Creatinine 1.96 H (0.66-1.25) mg/dL Glucose 103 H (74-99) mg/dL Iron (65-175) ug/dL TIBC (228-460) ug/dL % Saturation (15.00-50.00) Ferritin (22.0-322.0) ng/mL AST 280 H (17-59) U/L ALT 176 H (4-49) U/L Troponin I 0.064 H* (0.000-0.034) ng/mL Total Protein 12.6 H (6.3-8.2) g/dL Total Protein (PEP) (6.2-8.2) g/dL Albumin 3.0 L (3.5-5.0) g/dL Vitamin B12 (200.0-944.0) pg/mL Free [place] LC, Quant (0.33-1.94) mg/dL Free Lambda LC, Quant (0.57-2.63) mg/dL 10/17/19 Range/Units 09:14 RBC (4.30-5.90) m/uL Hgb (13.0-17.5) gm/dL Hct (39.0-53.0) % MCV (80.0-100.0) fL RDW (11.5-15.5) % Plt Count (150-450) k/uL Lymphocytes # (1.0-4.8) k/uL ESR (0-15) mm/hr PT 14.6 H (9.0-12.0) sec INR 1.5 H (<1.2) Sodium (137-145) mmol/L BUN (9-20) mg/dL Creatinine (0.66-1.25) mg/dL Glucose (74-99) mg/dL Iron (65-175) ug/dL TIBC (228-460) ug/dL % Saturation (15.00-50.00) Ferritin (22.0-322.0) ng/mL AST (17-59) U/L ALT (4-49) U/L Troponin I (0.000-0.034) ng/mL Total Protein (6.3-8.2) g/dL Total Protein (PEP) (6.2-8.2) g/dL Albumin (3.5-5.0) g/dL Vitamin B12 (200.0-944.0) pg/mL Free [place] LC, Quant (0.33-1.94) mg/dL Free Lambda LC, Quant (0.57-2.63) mg/dL Assessment and Plan Plan: Assessment and plan #1 symptoms of lower back discomfort with evidence of osteolytic changes on lumbar CT consistent with widespread metastatic disease #2 history of renal cell carcinoma status post surgery #3 hypertension #4 abnormal troponin, 0.07, 0.07, not consistent with acute coronary syndrome, likely secondary to abnormal renal function. #5 acute on chronic renal insufficiency #6 anemia Plan We will review the patient's echocardiogram with Doppler study. Further recommendations then will be made. DNP note has been reviewed, I agree with a documented findings and plan of care. Patient was seen and examined.
--- NOTE | 2019-10-17 13:26 | P.PN ---
Progress Note - Text Progress Note Date: 10/17/19 I attempted to see the patient today at bedside. He is not in his room in this off for testing. I reviewed his chart and his images. The computed tomography scan shows diffuse bony changes throughout his thoracic and lumbar spine. There is evidence of metastatic lytic bone changes. There is some ankylosis through his thoracic and upper lumbar spine. There is some bony involvement through his pelvis as well. Presumably he is getting his MRI of his thoracic and lumbar spine which we will review further. He has been having some neurologic deficits and we will have further recommendations after the MRI is complete.
--- NOTE | 2019-10-17 13:36 | P.PN ---
Subjective Progress Note Date: 10/17/19 Principal diagnosis: Back pain, GARY In f/u today pt states we have his back pain managed fairly well, he can do some ADLs, can tell if he needs to have a bowel movement or urinate, is some urgency once sensation is felt. Denies numbness or tingling in the legs. Objective - Vital Signs Vital signs: Vital Signs Temp 101.7 F H 10/17/19 08:40 Pulse 109 H 10/17/19 08:40 Resp 18 10/17/19 08:40 BP 139/74 10/17/19 08:40 Pulse Ox 95 10/17/19 08:40 Intake & Output 10/16/19 10/17/19 10/17/19 18:59 06:59 18:59 Intake Total 525 120 Output Total 1200 550 250 Balance -675 -550 -130 Intake: Intake, IV Titration 525 Amount Sodium Chloride 0.9% 1, 525 000 ml @ 75 mls/hr IV . [id number] [facility] Rx#:[id number] Oral 120 Output: Urine 1200 550 250 Other: Voiding Method Urinal Urinal # Voids 1 - Constitutional General appearance: Present: average body habitus, cooperative, mild distress - EENT Eyes: Present: anicteric sclerae, EOMI ENT: Present: hearing grossly normal - Respiratory Respiratory: bilateral: CTA - Cardiovascular Rhythm: regular Heart sounds: normal: S1, S2 Abnormal Heart Sounds: Absent: systolic murmur, diastolic murmur, rub, S3 Gallop, S4 Gallop, click, other - Peripheral edema leg Peripheral Edema: bilateral: None - Gastrointestinal General gastrointestinal: Present: normal bowel sounds, soft - Neurologic Neurologic: Present: CNII-XII intact - Musculoskeletal Musculoskeletal Comment(s): BLE strength, R>L Musculoskeletal: Present: generalized weakness - Psychiatric Psychiatric: Present: A&O x's 3, appropriate affect, intact judgment & insight - Labs CBC & Chem 7: 10/17/19 06:43 10/17/19 06:43 Labs: Abnormal Lab Results - Last 24 Hours (Table) 10/16/19 10/16/19 10/16/19 Range/Units 01:09 01:09 01:09 RBC (4.30-5.90) m/uL Hgb (13.0-17.5) gm/dL Hct (39.0-53.0) % MCV (80.0-100.0) fL RDW (11.5-15.5) % Plt Count (150-450) k/uL Lymphocytes # (1.0-4.8) k/uL ESR >140 H (0-15) mm/hr PT (9.0-12.0) sec INR (<1.2) Sodium (137-145) mmol/L BUN (9-20) mg/dL Creatinine (0.66-1.25) mg/dL Glucose (74-99) mg/dL Iron 23 L (65-175) ug/dL TIBC 170 L (228-460) ug/dL % Saturation 13.53 L (15.00-50.00) Ferritin 1542.8 H (22.0-322.0) ng/mL AST (17-59) U/L ALT (4-49) U/L Total Protein (6.3-8.2) g/dL Total Protein (PEP) 12.4 H (6.2-8.2) g/dL Albumin (3.5-5.0) g/dL Vitamin B12 1219.0 H (200.0-944.0) pg/mL Free [place] LC, Quant 471.00 H (0.33-1.94) mg/dL Free [place] LC, Quant 0.18 L (0.57-2.63) mg/dL 10/17/19 10/17/19 10/17/19 Range/Units 06:43 06:43 09:14 RBC 2.36 L (4.30-5.90) m/uL Hgb 7.5 L (13.0-17.5) gm/dL Hct 23.7 L (39.0-53.0) % MCV 100.3 H (80.0-100.0) fL RDW 17.2 H (11.5-15.5) % Plt Count 130 L (150-450) k/uL Lymphocytes # 0.2 L (1.0-4.8) k/uL ESR (0-15) mm/hr PT 14.6 H (9.0-12.0) sec INR 1.5 H (<1.2) Sodium 136 L (137-145) mmol/L BUN 36 H (9-20) mg/dL Creatinine 1.96 H (0.66-1.25) mg/dL Glucose 103 H (74-99) mg/dL Iron (65-175) ug/dL TIBC (228-460) ug/dL % Saturation (15.00-50.00) Ferritin (22.0-322.0) ng/mL AST 280 H (17-59) U/L ALT 176 H (4-49) U/L Total Protein 12.6 H (6.3-8.2) g/dL Total Protein (PEP) (6.2-8.2) g/dL Albumin 3.0 L (3.5-5.0) g/dL Vitamin B12 (200.0-944.0) pg/mL Free [place] LC, Quant (0.33-1.94) mg/dL Free Lambda LC, Quant (0.57-2.63) mg/dL - Imaging and Cardiology CT scan - chest: report reviewed (no masses, bone mets noted) Assessment and Plan (1) Sacral mass Narrative/Plan: Pending biopsy with Interventional Radiology. Current Visit: Yes Status: Acute Priority: High Code(s): M53.3 - SACROCOCCYGEAL DISORDERS, NOT ELSEWHERE CLASSIFIED SNOMED Code(s): 97378705 (2) Bone metastases Narrative/Plan: Radiation Oncology consult for painful bone mets Current Visit: Yes Status: Acute Priority: High Code(s): C79.51 - SECONDARY MALIGNANT NEOPLASM OF BONE SNOMED Code(s): 28351516 (3) Back pain Narrative/Plan: Secondary to bone mets. Pt on ultram at home, he has had 2 doses of IV morphine since admit. He is allergic to hydrocodone. Will have to either change frequency of ultram and see if that controls his pain or consider morphine oral for pain control at home. Discussed case with Internal Medicine Medications for prevention of narcotic induced constipation ordered Current Visit: Yes Status: Acute Priority: High Code(s): M54.9 - DORSALGIA, UNSPECIFIED SNOMED Code(s): 273189183 (4) GARY (acute kidney injury) Narrative/Plan: Hx of renal cancer-type unknown-partial nephrectomy. Myeloma work up ordered based on presentation Current Visit: Yes Status: Acute Priority: High Code(s): N17.9 - ACUTE KIDNEY FAILURE, UNSPECIFIED SNOMED Code(s): 14078827 (5) Anemia Narrative/Plan: Anemia work up pending, no transfusion needed today Current Visit: Yes Status: Acute Priority: High Code(s): D64.9 - ANEMIA, UNSPECIFIED SNOMED Code(s): 905412046 (6) History of renal cell carcinoma Narrative/Plan: Treated by Dr. Verdugo at [facility]. Have requested some info re: pt diagnosis and treatment. Current Visit: Yes Status: Chronic Priority: High Code(s): Z85.528 - PERSONAL HISTORY OF OTHER MALIGNANT NEOPLASM OF KIDNEY SNOMED Code(s): 838534996 Plan: PSA pending
[2019-10-17 14:04] LABS: Albumin 2.55 g/dL (3.80-4.90); Gamma Globulin 7.87 g/dL (0.70-1.50)
--- NOTE | 2019-10-17 15:03 | MR ---
EXAMINATION TYPE: MR tspine/lspine wo/w con DATE OF EXAM: 10/17/2019 2:39 PM COMPARISON: Recent CT chest HISTORY: Back pain, hx renal cell carcinoma, R/O metastatic disease Multiplanar MultiSpin echo imaging of the thoracic spine was performed. Disc spaces: There is moderate multilevel degenerative disc space narrowing. Anterior syndesmophyte f ormation noted suggesting underlying ankylosing spondylitis. Spinal canal: No evidence for canal stenosis. No intrinsic or extrinsic lesion. Thoracic spinal cord: Thoracic spinal cord is of normal caliber and signal. Paraspinal soft tissues: No evidence for paraspinal mass. No destructive lesions seen. Vertebral segments: Diffuse osteolytic metastases are seen throughout the thoracic spine with heterog enous enhancement. No evidence for a destructive mass, compression fracture or epidural mass at this time. IMPRESSION: 1. Osteolytic metastases throughout the thoracic spine. 2. Findings suggest ankylosing spondylitis. EXAMINATION TYPE: MR tspine/jeanpine wo/w con DATE OF EXAM: 10/17/2019 2:39 PM COMPARISON: NONE HISTORY: Back pain, hx renal cell carcinoma, R/O metastatic disease CONTRAST: The patient was injected with 10 mL intravenous Gadavist gadolinium contrast. Multiplanar, MultiSpin echo imaging of the lumbar spine was performed. L1-L2: Moderate disc desiccation and circumferential disc bulge. Effacement ventral thecal sac with r ight lateral recess stenosis and bilateral foraminal encroachment. Small lesions noted with bony oste openia and a heterogenous enhancement to suggest underlying osteolytic metastases. L2-L3: Moderate disc desiccation and circumferential disc bulge. Effacement ventral thecal sac with r ight lateral recess stenosis and bilateral foraminal encroachment. Small lesions noted with bony oste openia and heterogenous enhancement to suggest underlying osteolytic metastases. L3-L4: Moderate disc desiccation and circumferential disc bulge. Effacement ventral thecal sac with r ight lateral recess stenosis and bilateral foraminal encroachment. Small lesions noted with bony oste openia and heterogenous enhancement to suggest underlying osteolytic metastases. L4-L5: Moderate to severe degenerative disc desiccation with circumferential disc bulge and partial e ncapsulating spur resulting in mild central stenosis. Small lesions noted with bony osteopenia and h eterogenous enhancement to suggest underlying osteolytic metastases. L5-S1: Moderate disc desiccation. Posterocentral disc bulge. No central stenosis or lateral recess st enosis. Lumbar segments are intact. No paraspinal masses are identified. Conus medullaris has a normal appe arance. IMPRESSION: 1. Osteolytic metastatic disease suggested without compression fracture or bony destructive process. 2. Degenerative disc disease as discussed
--- NOTE | 2019-10-17 18:13 | P.PN ---
Progress Note - Text Progress Note Date: 10/17/19 Chief Complaint: Increasing low back pain History of presenting complaint: This is a pleasant 64-year-old patient of Dr. Pro Serrano. 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 Patient had been doing well. This was done by Dr. Quinteros. From neurology. Patient now has been having progressively low back pain. Some weakness in the legs. No change in bowel or urine pattern. No fever no chills. Pain is becoming progressively worse. Computed tomography scan in the ER showed extensive osteolytic changes of the lumbar spine and the pelvis with widespread metastatic disease. A significant progression compared to the previous computed tomography scan. No evidence of compression fracture. Admitted for the same. Oncology was consulted. Patient has been tolerating a diet. Denies any obvious weight loss.. Tired Admitted with-metastatic disease to the bone including the lumbar spine pelvic bone rib cage. Today-laying in bed. Pain control at rest. Workup in place per oncology. MRI scheduled today. Review of systems: Was done for constitutional, cardiovascular, GI, pulmonary. relevant finding as above Active Medications Acetaminophen (Tylenol Tab) 650 mg PO Q6HR PRN PRN Reason: Fever and/ or Pain Last Admin: 10/17/19 10:51 Dose: 650 mg Documented by: Albuterol Sulfate (Ventolin Nebulized) 2.5 mg INHALATION RT-TID PRN PRN Reason: Shortness Of Breath Last Admin: 10/16/19 20:49 Dose: 2.5 mg Documented by: Amlodipine Besylate (Norvasc) 5 mg PO DAILY [facility] Last Admin: 10/17/19 10:51 Dose: 5 mg Documented by: Enoxaparin Sodium (Lovenox) 40 mg SQ DAILY [facility] Last Admin: 10/17/19 11:56 Dose: Not Given Documented by: Fluticasone Propionate (Flonase Nasal [place]) 1 spray EA NOSTRIL HS [facility] Furosemide (Lasix) 20 mg PO DAILY [facility] Gabapentin (Neurontin) 400 mg PO TID [facility] Last Admin: 10/17/19 17:44 Dose: 400 mg Documented by: Sodium Chloride (Saline 0.9%) 1,000 mls @ 130 mls/hr IV .Q7H42M [facility] Last Admin: 10/17/19 17:56 Dose: 130 mls/hr Documented by: Lisinopril (Zestril) 20 mg PO DAILY [facility] Metoprolol Succinate (Toprol Xl) 50 mg PO DAILY [facility] Last Admin: 10/17/19 10:49 Dose: 50 mg Documented by: Morphine Sulfate (Morphine Sulfate (Inj)) 4 mg IV Q4HR PRN PRN Reason: Severe Pain Last Admin: 10/17/19 15:07 Dose: 4 mg Documented by: Naloxone HCl (Narcan) 0.2 mg IV Q2M PRN PRN Reason: Opioid Reversal Pravastatin Sodium (Pravachol) 20 mg PO DAILY [facility] Last Admin: 10/17/19 10:51 Dose: 20 mg Documented by: Senna (Senokot) 8.6 mg PO BID [facility] Tramadol HCl (Ultram) 50 mg PO BID [facility] Last Admin: 10/17/19 10:49 Dose: 50 mg Documented by: Physical examination: VITAL SIGNS: 98.4, 93, 16, 126/73, 94% on room air GENERAL:, laying in bed awake. EYES: Pupils equal. Conjunctiva normal. HEENT: External appearance of nose and ears normal, oral cavity grossly normal. NECK: JVD not raised; masses not palpable. HEART: First and second heart sounds are normal; no edema. LUNGS: Respiratory rate normal; clear to auscultation. ABDOMEN: Soft, nontender, liver spleen not palpable, no masses palpable. PSYCH: Alert and oriented x3; mood and affect normal. NEUROLOGICAL: [Cranial nerves grossly intact; no facial asymmetry, patient able to raise both his legs to about 30 INVESTIGATIONS, reviewed in the clinical context: White count 5.5 hemoglobin 7.5 platelets 1:30 potassium 3.9 bun 26 creatinine 96 Pravachol lumbar spine MRI-osteolytic metastasis throughout the thoracic spine- without evidence of compression fracture. Evidence of DJD disease. At multiple levels. Previous testing White count 10.3 hemoglobin 8.1 platelets 137 potassium 4.2 sodium 132 bun 36 creatinine 1.83 AST 98 ALT 80 troponin I 0.074 COVID-19 PCR not detected Assessment: -This is a patient who's had right kidney partial nephrectomy for cancer over 2 years ago. Now presents with progressive pain in the lower back. Metastatic bone disease in multiple areas including the thoracic lumbar spine, pelvic bone rib cage -Normocytic anemia-from underlying malignancy -Troponin leak in the setting of renal failure, not in acute coronary syndrome -Acute kidney injury patient's last creatinine was 1.01 in January 2019. Possible ATN. Patient also takes benazepril, Zestril and Lasix at home. -Hyponatremia positive. Decreased salt intake -Hyperlipidemia -Multiple sites of DJD Plan: Continue with IV fluids. Pain control in place. Await further input from oncology -
[2019-10-17] MEDS: FLUTICASONE 50MCG/SPRAY NASAL 16GM EA NOSTRIL SCH (20:51)
[2019-10-17] MEDS: SENNOSIDES 8.6 MG TAB PO SCH (20:51)
[2019-10-17] MEDS: DEXAMETHASONE SOD PHOSPHATE 10 MG/ML 1 ML VIAL IV SCH ×2 (21:50→23:37)
[2019-10-18] MEDS ORDERED: VANCOMYCIN IV PER PHARMACY 1 EACH MISC MISCELLANE PRN (00:22)
[2019-10-18] MEDS ORDERED: VANCOMYCIN 1,750 MG in SODIUM CHLORIDE 0.9% 500 ML 500 ML IVPB ONE (00:30)
[2019-10-18] MEDS: SODIUM CHLORIDE 0.9% 1,000 ML IV SCH ×4 (06:20→23:48)
[2019-10-18 06:53] LABS: Calcium 9.8 mg/dL (8.4-10.2); Potassium 4.9 mmol/L (3.5-5.1)
--- NOTE | 2019-10-18 08:18 | P.CONS ---
History of Present Illness - Reason for Consult Consult date: 10/17/19 bone metastases Requesting physician: Fredy Hatch - Chief Complaint low back pain - History of Present Illness The patient is a 64-year-old male with a history of an early stage cancer of the right kidney status post partial nephrectomy in 2018. He now presents with one month of progressive low back pain, and imaging findings revealing diffuse bone metastases. The patient reports that approximately 1 month ago he developed discomfort in the low back. He states this initially was not overly bothersome, and he was able to do his normal routine activities. However, since this past week on or Thursday the pain became increasingly severe. He reports the pain is mostly in the left lower back toward the buttock. He reports that laying perfectly still in bed seems to decrease the pain, but any kind of movement, especially ambulation worsens it. He states the pain at current time is 8 out of 10 and can get up to 10 out of 10 if he's moving around. He also has noticed over the past few days that when he has the urge to urinate, the urine comes relatively quickly and he has had some difficulty getting to the restroom. He has not passed his bowels in the past couple days. He presented to the ER on October [address] scan of the lumbar spine revealed a 3.5 x 6.5 cm lytic sacral bone metastasis, with multiple pelvic and lumbar lesions. A CT scan of his c hest revealed a small right effusion, and extensive bony disease similar to the pelvis. MRI of the thoracic and lumbar spine again revealed extensive lytic bone disease, but no evidence of compression fracture or cord compression. The patient reports that his medications during this hospital stay have slightly improved his pain, but it is still quite severe. He is also noticing pain in the right shoulder, but admits this is less intense than his lower left back. He states that initially he had some pain radiating down the bilateral lower extremities, but that he does not have any numbness, tingling or weakness of the legs. The patient's lab workup has shown some acute kidney injury, anemia, and some elevated serum proteins. Lab work for multiple myeloma is currently pending and plan for a biopsy scheduled for tomorrow (10/17). Review of Systems Constitutional: Reports poor appetite, Denies chills, Denies fever Eyes: denies blurred vision Ears: deny: decreased hearing Ears, nose, mouth and throat: Denies epistaxis, Denies headache Cardiovascular: Denies chest pain, Denies edema Respiratory: Denies cough, Denies dyspnea Gastrointestinal: Denies abdominal pain Genitourinary: Reports incontinence (urge incontinence) Musculoskeletal: Reports low back pain, Denies frequent falls, Denies leg numbness/tingling Integumentary: Denies rash Neurological: Denies ataxia, Denies confusion Psychiatric: Denies confusion Past Medical History Past Medical History: Hypertension Additional Past Medical History / Comment(s): back pain, partial nephrectomy, bilat knee replacement, R sided kidney ca History of Any Multi-Drug Resistant Organisms: None Reported Past Surgical History: Joint Replacement, Orthopedic Surgery Additional Past Surgical History / Comment(s): carpel tunnel, cataract Past Psychological History: No Psychological Hx Reported Smoking Status: Never smoker Past Alcohol Use History: None Reported Past Drug Use History: None Reported Medications and Allergies Home Medications Medication Instructions Recorded Confirmed Type Albuterol Nebulized [Ventolin 2.5 mg INHALATION RT-TID PRN 10/16/19 10/16/19 History Nebulized] Fluticasone Nasal [place] [Flonase 1 spray EA NOSTRIL HS 10/16/19 10/16/19 History Nasal [place]] Furosemide [Lasix] 20 mg PO DAILY 10/16/19 10/16/19 History Gabapentin [Neurontin] 400 mg PO TID 10/16/19 10/16/19 History Lisinopril [Zestril] 10 mg PO DAILY 10/16/19 10/16/19 History Metoprolol Succinate (ER) [Toprol 50 mg PO DAILY 10/16/19 10/16/19 History Xl] Pravastatin Sodium [Pravachol] 20 mg PO DAILY 10/16/19 10/16/19 History amLODIPine BESYLATE/BENAZEPRIL 1 cap PO DAILY 10/16/19 10/16/19 History [Lotrel 5-10 MG] traMADol HCL 50 mg PO BID 10/16/19 10/16/19 History Allergies Allergy/AdvReac Type Severity Reaction Status Date / Time hydrocodone [From [place]] Allergy Unknown Verified 10/16/19 15:18 Physical Exam Vitals: Vital Signs Temp Pulse Resp BP Pulse Ox 10/18/19 05:00 97.7 F 82 16 130/80 93 L 10/17/19 21:20 100.0 F H 98 16 147/74 97 10/17/19 20:00 98.6 F 93 16 137/72 96 10/17/19 15:00 98.5 F 87 16 132/70 93 L 10/17/19 12:10 98.4 F 93 16 126/73 94 L 10/17/19 08:40 101.7 F H 109 H 18 139/74 95 Intake and Output 10/17/19 10/18/19 10/18/19 22:59 06:59 14:59 Intake Total 130 1840 Output Total 700 Balance 130 1140 Intake: Intake, IV Titration 130 1250 Amount Sodium Chloride 0.9% 1, 130 750 000 ml @ 130 mls/hr IV . Q7H42M [facility] Rx#:[id number] Vancomycin 1,750 mg In 500 Sodium Chloride 0.9% 500 ml 500 ml @ 167 mls/hr IVPB ONCE ONE Rx#: [id number] Oral 590 Output: Urine 700 Other: Voiding Method Urinal Weight 131 kg - Constitutional General appearance: mild distress - EENT Eyes: EOMI, PERRLA ENT: hearing grossly normal - Neck Neck: no lymphadenopathy - Respiratory Respiratory: bilateral: CTA - Cardiovascular Rhythm: regular - Gastrointestinal General gastrointestinal: no distended, no tenderness - Integumentary Integumentary: no calor, no rash - Neurologic Neurologic: CNII-XII intact - Musculoskeletal Musculoskeletal: strength equal bilaterally - Psychiatric Psychiatric: A&O x's 3, appropriate affect Results CBC & Chem 7: 10/17/19 06:43 10/18/19 06:23 Labs: Abnormal Lab Results - Last 24 Hours (Table) 10/16/19 10/16/19 10/17/19 Range/Units 01:09 01:09 06:43 PT (9.0-12.0) sec INR (<1.2) Sodium 136 L (137-145) mmol/L Chloride (98-107) mmol/L BUN 36 H (9-20) mg/dL Creatinine 1.96 H (0.66-1.25) mg/dL Glucose 103 H (74-99) mg/dL Iron 23 L (65-175) ug/dL TIBC 170 L (228-460) ug/dL % Saturation 13.53 L (15.00-50.00) Ferritin 1542.8 H (22.0-322.0) ng/mL AST 280 H (17-59) U/L ALT 176 H (4-49) U/L Total Protein 12.6 H (6.3-8.2) g/dL Total Protein (PEP) 12.4 H (6.2-8.2) g/dL Albumin 3.0 L (3.5-5.0) g/dL Albumin (PEP) 2.55 L (3.80-4.90) g/dL Lngpb-5-Ysqlikivi 0.41 H (0.10-0.40) g/dL Beta Globulins 0.58 L (0.60-1.30) g/dL Gamma Globulins 7.87 H (0.70-1.50) g/dL Vitamin B12 1219.0 H (200.0-944.0) pg/mL Free [place] LC, Quant 471.00 H (0.33-1.94) mg/dL Free [place] LC, Quant 0.18 L (0.57-2.63) mg/dL 10/17/19 10/18/19 Range/Units 09:14 06:23 PT 14.6 H (9.0-12.0) sec INR 1.5 H (<1.2) Sodium (137-145) mmol/L Chloride 108 H (98-107) mmol/L BUN 38 H (9-20) mg/dL Creatinine 1.68 H (0.66-1.25) mg/dL Glucose 140 H (74-99) mg/dL Iron (65-175) ug/dL TIBC (228-460) ug/dL % Saturation (15.00-50.00) Ferritin (22.0-322.0) ng/mL AST (17-59) U/L ALT (4-49) U/L Total Protein (6.3-8.2) g/dL Total Protein (PEP) (6.2-8.2) g/dL Albumin (3.5-5.0) g/dL Albumin (PEP) (3.80-4.90) g/dL Drhis-0-Gefyxuprq (0.10-0.40) g/dL Beta Globulins (0.60-1.30) g/dL Gamma Globulins (0.70-1.50) g/dL Vitamin B12 (200.0-944.0) pg/mL Free [place] LC, Quant (0.33-1.94) mg/dL Free [place] LC, Quant (0.57-2.63) mg/dL Microbiology - Last 24 Hours (Table) 10/17/19 09:33 Blood Culture Gram Stain - Preliminary Blood 10/17/19 09:33 Blood Culture - Final Blood 10/17/19 15:12 Urine Culture - Preliminary Urine,Voided CT scan - abdomen: report reviewed, image reviewed CT scan - chest: report reviewed, image reviewed CT scan - pelvis: report reviewed, image reviewed Assessment and Plan Plan: The patient is a 64-year-old male with a history of an early stage cancer of the right kidney status post partial nephrectomy in 2018. He now presents with one month of progressive low back pain, and imaging findings revealing diffuse bone metastases. 1. Left lower back pain: On the patient's imaging, there is no clear spinal cord compression or cauda equina syndrome. He has full strength in the lower extremities. However, he has a large left sacral mass with encroachment on the sacral plexus which is likely causing his significant pain and urinary com plaints. There is evident narrowing of the sacral foramen adjacent to the mass. Continue dexamethasone, and I discussed with the patient that I would recommend a course of palliative radiotherapy to this area. We will have the patient come for CT simulation tomorrow, and attempt to initiate his treatment urgently. I discussed with the patient that this would likely be delivered over one week w orth of treatments. I discussed that there would be minimal toxicity associated with treating this area. 2. Diffuse lytic bone disease: Based on the patient's imaging, there is no obvious primary site. It is possible this relates to his prior kidney cancer and myeloma is also in the differential. The patient is set for CT-guided biopsy tomorrow. We will likely initiate the treatment urgently despite not having a final pathology at this time. Time with Patient: Greater than 30
[2019-10-18] MEDS: DEXAMETHASONE SOD PHOSPHATE 10 MG/ML 1 ML VIAL IV SCH (09:10)
[2019-10-18] MEDS: SENNOSIDES 8.6 MG TAB PO SCH ×2 (09:16→20:13)
[2019-10-18] MEDS: GABAPENTIN 400 MG CAP PO SCH ×3 (09:16→20:57)
[2019-10-18] MEDS: amLODIPine 5 MG TAB PO SCH (09:16)
[2019-10-18] MEDS: METOPROLOL SUCCINATE (ER) 50 MG TAB.ER.24H PO SCH (09:16)
[2019-10-18] MEDS: FUROSEMIDE 20 MG TAB PO SCH (09:16)
[2019-10-18] MEDS: LISINOPRIL 10 MG TAB PO SCH (09:17)
[2019-10-18] MEDS: traMADol 50 MG TAB PO SCH ×4 (09:17→20:57)
[2019-10-18] MEDS: ENOXAPARIN 40 MG/0.4 ML SYRINGE SQ SCH (09:19)
--- NOTE | 2019-10-18 09:35 | ECHOF ---
Referral Reason:abn trop MEASUREMENTS -------- HEIGHT: 177.8 cm WEIGHT: 99.3 kg BP: 151/70 RVIDd: 3.5 cm (< 3.3) IVSd: 1.3 cm (0.6 - 1.1) LVIDd: 6.3 cm (3.9 - 5.3) LVPWd: 1.5 cm (0.6 - 1.1) IVSs: 1.7 cm LVIDs: 5.6 cm LVPWs: 1.7 cm LA Diam: 4.0 cm (2.7 - 3.8) LAESV Index (A-L): 34.43 ml/m Ao Diam: 3.0 cm (2.0 - 3.7) AV Cusp: 2.0 cm (1.5 - 2.6) MV EXCURSION: 23.232 mm (> 18.000) MV EF SLOPE: 83 mm/s (70 - 150) EPSS: 1.9 cm MV E Brett: 1.32 m/s MV DecT: 200 ms MV A Brett: 1.04 m/s MV E/A Ratio: 1.26 AV maxP.25 mmHg AV meanP.19 mmHg RAP: 15.00 mmHg RVSP: 62.97 mmHg FINDINGS -------- Resting tachycardia (HR>100bpm). This was a technically adequate study. The left ventricle is mildly dilated. There is moderate concentric left ventricular hypertrophy. Overall left ventricular systolic function is moderate-severely impaired with, an EF between 30 - 35 %. The right ventricle is mildly enlarged. LA is moderately dilated 34-39 ml/m2 The right atrium is normal in size. Interatrial and interventricular septum intact. There is mild aortic valve sclerosis. There is trace to mild mitral regurgitation. Mild tricuspid regurgitation present. There is severe pulmonary hypertension. The right ventricul ar systolic pressure, as measured by Doppler, is 62.97mmHg. The pulmonic valve was not well visualized. The aortic root size is normal. The inferior vena cava is dilated with no significant inspiratory collapse which is consistent estima dimitrios right atrial pressure of >15 mmHg. There is no pericardial effusion. CONCLUSIONS -------- 1. Resting tachycardia (HR>100bpm). 2. This was a technically adequate study. 3. The left ventricle is mildly dilated. 4. There is moderate concentric left ventricular hypertrophy. 5. Overall left ventricular systolic function is moderate-severely impaired with, an EF between 30 - 35 %. 6. The right ventricle is mildly enlarged. 7. LA is moderately dilated 34-39 ml/m2 8. The right atrium is normal in size. 9. Interatrial and interventricular septum intact. 10. There is mild aortic valve sclerosis. 11. There is trace to mild mitral regurgitation. 12. Mild tricuspid regurgitation present. 13. There is severe pulmonary hypertension. 14. The right ventricular systolic pressure, as measured by Doppler, is 62.97mmHg. 15. The pulmonic valve was not well visualized. 16. The aortic root size is normal. 17. The inferior vena cava is dilated with no significant inspiratory collapse which is consistent es timated right atrial pressure of >15 mmHg. 18. There is no pericardial effusion. RETAIL EVENT COORDINATOR: Ginny Ayala RDCS
--- NOTE | 2019-10-18 11:28 | P.PN ---
Subjective This is a pleasant 64-year-old male past medical history significant for hypertension, dyslipidemia, cardiomyopathy and renal cell carcinoma. He follows in the office with Dr. Arriaga. He presented to the hospital with symptoms of low back discomfort. 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 Radiation oncology following. Echocardiogram obtained reveals impaired LV systolic function with ejection fraction 30-35%, mild aortic valve sclerosis, mild tricuspid regurgitation and severe pulmonary hypertension with an RVSP of 62 mmHg. This is consistent with previous echocardiogram obtained in the office May 2019. No new wall motion abnormalities noted. Blood pressure 130/80 heart rate 82 afebrile this morning however had a temperature of 100F last evening. Laboratory data reviewed, sodium 139, potassium 4.9, creatinine 1.68. Currently maintained on amlodipine 5 mg daily, Lasix 20 mg daily, Toprol 50 mg daily, lisinopril 20 mg daily and pravastatin 20 mg daily. He is scheduled to undergo a CT biopsy prior to initiating radiation therapy. He is seen and examined sitting up in the chair in no acute distress. He continues to feel discomfort in the lower back. No chest pain, shortness of breath, dizziness or palpitations. GENERAL: Well-appearing, well-nourished and in no acute distress. NECK: Supple without JVD or thyromegaly. LUNGS: Breath sounds clear to auscultation bilaterally. Respiration equal and unlabored. No wheezes, rales or rhonchi. HEART: Regular rate and rhythm without murmurs, rubs or gallops. S1 and S2 heard. EXTREMITIES: Normal range of motion, no edema. No clubbing or cyanosis. Peripheral pulses intact. ASSESSMENT Osteolytic malignancy History of renal cell carcinoma status post partial nephrectomy Abnormal troponin neck consistent with acute coronary syndrome likely secondary to abnormal renal function Acute on chronic renal insufficiency Chronic systolic heart failure, clinically euvolemic. Hypertension Dyslipidemia PLAN No changes in echocardiogram from his baseline. Discontinue lisinopril and increase lotrel to 10/20 mg daily. Nurse Practitioner note has been reviewed, I agree with a documented findings and plan of care. Patient was seen and examined. Objective - Vital Signs Vital signs: Vital Signs Temp 97.7 F 10/18/19 05:00 Pulse 82 10/18/19 05:00 Resp 16 10/18/19 05:00 BP 130/80 10/18/19 05:00 Pulse Ox 93 L 10/18/19 05:00 Intake & Output 10/17/19 10/18/19 10/18/19 18:59 06:59 18:59 Intake Total 120 1970 360 Output Total 250 700 Balance -130 1270 360 Weight 131 kg 101.5 kg Intake: Intake, IV Titration 1380 Amount Sodium Chloride 0.9% 1, 880 000 ml @ 130 mls/hr IV . Q7H42M [facility] Rx#:[id number] Vancomycin 1,750 mg In 500 Sodium Chloride 0.9% 500 ml 500 ml @ 167 mls/hr IVPB ONCE ONE Rx#: [id number] Oral 120 590 360 Output: Urine 250 700 Other: Voiding Method Urinal Urinal # Voids 1 - Labs CBC & Chem 7: 10/17/19 06:43 10/18/19 06:23 Labs: Abnormal Lab Results - Last 24 Hours (Table) 10/16/19 10/16/19 10/18/19 Range/Units 01:09 01:09 06:23 Chloride 108 H (98-107) mmol/L BUN 38 H (9-20) mg/dL Creatinine 1.68 H (0.66-1.25) mg/dL Glucose 140 H (74-99) mg/dL Iron 23 L (65-175) ug/dL TIBC 170 L (228-460) ug/dL % Saturation 13.53 L (15.00-50.00) Ferritin 1542.8 H (22.0-322.0) ng/mL Total Protein (PEP) 12.4 H (6.2-8.2) g/dL Albumin (PEP) 2.55 L (3.80-4.90) g/dL Knkkb-2-Dfqgkzevc 0.41 H (0.10-0.40) g/dL Beta Globulins 0.58 L (0.60-1.30) g/dL Gamma Globulins 7.87 H (0.70-1.50) g/dL Vitamin B12 1219.0 H (200.0-944.0) pg/mL Free [place] LC, Quant 471.00 H (0.33-1.94) mg/dL Free Lambda LC, Quant 0.18 L (0.57-2.63) mg/dL Microbiology - Last 24 Hours (Table) 10/17/19 09:33 Blood Culture Gram Stain - Preliminary Blood 10/17/19 09:33 Blood Culture - Final Blood 10/17/19 15:12 Urine Culture - Preliminary Urine,Voided
--- NOTE | 2019-10-18 11:48 | P.PN ---
Progress Note - Text Progress Note Date: 10/18/19 Orthopedic spine: History of present illness: Patient is a very pleasant 64-year-old male who is seen and examined the bedside for follow-up evaluation of his low back pain. She has not had change in his symptoms since being seen and examined Thursday, but states his back pain has been better controlled. Patient states he has been experiencing increased low back pain over the past month without injury. His pain is been severe over the past 5 days. He states he has some pain that radiates from the lower lumbar spine into the left buttock. He was experiencing pain radiating down the left posterior thigh to the knee but that part has subsided. He denies any saddle anesthesia. His pain is most significant at the lower lumbar spine. His pain is exacerbated with coughing, sneezing, bending, twisting. He does have some pain at his thoracic spine as well most significant over the right mid to upper paraspinals. He denies any lower extremity weakness bilaterally. He was able to have MRI imaging of the thoracic and lumbar spine with and without contrast performed yesterday. He continues to eat and void without difficulty. He was able to have a bowel movement this morning. He is scheduled for percutaneous biopsy today. Patient is known to have a history of renal cell carcinoma with partial right kidney nephrectomy performed approximately 2 years ago. He states he has not had follow-up evaluation in this regard since that time his he was told he was cancer free. Patient presented to the emergency department due to his back pain. Lumbar CT imaging was taken at that time which was suspicious for metastatic disease to the lumbar spine. Lumbar imaging did not show evidence of compression fracture deformity. Patient also has some changes his troponin level during his evaluation emergency department. Continues to be seen by cardiology. He has been seen by radiology oncology, oncology, and medicine. Patient does admit to history of total knee arthroplasty bilaterally both performed by Dr. Craig. Documentation from oncology states the patient is currently receiving further workup for diagnosis of multiple myeloma. Physical exam: Patient is awake, alert, and oriented 3 Vital signs stable Good chest excursion with deep inspiration and expiration Examination of thoracic and lumbar spine reveals skin is intact with no abrasions, aspirations, or bruises; no erythema, purulence or signs of infection Significant pain with palpation along the midline of the lower lumbar spine and at the lumbosacral junction Pain with palpation over the right thoracic paraspinal muscles over the medial scapular border Dorsiflexion, plantarflexion, and extensor hallucis longus positive sustained bilaterally Lower extremity strength 5/5 bilaterally Patient does have active range of motion with hip flexion bilaterally but movements are slower due to increased low back pain Evidence of well-healed incisions over the anterior knees No lower extremity hyperreflexia bilaterally Straight leg test negative bilateral lower extremities Negative Lasegue's test bilaterally No signs or symptoms of DVT; no calf pain No pain with internal and external rotation of the hips bilaterally Neurovascularly intact Pertinent studies: MRI of the thoracic spine taken with and without contrast on 10/17/2019: Evidence of osteolytic metastasis throughout the thoracic spine without evidence of destructive lesion, destructive mass, epidural mass, or compression fracture deformity; visualized thoracic cord appears to be normal; no evidence of paraspinal mass; Evidence of ankylosing spondylitis in the thoracic spine and multilevel thoracic degenerative disc disease without evidence of significant stenosis at the thoracic spine MRI of the lumbar spine taken with and without contrast on 10/17/2019: Evidence of osteolytic metastatic disease throughout the lumbar spine without evidence of compression fracture deformity; no evidence of bony destruction in the lumbar spine; L1-2, L2-3 can L3-4 disc desiccation and disc bulging with bilateral neural foraminal encroachment and right lateral recess stenosis; L4-5 degenerative disc disease, disc desiccation, disc bulge resulting in mild spinal canal stenosis; L5-S1 degenerative disc disease CT of the lumbar spine taken on 10/15/2019: Extensive osteophytic changes in the lumbar spine and visualized pelvis consistent with widespread metastatic disease extending from the visualized vertebral bodies of T11 extending to S1 with significant progression as compared to previous imaging taken on 01/27/2019; degenerative disc disease throughout the lumbar spine most significant at L2-3, L4-5, and L5-S1; no evidence of vertebral body compression fracture; L4-5 and L5-S1 significant posterior osteophytic spurring; significant anterior osteophytic spurring with large anterior bridging spur at L2-3 with a left lateral spur at L2-3; L1-2 right lateral osteophytic spurring Assessment: 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 Craig Plan: 1. Patient's thoracic and lumbar MRI results have been discussed with the patient in detail. Review of imaging does show evidence of osteolytic metastatic disease throughout the thoracic and lumbar spines. Previous imaging also shows evidence of a pelvic involvement/mass. Patient is currently scheduled to undergo percutaneous biopsy today. Reviewing of imaging does not show evidence of compression fracture deformity in the thoracic or lumbar spines. His pain is better controlled since his admittance to the hospital. The patient continues to have pain most significant is lumbar spine. At this time, we'll plan to obtain bracing for his lumbar spine. A prescription has been written, signed, and provided the case management for an Exos LSO brace. Patient may wear this brace for comfort support as needed during ambulation and increased activities. Nursing states patient is most likely planning for discharge tomorrow. It was discussed once this brace is delivered and fitted appropriately, patient will be clear for discharge from an orthopedic spine standpoint. Following discharge, patient in follow-up with Sergo Wilkins PA-C or Dr. Jose Gamez at [facility] in approximately 2-3 weeks for further evaluation. I discussed in detail with the patient were not currently planning for acute surgical intervention in regards to his thoracic or lumbar spines. Patient feels as a good plan of care. 2. Patient will continue be seen today by multiple medical providers including medicine, oncology, and radiation oncology 3. Patient is currently scheduled for percutaneous biopsy today
--- NOTE | 2019-10-18 11:58 | P.PN ---
Subjective Progress Note Date: 10/18/19 Principal diagnosis: Back pain, GARY In f/u today pt is sitting in chair, pain is ok, he is having low back and BLE discomfort with ambulation, generalized weakness. No other c/o at this time. Objective - Vital Signs Vital signs: Vital Signs Temp 97.7 F 10/18/19 05:00 Pulse 82 10/18/19 05:00 Resp 16 10/18/19 05:00 BP 130/80 10/18/19 05:00 Pulse Ox 93 L 10/18/19 05:00 Intake & Output 10/17/19 10/18/19 10/18/19 18:59 06:59 18:59 Intake Total 120 1970 360 Output Total 250 700 Balance -130 1270 360 Weight 131 kg 101.5 kg Intake: Intake, IV Titration 1380 Amount Sodium Chloride 0.9% 1, 880 000 ml @ 130 mls/hr IV . Q7H42M [facility] Rx#:[id number] Vancomycin 1,750 mg In 500 Sodium Chloride 0.9% 500 ml 500 ml @ 167 mls/hr IVPB ONCE ONE Rx#: [id number] Oral 120 590 360 Output: Urine 250 700 Other: Voiding Method Urinal Urinal # Voids 1 - Exam WDWN, generally ill appearing man, sitting in chair, NAD, A&Ox4, respirations are even and unlabored at rest, skin is warm and dry to touch, mild edema in BLE - Constitutional General appearance: Present: cooperative - EENT Eyes: Present: anicteric sclerae, EOMI - Musculoskeletal Musculoskeletal: Present: generalized weakness - Psychiatric Psychiatric: Present: A&O x's 3, appropriate affect, intact judgment & insight - Labs CBC & Chem 7: 10/17/19 06:43 10/18/19 06:23 Labs: Abnormal Lab Results - Last 24 Hours (Table) 10/16/19 10/18/19 Range/Units 01:09 06:23 Chloride 108 H (98-107) mmol/L BUN 38 H (9-20) mg/dL Creatinine 1.68 H (0.66-1.25) mg/dL Glucose 140 H (74-99) mg/dL Albumin (PEP) 2.55 L (3.80-4.90) g/dL Cgjoa-[id number]-Nawkgosvx 0.41 H (0.10-0.40) g/dL Beta Globulins 0.58 L (0.60-1.30) g/dL Gamma Globulins 7.87 H (0.70-1.50) g/dL Free [place] LC, Quant 471.00 H (0.33-1.94) mg/dL Free Lambda LC, Quant 0.18 L (0.57-2.63) mg/dL Microbiology - Last 24 Hours (Table) 10/17/19 09:33 Blood Culture Gram Stain - Preliminary Blood 10/17/19 09:33 Blood Culture - Final Blood 10/17/19 15:12 Urine Culture - Preliminary Urine,Voided Assessment and Plan (1) Multiple myeloma Narrative/Plan: Amery light chain returned at 471, paraprotein is 7.74 g/dl. Dr. Hatch discussed diagnosis and prognosis with pt (certainly a better prognosis then metastatic renal cell). Cont with presacral mass biopsy with IR-sched for tomorrow, anticoagulation on hold Bone marrow biopsy outpatient D/W Rad Onc, proceed with Radiation to symptomatic presacral mass Current Visit: Yes Status: Acute Priority: High Code(s): C90.00 - MULTIPLE MYELOMA NOT HAVING ACHIEVED REMISSION SNOMED Code(s): 533875850 (2) Sacral mass Narrative/Plan: Pending biopsy with Interventional Radiology, delayed until 10/18 due to anticoagulation given. Current Visit: Yes Status: Acute Priority: High Code(s): M53.3 - SACROCOCCYGEAL DISORDERS, NOT ELSEWHERE CLASSIFIED SNOMED Code(s): 88714685 (3) Bone metastases Narrative/Plan: Radiation Oncology consult for painful bone mets/scaral mass. Aredia ordered, dose reduced for renal function Current Visit: Yes Status: Acute Priority: High Code(s): C79.51 - SECONDARY MALIGNANT NEOPLASM OF BONE SNOMED Code(s): 70971183 (4) Back pain Narrative/Plan: Secondary to bone mets/scacral mass. Pt on ultram at home, he has had 2 doses of IV morphine since admit. He is allergic to hydrocodone. Changed frequency of ultralm, discussed with Nursing Medications for prevention of narcotic induced constipation ordered Current Visit: Yes Status: Acute Priority: High Code(s): M54.9 - DORSALGIA, UNSPECIFIED SNOMED Code(s): 827561110 (5) GARY (acute kidney injury) Narrative/Plan: Hx of renal cancer-type unknown-partial nephrectomy. Myeloma work up positive Current Visit: Yes Status: Acute Priority: High Code(s): N17.9 - ACUTE KIDNEY FAILURE, UNSPECIFIED SNOMED Code(s): 09612933 (6) Anemia Narrative/Plan: Anemia of malignancy/inflammation, all studies low with significantly elevated ferritin. No iron. Hgb stable, no transfusion today. Use irradiated blood products if needed Current Visit: Yes Status: Acute Priority: High Code(s): D64.9 - ANEMIA, UNSPECIFIED SNOMED Code(s): 835993261 (7) History of renal cell carcinoma Narrative/Plan: Treated by Dr. Verdugo at [facility]. Have requested some info re: pt diagnosis and treatment, no response yet. Current Visit: Yes Status: Chronic Priority: High Code(s): Z85.528 - PERS ONAL HISTORY OF OTHER MALIGNANT NEOPLASM OF KIDNEY SNOMED Code(s): 160787376 Plan: Doctor attests: I performed a history and physical examination of this patient, developed impression and plan of care, discussed with dictator. I agree with dictators note, documented as a scribe.
[2019-10-18] MEDS ORDERED: SODIUM CHLORIDE 0.9% 250 ML with PAMIDRONATE 60 MG IV ONE ×2 (12:00)
[2019-10-18] MEDS: DEXAMETHASONE 4 MG TAB PO SCH (13:43)
[2019-10-18] MEDS: PRAVASTATIN SODIUM 20 MG TAB PO SCH (13:44)
[2019-10-18] MEDS: MORPHINE SULFATE 4 MG/ML SYRINGE IV PRN (13:46)
[2019-10-18] MEDS: FLUTICASONE 50MCG/SPRAY NASAL 16GM EA NOSTRIL SCH (20:13)
--- NOTE | 2019-10-18 21:52 | P.PN ---
Progress Note - Text Progress Note Date: 10/18/19 Chief Complaint: Increasing low back pain History of presenting complaint: This is a pleasant 64-year-old patient of Dr. Pro Serrano. 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 Patient had been doing well. This was done by Dr. Quinteros. From neurology. Patient now has been having progressively low back pain. Some weakness in the legs. No change in bowel or urine pattern. No fever no chills. Pain is becoming progressively worse. Computed tomography scan in the ER showed extensive osteolytic changes of the lumbar spine and the pelvis with widespread osteolytic disease. A significant progression compared to the previous computed tomography scan. No evidence of compression fracture. Admitted for the same. Oncology was consulted. Patient has been tolerating a diet. Denies any obvious weight loss.. Tired Admitted- lytic lesions to multiple bones. Presacral mass. Now suspected to be multiple myeloma. As opposed to metastatic disease. Today-laying in bed. Will be getting radiation. Diagnosis of multiple myeloma. Review of systems: Was done for constitutional, cardiovascular, GI, pulmonary. relevant finding as above Active Medications Acetaminophen (Tylenol Tab) 650 mg PO Q6HR PRN PRN Reason: Fever and/ or Pain Last Admin: 10/17/19 10:51 Dose: 650 mg Documented by: Albuterol Sulfate (Ventolin Nebulized) 2.5 mg INHALATION RT-TID PRN PRN Reason: Shortness Of Breath Last Admin: 10/16/19 20:49 Dose: 2.5 mg Documented by: Amlodipine Besylate (Norvasc) 5 mg PO DAILY [facility] Last Admin: 10/18/19 09:16 Dose: 5 mg Documented by: Dexamethasone (Hexadrol) 40 mg PO DAILY [facility] [place] Stop: 10/21/19 09:01 Last Admin: 10/18/19 13:43 Dose: 40 mg Documented by: Fluticasone Propionate (Flonase Nasal [place]) 1 spray EA NOSTRIL HS [facility] Last Admin: 10/18/19 20:13 Dose: 1 spray Documented by: Furosemide (Lasix) 20 mg PO DAILY [facility] [place] Last Admin: 10/18/19 09:16 Dose: 20 mg Documented by: Gabapentin (Neurontin) 400 mg PO TID [facility] [place] Last Admin: 10/18/19 20:57 Dose: 400 mg Documented by: Sodium Chloride (Saline 0.9%) 1,000 mls @ 130 mls/hr IV .Q7H42M [facility] [place] Last Admin: 10/18/19 15:48 Dose: 130 mls/hr Documented by: Vancomycin HCl 1,750 mg/ (Sodium Chloride) 500 mls @ 167 mls/hr IVPB Q24H [facility] [place] Lisinopril (Zestril) 20 mg PO DAILY [facility] [place] Last Admin: 10/18/19 09:17 Dose: 20 mg Documented by: Metoprolol Succinate (Toprol Xl) 50 mg PO DAILY [facility] [place] Last Admin: 10/18/19 09:16 Dose: 50 mg Documented by: Morphine Sulfate (Morphine Sulfate (Inj)) 4 mg IV Q4HR PRN PRN Reason: Severe Pain Last Admin: 10/18/19 13:46 Dose: 4 mg Documented by: Naloxone HCl (Narcan) 0.2 mg IV Q2M PRN PRN Reason: Opioid Reversal Pravastatin Sodium (Pravachol) 20 mg PO DAILY [facility] [place] Last Admin: 10/18/19 13:44 Dose: 20 mg Documented by: Senna (Senokot) 8.6 mg PO BID [facility] [place] Last Admin: 10/18/19 20:13 Dose: 8.6 mg Documented by: Tramadol HCl (Ultram) 50 mg PO QID [facility] [place] Last Admin: 10/18/19 20:57 Dose: 50 mg Documented by: Physical examination: VITAL SIGNS: 97.8, 73, 17, 132/76, 97% on room air GENERAL:, Sitting up in a chair, awake EYES: Pupils equal. Conjunctiva normal. HEENT: External appearance of nose and ears normal, oral cavity grossly normal. NECK: JVD not raised; masses not palpable. HEART: First and second heart sounds are normal; no edema. LUNGS: Respiratory rate normal; clear to auscultation. ABDOMEN: Soft, nontender, liver spleen not palpable, no masses palpable. PSYCH: Alert and oriented x3; mood and affect normal. NEUROLOGICAL: [Cranial nerves grossly intact; no facial asymmetry, patient able to raise both his legs to about 30 INVESTIGATIONS, reviewed in the clinical context: Potassium 4.4 bun 38 creatinine 1.68 Previous testing White count 10.3 hemoglobin 8.1 platelets 137 potassium 4.2 sodium 132 bun 36 c reatinine 1.83 AST 98 ALT 80 troponin I 0.074 COVID-19 PCR not detected lumbar spine MRI-osteolytic metastasis throughout the thoracic spine-without evidence of compression fracture. Evidence of DJD disease. At multiple levels. Assessment: -New diagnosis of multiple myeloma. -Normocytic anemia-from multiple myeloma -Troponin leak in the setting of renal failure, not in acute coronary syndrome -Acute kidney injury patient's last creatinine was 1.01 in January 2019. Possible ATN. Patient also takes benazepril, Zestril and Lasix at home. -Hyponatremia Decreased salt intake -Hyperlipidemia -Multiple sites of DJD Plan: Patient be getting some radiation treatment. Presacral mass biopsy tomorrow morning. Will get outpatient bone marrow biopsy. Follow -
[2019-10-19] MEDS ORDERED: VANCOMYCIN 1,750 MG in SODIUM CHLORIDE 0.9% 500 ML 500 ML IVPB SCH ×2 (00:45→23:00)
[2019-10-19] MEDS: SODIUM CHLORIDE 0.9% 1,000 ML IV SCH ×3 (09:09→22:58)
[2019-10-19] MEDS: SENNOSIDES 8.6 MG TAB PO SCH ×2 (09:20→20:55)
[2019-10-19] MEDS: traMADol 50 MG TAB PO SCH ×4 (09:20→20:55)
[2019-10-19] MEDS: amLODIPine 5 MG TAB PO SCH (09:22)
[2019-10-19] MEDS: FUROSEMIDE 20 MG TAB PO SCH (09:22)
[2019-10-19] MEDS: METOPROLOL SUCCINATE (ER) 50 MG TAB.ER.24H PO SCH (09:22)
[2019-10-19] MEDS: LISINOPRIL 10 MG TAB PO SCH (09:22)
[2019-10-19] MEDS: PRAVASTATIN SODIUM 20 MG TAB PO SCH (09:22)
[2019-10-19] MEDS: MORPHINE SULFATE 4 MG/ML SYRINGE IV PRN (10:29)
[2019-10-19] MEDS: GABAPENTIN 400 MG CAP PO SCH ×3 (11:31→20:55)
[2019-10-19] MEDS: DEXAMETHASONE 4 MG TAB PO SCH (11:31)
--- NOTE | 2019-10-19 11:42 | P.PN ---
Subjective Progress Note Date: 10/19/19 Principal diagnosis: Back pain, GARY, kappa light chain multiple myeloma In f/u today pt is leaving for presacral mass biopsy. No new c/o, back pain and leg weakness stable Objective - Vital Signs Vital signs: Vital Signs Temp 98.5 F 10/19/19 04:52 Pulse 67 10/19/19 11:18 Resp 16 10/19/19 11:18 BP 126/87 10/19/19 11:18 Pulse Ox 97 10/19/19 11:18 Intake & Output 10/18/19 10/19/19 10/19/19 18:59 06:59 18:59 Intake Total 1080 1830 Output Total 1400 Balance -320 1830 Weight 101.5 kg 103 kg Intake: Intake, IV Titration 1290 Amount Sodium Chloride 0.9% 1, 1040 000 ml @ 130 mls/hr IV . Q7H42M [facility] Rx#:[id number] Sodium Chloride 0.9% 250 250 ml @ 83 mls/hr IV .Q3H1M ONE with Pamidronate 60 mg Rx#:[id number] Oral 1080 540 Output: Urine 1400 Other: Voiding Method Urinal Toilet # Voids 3 1 # Bowel Movements 2 2 - Exam WDWN, generally ill appearing man, sitting in chair, NAD, A&Ox4, respirations are even and unlabored at rest, skin is warm and dry to touch, mild edema in BLE - Labs CBC & Chem 7: 10/17/19 06:43 10/18/19 06:23 Labs: Microbiology - Last 24 Hours (Table) 10/17/19 09:33 Blood Culture Gram Stain - Preliminary Blood Blood Culture - Preliminary Alpha Hemolytic Streptococcus 10/17/19 15:12 Urine Culture - Final Urine,Voided Assessment and Plan (1) Multiple myeloma Narrative/Plan: [place] light chain returned at 471, paraprotein is 7.74 g/dl. Spoke with pt this AM about pt hospital course. Pt has a history of MGUS many years ago. Cont with presacral mass biopsy with IR today, anticoagulation held, resume in AM Bone marrow biopsy [id number] on pt LOS Rad Onc is going to proceed with Radiation to symptomatic presacral mass. Ortho spine has seen pt, recommendations reviewed Pulse dose dexamathasone, 4 on/ 4 off for immediate treatment. Aredia, renal dose adjusted Treatment plan to follow out patient Current Visit: Yes Status: Acute Priority: High Code(s): C90.00 - MULTIPLE MYELOMA NOT HAVING ACHIEVED REMISSION SNOMED Code(s): 436028093 (2) Sacral mass Narrative/Plan: Biopsy with Interventional Radiology. Radiation due to symptoms of the mass Current Visit: Yes Status: Acute Priority: High Code(s): M53.3 - SACROCOCCYGEAL DISORDERS, NOT ELSEWHERE CLASSIFIED SNOMED Code(s): 03352972 (3) Bone metastases Narrative/Plan: Radiation Oncology consult for painful bone mets/scaral mass. Aredia ordered, dose reduced for renal function Current Visit: Yes Status: Acute Priority: High Code(s): C79.51 - SECONDARY MALIGNANT NEOPLASM OF BONE SNOMED Code(s): 59505368 (4) Back pain Narrative/Plan: Secondary to bone mets/scacral mass. Pt on ultram at home, he has had 2 doses of IV morphine since admit. He is raul rgic to hydrocodone. Changed frequency of ultram, no immediate changes in pain Discussed with Nursing Medications for prevention of narcotic induced constipation ordered Current Visit: Yes Status: Acute Priority: High Code(s): M54.9 - DORSALGIA, UNSPECIFIED SNOMED Code(s): 135028049 (5) GARY (acute kidney injury) Narrative/Plan: Hx of renal cancer-type unknown-partial nephrectomy. Myeloma work up positive BUN/Cr improved since admit. Will need myeloma treatment to further improve Current Visit: Yes Status: Acute Priority: High Code(s): N17.9 - ACUTE KIDNEY FAILURE, UNSPECIFIED SNOMED Code(s): 08494686 (6) Anemia Narrative/Plan: Anemia of malignancy/inflammation, all studies low with significantly elevated ferritin. No iron. Hgb stable, no transfusion today. Use irradiated blood products if needed Current Visit: Yes Status: Acute Priority: High Code(s): D64.9 - ANEMIA, UNSPECIFIED SNOMED Code(s): 511790359 (7) History of renal cell carcinoma Narrative/Plan: Treated by Dr. Verdugo at [facility]. Current Visit: Yes Status: Chronic Priority: High Code(s): Z85.528 - PERSONAL HISTORY OF OTHER MALIGNANT NEOPLASM OF KIDNEY SNOMED Code(s): 731025188 Plan: D/W case with IM.
--- NOTE | 2019-10-19 11:46 | CT ---
EXAMINATION TYPE: CT biopsy bone superficial DATE OF EXAM: 10/19/2019 COMPARISON: 10/15/2019 HISTORY: Left sacral mass biopsy CT DLP: 195 mGycm The procedure is discussed with the patient, the risks, complications, benefits and alternatives, wer e discussed and any questions were answered. Informed consent was obtained. The patient is placed p juan on the CT table, prepped and draped in the usual sterile fashion. Utilizing 18-gauge core biopsy needle needle access into the left sacral mass was achieved with 2 lucy ples obtained. Pathology confirmed adequate sample. All elements of maximal barrier and sterile ellie hnique were utilized. The patient remained stable throughout the procedure with no immediate postpro cedural complication. IMPRESSION: 1. Successful CT guided core biopsy left sacral mass
--- NOTE | 2019-10-19 12:08 | P.PN ---
Subjective This is a pleasant 64-year-old male past medical history significant for hypertension, dyslipidemia, cardiomyopathy and renal cell carcinoma. He follows in the office with Dr. Arriaga. He presented to the hospital with symptoms of low back discomfort. 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 Radiation oncology following. Echocardiogram obtained reveals impaired LV systolic function with ejection fraction 30-35%, mild aortic valve sclerosis, mild tricuspid regurgitation and severe pulmonary hypertension with an RVSP of 62 mmHg. This is consistent with previous echocardiogram obtained in the office May 2019. No new wall motion abnormalities noted. Blood pressure 130/80 heart rate 82 afebrile this morning however had a temperature of 100F last evening. Laboratory data reviewed, sodium 139, potassium 4.9, creatinine 1.68. Currently maintained on amlodipine 5 mg daily, Lasix 20 mg daily, Toprol 50 mg daily, lisinopril 20 mg daily and pravastatin 20 mg daily. He is scheduled to undergo a CT biopsy prior to initiating radiation therapy. He is seen and examined sitting up in the chair in no acute distress. He continues to feel discomfort in the lower back. No chest pain, shortness of breath, dizziness or palpitations. 10/19/2019 Pt seen and examined sitting up in the chair in no acute distress. He denies chest pain, shortness of breath, dizziness or palpitations. He underwent CT guided biopsy this morning. Plans for radiation therapy this afternoon and then possible discharge. Blood pressure 136/72 heart rate 62 afebrile and maintaining oxygen saturation on room air. Telemetry tracings indicated bradycardia with PVC's. GENERAL: Well-appearing, well-nourished and in no acute distress. NECK: Supple without JVD or thyromegaly. LUNGS: Breath sounds clear to auscultation bilaterally. Respiration equal and unlabored. No wheezes, rales or rhonchi. HEART: Regular rate and rhythm without murmurs, rubs or gallops. S1 and S2 heard. EXTREMITIES: Normal range of motion, no edema. No clubbing or cyanosis. Peripheral pulses intact. ASSESSMENT Osteolytic malignancy History of renal cell carcinoma status post partial nephrectomy Abnormal troponin neck consistent with acute coronary syndrome likely secondary to abnormal renal function Acute on chronic renal insufficiency Chronic systolic heart failure, clinically euvolemic. Hypertension Dyslipidemia PLAN Decrease toprol to 25 mg daily for bradycardia noted on telemetry tracings. Nurse Practitioner note has been reviewed, I agree with a documented findings and plan of care. Patient was seen and examined. Objective - Vital Signs Vital signs: Vital Signs Temp 97.4 F L 10/19/19 11:45 Pulse 62 10/19/19 11:45 Resp 18 10/19/19 11:45 BP 136/72 10/19/19 11:45 Pulse Ox 97 10/19/19 11:45 Intake & Output 10/18/19 10/19/19 10/19/19 18:59 06:59 18:59 Intake Total 1080 1830 Output Total 1400 Balance -320 1830 Weight 101.5 kg 103 kg Intake: Intake, IV Titration 1290 Amount Sodium Chloride 0.9% 1, 1040 000 ml @ 130 mls/hr IV . Q7H42M [facility] Rx#:[id number] Sodium Chloride 0.9% 250 250 ml @ 83 mls/hr IV .Q3H1M ONE with Pamidronate 60 mg Rx#:[id number] Oral 1080 540 Output: Urine 1400 Other: Voiding Method Urinal Toilet # Voids 3 1 # Bowel Movements 2 2 - Labs CBC & Chem 7: 10/17/19 06:43 10/18/19 06:23 Labs: Microbiology - Last 24 Hours (Table) 10/17/19 09:33 Blood Culture Gram Stain - Preliminary Blood Blood Culture - Preliminary Alpha Hemolytic Streptococcus 10/17/19 15:12 Urine Culture - Final Urine,Voided
[2019-10-19] MEDS ORDERED: VANCOMYCIN IV PER PHARMACY 1 EACH MISC MISCELLANE PRN (14:24)
[2019-10-19] MEDS: FLUTICASONE 50MCG/SPRAY NASAL 16GM EA NOSTRIL SCH (20:55)
--- NOTE | 2019-10-19 22:06 | P.CONS ---
History of Present Illness - Reason for Consult Consult date: 10/19/19 Bacteremia Requesting physician: Nikhil Bishop - Chief Complaint left sided back pain x 1 month - History of Present Illness Patient is a 64-year male with a past medical he significant for right-sided renal cell carcinoma and this patient was status post partial nephrectomy in 2017 at [facility] patient seem to be following with them as an outpatient and recently did have imaging come back and March 2019 we did shows a new L2 endplate lesion which was thought to be more likely degenerative patient started having pain in the left side low back area about a month ago without any history of any trauma patient pain can be to get worse and the last 3 days before presentation to the hospital the patient got worse to the point he was having difficulty getting up and around patient described the pain to be more of a dull aching almost 78 different has some radiation to the left leg apparently did have some loss of urinary control with the symptom had the patient presented to [facility] on arrival to the ER the patient was afebrile subsequently on October 15 the patient did have low-grade 100.4 afterwards on the October 16 he did have a fever of 101.7 F for which patient did have blood cultures drawn on that day which are coming back positive alphahemolytic Streptococcus UA and culture has been negative patient received a dose of vancomycin by his PCP infectious disease was consulted for further management of his antibiotic therapy had bacteremia during this admission initially the patient did have a lumbar spine CT which did shows extensive osteolytic changes in the lumbar spine and visualized pelvis consistent widespread metastatic d isease and there was a lytic lesion in the sacrum on the left side measuring 3.56 0.5 cm patient did have a CT of the chest did not show any pulmonary lesion however extensive osteolytic metastatic disease in the bony thorax confirmed the finding on MRI of the thoracal lumbar spine patient did have a bone biopsy done by direct radiologist morning with the patient has tolerated. Review of Systems Positive point has been mentioned in HPI rest of the systems are negative Past Medical History Past Medical History: Hypertension Additional Past Medical History / Comment(s): back pain, partial nephrectomy, bilat knee replacement, R sided kidney ca History of Any Multi-Drug Resistant Organisms: None Reported Past Surgical History: Joint Replacement, Orthopedic Surgery Additional Past Surgical History / Comment(s): carpel tunnel, cataract Past Psychological History: No Psychological Hx Reported Smoking Status: Never smoker Past Alcohol Use History: None Reported Past Drug Use History: None Reported Medications and Allergies Home Medications Medication Instructions Recorded Confirmed Type Albuterol Nebulized [Ventolin 2.5 mg INHALATION RT-TID PRN 10/16/19 10/16/19 History Nebulized] Fluticasone Nasal [place] [Flonase 1 spray EA NOSTRIL HS 10/16/19 10/16/19 History Nasal [place]] Furosemide [Lasix] 20 mg PO DAILY 10/16/19 10/16/19 History Gabapentin [Neurontin] 400 mg PO TID 10/16/19 10/16/19 History Pravastatin Sodium [Pravachol] 20 mg PO DAILY 10/16/19 10/16/19 History traMADol HCL 50 mg PO BID 10/16/19 10/16/19 History amLODIPine BESYLATE/BENAZEPRIL 1 cap PO DAILY #90 cap 10/18/19 Rx [Lotrel 10-20 MG] Dexamethasone 40 mg PO DAILY #60 tablet 10/19/19 Rx Metoprolol Succinate (ER) [Toprol 25 mg PO DAILY #90 tab.er.24h 10/19/19 Rx XL] Pantoprazole [Protonix] 40 mg PO BID #60 tablet. 10/19/19 Rx Allergies Allergy/AdvReac Type Severity Reaction Status Date / Time hydrocodone [From [place]] Allergy Unknown Verified 10/16/19 15:18 Physical Exam Vitals: Vital Signs Temp Pulse Pulse Resp BP BP Pulse Ox 10/19/19 21:33 97.4 F L 69 18 139/75 96 10/19/19 15:27 62 18 10/19/19 13:30 53 L 18 127/70 96 10/19/19 13:00 66 18 121/75 99 10/19/19 12:30 69 18 129/69 98 10/19/19 12:15 76 18 130/77 98 10/19/19 12:00 73 18 133/74 98 10/19/19 11:45 97.4 F L 62 18 136/72 97 10/19/19 11:18 67 16 126/87 97 10/19/19 11:11 80 16 139/83 96 10/19/19 11:09 74 18 138/81 96 10/19/19 11:06 86 18 136/80 95 10/19/19 11:01 80 18 141/93 98 10/19/19 10:50 79 18 143/78 100 10/19/19 08:00 68 18 10/19/19 04:52 98.5 F 62 18 124/72 98 Intake and Output 10/19/19 10/19/19 10/19/19 06:59 14:59 22:59 Intake Total 1040 1810 1080 Output Total 700 Balance 1040 1810 380 Intake: Intake, IV Titration 1040 1090 Amount Sodium Chloride 0.9% 1, 1040 1040 000 ml @ 130 mls/hr IV . Q7H42M [facility] Rx#:[id number] cefTRIAXone 2 gm In 50 Sodium Chloride 0.9% 50 ml @ 100 mls/hr IVPB Q24H [facility] Rx#:[id number] Oral 720 1080 Output: Urine 700 Other: Voiding Method Toilet Toilet Toilet # Voids 6 6 # Bowel Movements 2 2 Weight 103 kg GENERAL DESCRIPTION: Elderly male up in the chair, no distress. No tachypnea or accessory muscle of respiration use. HEENT: Shows Pallor , no scleral icterus. Oral mucous membrane is dry. NECK: Trachea central, no thyromegaly. LUNGS: Unlabored breathing. Clear to auscultation. No wheeze or crackle. HEART: S1, S2, regular rate and rhythm. ABDOMEN: Soft, no tenderness , guarding or rigidity EXTREMITIES: No edema of feet. SKIN: No rash, no masses palpable. NEUROLOGICAL: The patient is awake, alert, oriented x3, mood and affect normal. Results CBC & Chem 7: 10/17/19 06:43 10/18/19 06:23 Labs: Microbiology - Last 24 Hours (Table) 10/17/19 09:33 Blood Culture Gram Stain - Final Blood Blood Culture - Final Alpha Hemolytic Streptococcus 10/17/19 15:12 Urine Culture - Final Urine,Voided Assessment and Plan Assessment: patient with an episode of fever on October 17, 2019 of 101 F this patient who did have blood cultures drawn that day coming back positive alphahemolytic Streptococcus final ID sensitivities pending patient predominantly admitted to hospital with low back pain in this patient now with evidence of extensive osteolytic lesion of his thoracolumbar spine as well as the sacrum and a previous history of renal cell carcinoma, it is very unlikely all these osteolytic lesions are related to an infectious etiology unfortunately the patient did have a biopsy of 1 of those lesions done today and the patient may have benefited from a culture at the same time which was not done, patient currently with no respiratory symptoms CT of the chest was negative abdominal soft rectal examination and no evidence of any cellulitis and UA has been negative echocardiogram did not show any evidence of vegetation but the patient does give a history of dental cleaning about 2 months ago. (1) Gram-positive bacteremia Current Visit: Yes Status: Acute Code(s): R78.81 - BACTEREMIA SNOMED Code(s): 591250992928 (2) Fever Current Visit: Yes Status: Acute Code(s): R50.9 - FEVER, UNSPECIFIED SNOMED Code(s): 631983016 Plan: 1-we will repeat blood cultures to document clearance of bacteremia 2-await the ID sensitivity of this pathogen 3-we will empirically add Rocephin 2 g daily and vancomycin pharmacy to dose 4-we will also check a CRP and a sed rate We will follow on clinical condition and cultures to further adjust medication i f needed Thank you for this consultation we will follow the patient along with you Time with Patient: Greater than 30
[2019-10-20] MEDS: PRAVASTATIN SODIUM 20 MG TAB PO SCH (08:04)
[2019-10-20] MEDS: FUROSEMIDE 20 MG TAB PO SCH (08:04)
[2019-10-20] MEDS: amLODIPine 5 MG TAB PO SCH (08:05)
[2019-10-20] MEDS: LISINOPRIL 10 MG TAB PO SCH (08:05)
[2019-10-20] MEDS: METOPROLOL SUCCINATE (ER) 25 MG TAB.ER.24H PO SCH (08:05)
[2019-10-20] MEDS: GABAPENTIN 400 MG CAP PO SCH ×3 (08:05→21:32)
[2019-10-20] MEDS: DEXAMETHASONE 4 MG TAB PO SCH (08:05)
[2019-10-20] MEDS: traMADol 50 MG TAB PO SCH ×4 (08:06→21:32)
[2019-10-20] MEDS: SENNOSIDES 8.6 MG TAB PO SCH ×2 (08:10→21:32)
[2019-10-20] MEDS: SODIUM CHLORIDE 0.9% 1,000 ML IV SCH ×2 (08:46→18:14)
--- NOTE | 2019-10-20 09:19 | P.PN ---
Progress Note - Text Progress Note Date: 10/19/19 Chief Complaint: Increasing low back pain History of presenting complaint: This is a pleasant 64-year-old patient of Dr. Pro Serrano. 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 Patient had been doing well. This was done by Dr. Quinteros. From neurology. Patient now has been having progressively low back pain. Some weakness in the legs. No change in bowel or urine pattern. No fever no chills. Pain is becoming progressively worse. Computed tomography scan in the ER showed extensive osteolytic changes of the lumbar spine and the pelvis with widespread osteolytic disease. A significant progression compared to the previous computed tomography scan. No evidence of compression fracture. Admitted for the same. Oncology was consulted. Patient has been tolerating a diet. Denies any obvious weight loss.. Tired Admitted- lytic lesions to multiple bones. Presacral mass. Now suspected to be multiple myeloma. As opposed to metastatic disease. Today-sitting up in a chair. Awaiting presacral mass biopsy. We will then go down for radiation treatment. Blood cultures are positive. Started on vancomycin. Review of systems: Was done for constitutional, cardiovascular, GI, pulmonary. relevant finding as above Current medications reviewed in today's electronic records Physical examination: VITAL SIGNS: 97.4, 62, 18, 136/72, 97% on room air GENERAL:, Sitting up in a chair, awake EYES: Pupils equal. Conjunctiva normal. HEENT: External appearance of nose and ears normal, oral cavity grossly normal. NECK: JVD not raised; masses not palpable. HEART: First and second heart sounds are normal; no edema. LUNGS: Respiratory rate normal; clear to auscultation. ABDOMEN: Soft, nontender, liver spleen not palpable, no masses palpable. PSYCH: Alert and oriented x3; mood and affect normal. INVESTIGATIONS, reviewed in the clinical context: Blood cultures from October 16-alpha hemolytic streptococcus. Previous testing White count 10.3 hemoglobin 8.1 platelets 137 potassium 4.2 sodium 132 bun 36 creatinine 1.83 AST 98 ALT 80 troponin I 0.074 COVID-19 PCR not detected lumbar spine MRI-osteolytic metastasis throughout the thoracic spine-without evidence of compression fracture. Evidence of DJD disease. At multiple levels. Assessment: -New diagnosis of multiple myeloma. -Normocytic anemia-from multiple myeloma -Troponin leak in the setting of renal failure, not in acute coronary syndrome -Acute kidney injury patient's last creatinine was 1.01 in January 2019. Possible ATN. Patient also takes benazepril, Zestril and Lasix at home. -Hyponatremia Decreased salt intake -Hyperlipidemia -Multiple sites of DJD -Positive blood cultures alpha hemolytic streptococcus in the setting of immunosuppression. Plan: Discussed with Dr. Pro Rubio from radiation oncology and Galilea Garcia NP from oncology. Patient is to get his biopsy done today. Radiation treatment. Vancomycin was started. ID is consulted. Discussed with the patient. Total time spent today was about 40 minutes with over 25 minutes of discussion. -
[2019-10-20 10:18] LABS: Anisocytosis Slight; Basophils % (A) 0 %; Eosinophils % (A) 0 %; HCT 24.2 % (39.0-53.0); HGB 7.6 gm/dL (13.0-17.5); Hypochromasia Marked; Lymphocytes # (A) 0.2 k/uL (1.0-4.8); Lymphocytes % (A) 5 %; MCH 31.4 pg (25.0-35.0); MCHC 31.3 g/dL (31.0-37.0); MCV 100.4 fL (80.0-100.0); Macrocytosis Slight; Mean Platelet Volume 11.8; Monocytes # (A) 0.2 k/uL (0-1.0); Monocytes % (A) 4 %; Neutrophils % (A) 89 %; Platelet Count 123 k/uL (150-450); RBC 2.41 m/uL (4.30-5.90); WBC 4.4 k/uL (3.8-10.6)
--- NOTE | 2019-10-20 10:34 | P.PN ---
Subjective This is a pleasant 64-year-old male past medical history significant for hypertension, dyslipidemia, cardiomyopathy and renal cell carcinoma. He follows in the office with Dr. Arriaga. He presented to the hospital with symptoms of low back discomfort. 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 Radiation oncology following. Echocardiogram obtained reveals impaired LV systolic function with ejection fraction 30-35%, mild aortic valve sclerosis, mild tricuspid regurgitation and severe pulmonary hypertension with an RVSP of 62 mmHg. This is consistent with previous echocardiogram obtained in the office May 2019. No new wall motion abnormalities noted. Blood pressure 130/80 heart rate 82 afebrile this morning however had a temperature of 100F last evening. Laboratory data reviewed, sodium 139, potassium 4.9, creatinine 1.68. Currently maintained on amlodipine 5 mg daily, Lasix 20 mg daily, Toprol 50 mg daily, lisinopril 20 mg daily and pravastatin 20 mg daily. He is scheduled to undergo a CT biopsy prior to initiating radiation therapy. He is seen and examined sitting up in the chair in no acute distress. He continues to feel discomfort in the lower back. No chest pain, shortness of breath, dizziness or palpitations. 10/19/2019 Pt seen and examined sitting up in the chair in no acute distress. He denies chest pain, shortness of breath, dizziness or palpitations. He underwent CT guided biopsy this morning. Plans for radiation therapy this afternoon and then possible discharge. Blood pressure 136/72 heart rate 62 afebrile and maintaining oxygen saturation on room air. Telemetry tracings indicated bradycardia with PVC's. 10/20/2019 Patient was seen and examined sitting up in the chair. He continues to complain of low back discomfort however states that it did improve after radiation thera py yesterday. He has generalized pallor. Denies chest pain, shortness of breath, dizziness or palpitations. Blood pressure 125/80 heart rate 59 afebrile maintaining oxygen saturation on room air. Laboratory data reviewed, WBC 4.4, hemoglobin 7.6, platelets 123, creatinine 1.55 with a GFR 46. Currently maintained on amlodipine 5 mg daily, Lasix 20 mg by mouth daily, lisinopril 20 mg daily, Toprol 25 mg daily and pravastatin 20 mg daily. GENERAL: Well-appearing, well-nourished and in no acute distress. NECK: Supple without JVD or thyromegaly. LUNGS: Breath sounds clear to auscultation bilaterally. Respiration equal and unlabored. No wheezes, rales or rhonchi. HEART: Regular rate and rhythm without murmurs, rubs or gallops. S1 and S2 heard. EXTREMITIES: Normal range of motion, no edema. No clubbing or cyanosis. Peripheral pulses intact. ASSESSMENT Osteolytic malignancy History of renal cell carcinoma status post partial nephrectomy Abnormal troponin neck consistent with acute coronary syndrome likely secondary to abnormal renal function Acute on chronic renal insufficiency Anemia Chronic systolic heart failure, clinically euvolemic. Hypertension Dyslipidemia PLAN Continue current medical regimen. Stable from a cardiac perspective. We will continue to follow as needed. Nurse Practitioner note has been reviewed, I agree with a documented findings and plan of care. Patient was seen and examined. Objective - Vital Signs Vital signs: Vital Signs Temp 97.5 F L 10/20/19 05:00 Pulse 59 L 10/20/19 05:00 Resp 17 10/20/19 05:00 BP 125/80 10/20/19 05:00 Pulse Ox 97 10/20/19 05:00 Intake & Output 10/19/19 10/20/19 10/20/19 18:59 06:59 18:59 Intake Total 2890 1540 360 Output Total 700 Balance 2190 1540 360 Weight 103 kg 138 kg 104.3 kg Intake: Intake, IV Titration 1090 1540 Amount Sodium Chloride 0.9% 1, 1040 1040 000 ml @ 130 mls/hr IV . Q7H42M [facility] Rx#:[id number] Vancomycin 1,750 mg In 500 Sodium Chloride 0.9% 500 ml 500 ml @ 167 mls/hr IVPB Q24H [facility] Rx#: [id number] cefTRIAXone 2 gm In 50 Sodium Chloride 0.9% 50 ml @ 100 mls/hr IVPB Q24H [facility] Rx#:[id number] Oral 1800 360 Output: Urine 700 Other: Voiding Method Toilet Toilet # Voids 6 # Bowel Movements 2 - Labs CBC & Chem 7: 10/20/19 06:05 10/20/19 06:05 Labs: Abnormal Lab Results - Last 24 Hours (Table) 10/20/19 10/20/19 10/20/19 Range/Units 06:05 06:05 06:05 RBC (4.30-5.90) m/uL Hgb (13.0-17.5) gm/dL Hct (39.0-53.0) % MCV (80.0-100.0) fL RDW (11.5-15.5) % Plt Count (150-450) k/uL Lymphocytes # (1.0-4.8) k/uL ESR >140 H (0-15) mm/hr Creatinine 1.55 H (0.66-1.25) mg/dL C-Reactive Protein 31.5 H (<10.0) mg/L 10/20/19 Range/Units 06:05 RBC 2.41 L (4.30-5.90) m/uL Hgb 7.6 L (13.0-17.5) gm/dL Hct 24.2 L (39.0-53.0) % MCV 100.4 H (80.0-100.0) fL RDW 17.0 H (11.5-15.5) % Plt Count 123 L (150-450) k/uL Lymphocytes # 0.2 L (1.0-4.8) k/uL ESR (0-15) mm/hr Creatinine (0.66-1.25) mg/dL C-Reactive Protein (<10.0) mg/L Microbiology - Last 24 Hours (Table) 10/17/19 09:33 Blood Culture Gram Stain - Final Blood Blood Culture - Final Alpha Hemolytic Streptococcus
--- NOTE | 2019-10-20 10:42 | P.PN ---
Subjective Progress Note Date: 10/20/19 Principal diagnosis: Back pain, GARY, [place]appa light chain multiple myeloma In f/u today pt doing well post biopsy, he did get a dose of radiation to the presacral mass. Back pain is managed on current pain meds, leg weakness stable, maybe a little better, no incontinence of urine, he does know when he has to go, there is more urgency as the day goes on, energy is better in the morning then the afternoon, he is ambulating with walker. Objective - Vital Signs Vital signs: Vital Signs Temp 97.5 F L 10/20/19 05:00 Pulse 59 L 10/20/19 05:00 Resp 17 10/20/19 05:00 BP 125/80 10/20/19 05:00 Pulse Ox 97 10/20/19 05:00 Intake & Output 10/19/19 10/20/19 10/20/19 18:59 06:59 18:59 Intake Total 2890 1540 360 Output Total 700 Balance 2190 1540 360 Weight 103 kg 138 kg 104.3 kg Intake: Intake, IV Titration 1090 1540 Amount Sodium Chloride 0.9% 1, 1040 1040 000 ml @ 130 mls/hr IV . Q7H42M [facility]ILL[facility] Rx#:[id number] Vancomycin 1,750 mg In 500 Sodium Chloride 0.9% 500 ml 500 ml @ 167 mls/hr IVPB Q24H [facility] Rx#: [id number] cefTRIAXone 2 gm In 50 Sodium Chloride 0.9% 50 ml @ 100 mls/hr IVPB Q24H [facility]ILL[facility] Rx#:[id number] Oral 1800 360 Output: Urine 700 Other: Voiding Method Toilet Toilet # Voids 6 # Bowel Movements 2 - Constitutional General appearance: Present: average body habitus, cooperative, no acute distress - EENT Eyes: Present: anicteric sclerae, EOMI ENT: Present: hearing grossly normal - Respiratory Respiratory: bilateral: CTA - Cardiovascular Heart sounds: normal: S1, S2 - Peripheral edema leg Peripheral Edema: bilateral: Trace - Gastrointestinal General gastrointestinal: Present: soft - Neurologic Neurologic: Present: CNII-XII intact - Musculoskeletal Musculoskeletal: Present: generalized weakness - Psychiatric Psychiatric: Present: A&O x's 3, appropriate affect, intact judgment & insight - Labs CBC & Chem 7: 10/20/19 06:05 10/20/19 06:05 Labs: Abnormal Lab Results - Last 24 Hours (Table) 10/20/19 10/20/19 10/20/19 Range/Units 06:05 06:05 06:05 RBC (4.30-5.90) m/uL Hgb (13.0-17.5) gm/dL Hct (39.0-53.0) % MCV (80.0-100.0) fL RDW (11.5-15.5) % Plt Count (150-450) k/uL Lymphocytes # (1.0-4.8) k/uL ESR >140 H (0-15) mm/hr Creatinine 1.55 H (0.66-1.25) mg/dL C-Reactive Protein 31.5 H (<10.0) mg/L 10/20/19 Range/Units 06:05 RBC 2.41 L (4.30-5.90) m/uL Hgb 7.6 L (13.0-17.5) gm/dL Hct 24.2 L (39.0-53.0) % MCV 100.4 H (80.0-100.0) fL RDW 17.0 H (11.5-15.5) % Plt Count 123 L (150-450) k/uL Lymphocytes # 0.2 L (1.0-4.8) k/uL ESR (0-15) mm/hr Creatinine (0.66-1.25) mg/dL C-Reactive Protein (<10.0) mg/L Microbiology - Last 24 Hours (Table) 10/17/19 09:33 Blood Culture Gram Stain - Final Blood Blood Culture - Final Alpha Hemolytic Streptococcus Assessment and Plan (1) Multiple myeloma Narrative/Plan: [place] light chain returned at 471, paraprotein is 7.74 g/dl. Pt has a history of MGUS many years ago. Presacral mass biopsy pending, anticoagulation resume Requesting FISH on biopsy-if MM/plasmacytoma. If FISH able to be done Bone marrow biopsy will not need to be done Rad Onc delivered 1st radiation to symptomatic presacral mass /. Ortho spine has seen pt, recommendations reviewed Pulse dose dexamathasone, 4 on/ 4 off for immediate treatment started. Aredia, renal dose adjusted given Treatment plan to follow out patient Current Visit: Yes Status: Acute Priority: High Code(s): C90.00 - MULTIPLE MYELOMA NOT HAVING ACHIEVED REMISSION SNOMED Code(s): 160265121 (2) Sacral mass Narrative/Plan: Biopsy with Interventional Radiology, pending path. If + for myeloma/plasmacytoma, FISH studies requested. Radiation due to symptoms of the mass Current Visit: Yes Status: Acute Priority: High Code(s): M53.3 - SACROCOC CYGEAL DISORDERS, NOT ELSEWHERE CLASSIFIED SNOMED Code(s): 49434769 (3) Bone metastases Narrative/Plan: Radiation Oncology consult for painful bone mets/scaral mass. Aredia given, dose reduced for renal function Current Visit: Yes Status: Acute Priority: High Code(s): C79.51 - SECONDARY MALIGNANT NEOPLASM OF BONE SNOMED Code(s): 40498520 (4) Back pain Narrative/Plan: Secondary to bone mets/scacral mass. Pt on ultram at home, he has had 2 doses of IV morphine since admit. He is allergic to hydrocodone. Changed frequency of ultram, pt reports decent pain control. Will ensure pt has Rx with frequency adjustment Medications for prevention of narcotic induced constipation ordered Current Visit: Yes Status: Acute Priority: High Code(s): M54.9 - DORSALGIA, UNSPECIFIED SNOMED Code(s): 477398673 (5) GARY (acute kidney injury) Narrative/Plan: Hx of renal cancer-type unknown-partial nephrectomy. Myeloma work up positive BUN/Cr improved since admit, cont to improve today. Will need myeloma treatment to further improve Current Visit: Yes Status: Acute Priority: High Code(s): N17.9 - ACUTE KIDNEY FAILURE, UNSPECIFIED SNOMED Code(s): 75617888 (6) Anemia Narrative/Plan: Anemia of malignancy/inflammation, all studies low with significantly elevated ferritin. No iron. Hgb stable, no transfusion today. Use irradiated blood products if needed Current Visit: Yes Status: Acute Priority: High Code(s): D64.9 - ANEMIA, UNSPECIFIED SNOMED Code(s): 545900566 (7) History of renal cell carcinoma Narrative/Plan: Treated by Dr. Verdugo at [facility]. Current Visit: Yes Status: Chronic Priority: High Code(s): Z85.528 - PERSONAL HISTORY OF OTHER MALIGNANT NEOPLASM OF KIDNEY SNOMED Code(s): 41 1188738 Plan: Discussed with Pathologist who will send tissue for FISH on biopsy Doctor attests: I performed a history and physical examination of this patient, developed impression and plan of care, discussed with dictator. I agree with dictators note, documented as a scribe
[2019-10-20] MEDS: ENOXAPARIN 40 MG/0.4 ML SYRINGE SQ SCH (10:44)
--- NOTE | 2019-10-20 18:11 | PN ---
PROGRESS NOTE DATE OF SERVICE: 10/20/2019 REASON FOR FOLLOWUP: Bacteremia. INTERVAL HISTORY: The patient is currently afebrile. The patient has been breathing comfortably. The back pain has slightly improved. No chest pain or cough. No abdominal pain or diarrhea. PHYSICAL EXAMINATION: Blood pressure 132/77, pulse of 68, temperature 97.5. He is 99% on room air. General description is an elderly male up in the chair in no distress. RESPIRATORY SYSTEM: Unlabored breathing. Clear to auscultation anteriorly. HEART: S1, S2. Regular rate and rhythm. ABDOMEN: Soft. No tenderness. LABS: Hemoglobin 7.6, white count 4.4, creatinine 1.55. Blood culture with alpha hemolytic Streptococcus, sensitive to ceftriaxone. Blood culture repeat so far pending. DIAGNOSTIC IMPRESSION AND PLAN: Patient with alpha hemolytic Streptococcus bacteremia in this patient admitted to hospital with low back pain, noted to have significant osteolytic lesion in his spine and sacrum area that has been biopsied. Will wait for the biopsy to finalize. Keep the patient on Rocephin 2 grams daily, though discontinue vancomycin and monitor his clinical course closely. MMODL / IJN: [id number] /
--- NOTE | 2019-10-20 18:58 | P.PN ---
Progress Note - Text Progress Note Date: 10/20/19 Chief Complaint: Increasing low back pain History of presenting complaint: This is a pleasant 64-year-old patient of Dr. Pro Serrano. 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 Patient had been doing well. This was done by Dr. Quinteros. From neurology. Patient now has been having progressively low back pain. Some weakness in the legs. No change in bowel or urine pattern. No fever no chills. Pain is becoming progressively worse. Computed tomography scan in the ER showed extensive osteolytic changes of the lumbar spine and the pelvis with widespread osteolytic disease. A significant progression compared to the previous computed tomography scan. No evidence of compression fracture. Admitted for the same. Oncology was consulted. Patient has been tolerating a diet. Denies any obvious weight loss.. Tired Admitted- lytic lesions to multiple bones. Presacral mass. Now suspected to be multiple myeloma. As opposed to metastatic disease. Sacral mass biopsy was done on October 18. Palliative radiation treatment was started on October 18. Blood cultures came back positive for alphahemolytic streptococcus. Started on vancomycin. Today-sitting up. No fever. Getting IV antibiotic. Repeat blood culture was sent off yesterday. Did tolerate her diet. Review of systems: Was done for constitutional, cardiovascular, GI, pulmonary. relevant finding as above Active Medications Acetaminophen (Tylenol Tab) 650 mg PO Q6HR PRN PRN Reason: Fever and/ or Pain Last Admin: 10/17/19 10:51 Dose: 650 mg Documented by: Albuterol Sulfate (Ventolin Nebulized) 2.5 mg INHALATION RT-TID PRN PRN Reason: Shortness Of Breath Last Admin: 10/16/19 20:49 Dose: 2.5 mg Documented by: Amlodipine Besylate (Norvasc) 5 mg PO DAILY [facility] Last Admin: 10/20/19 08:05 Dose: 5 mg Documented by: Dexamethasone (Hexadrol) 40 mg PO DAILY [facility] Stop: 10/21/19 09:01 Last Admin: 10/20/19 08:05 Dose: 40 mg Documented by: Enoxaparin Sodium (Lovenox) 40 mg SQ DAILY [facility] Last Admin: 10/20/19 10:44 Dose: 40 mg Documented by: Fluticasone Propionate (Flonase Nasal [place]) 1 spray EA NOSTRIL [facility] Last Admin: 10/19/19 20:55 Dose: 1 spray Documented by: Furosemide (Lasix) 20 mg PO DAILY [facility] Last Admin: 10/20/19 08:04 Dose: 20 mg Documented by: Gabapentin (Neurontin) 400 mg PO TID [facility] Last Admin: 10/20/19 16:24 Dose: 400 mg Documented by: Sodium Chloride (Saline 0.9%) 1,000 mls @ 130 mls/hr IV .Q7H42M [facility] Last Admin: 10/20/19 18:14 Dose: 130 mls/hr Documented by: Ceftriaxone Sodium 2 gm/ (Sodium Chloride) 50 mls @ 100 mls/hr IVPB Q24H [facility] Last Admin: 10/20/19 16:24 Dose: 100 mls/hr Documented by: Lisinopril (Zestril) 20 mg PO DAILY [facility] Last Admin: 10/20/19 08:05 Dose: 20 mg Documented by: Metoprolol Succinate (Toprol Xl) 25 mg PO DAILY [facility] Last Admin: 10/20/19 08:05 Dose: 25 mg Documented by: Morphine Sulfate (Morphine Sulfate (Inj)) 4 mg IV Q4HR PRN PRN Reason: Severe Pain Last Admin: 10/19/19 10:29 Dose: 4 mg Documented by: Naloxone HCl (Narcan) 0.2 mg IV Q2M PRN PRN Reason: Opioid Reversal Pravastatin Sodium (Pravachol) 20 mg PO DAILY [facility] Last Admin: 10/20/19 08:04 Dose: 20 mg Documented by: Senna (Senokot) 8.6 mg PO BID [facility] Last Admin: 10/20/19 08:10 Dose: 8.6 mg Documented by: Tramadol HCl (Ultram) 50 mg PO QID [facility] Last Admin: 10/20/19 18:15 Dose: 50 mg Documented by: Physical examination: VITAL SIGNS: 97.5, 59, 17, 125/80, 97% on room air GENERAL:, Sitting up in a chair, awake EYES: Pupils equal. Conjunctiva normal. HEENT: External appearance of nose and ears normal, oral cavity grossly normal. NECK: JVD not raised; masses not palpable. HEART: First and second heart sounds are normal; no edema. LUNGS: Respiratory rate normal; clear to auscultation. ABDOMEN: Soft, nontender, liver spleen not palpable, no masses palpable. PSYCH: Alert and oriented x3; mood and affect normal. INVESTIGATIONS, reviewed in the clinical context: White count 4.4 hemoglobin 7.6 platelets 123 creatinine 1.55 Blood cultures from October 16-alpha hemolytic streptococcus. Previous testing White count 10.3 hemoglobin 8.1 platelets 137 potassium 4.2 sodium 132 bun 36 creatinine 1.83 AST 98 ALT 80 troponin I 0.074 COVID-19 PCR not detected lumbar spine MRI-osteolytic metastasis throughout the thoracic spine-without evidence of compression fracture. Evidence of DJD disease. At multiple levels. Assessment: -New diagnosis of multiple myeloma., POA -Normocytic anemia-from multiple myeloma -Troponin leak in the setting of renal failure, not in acute coronary syndrome -Acute kidney injury patient's last creatinine was 1.01 in January 2019. Possible ATN. Patient also takes benazepril, Zestril and Lasix at home. -Hyponatremia Decreased salt intake-corrected -Hyperlipidemia -Multiple sites of DJD -Positive blood cultures alpha hemolytic streptococcus in the setting of immunosuppression., POA Plan: Antibiotic switched to IV ceftriaxone. Other medications to continue. Discussed with the patient. Cut back on IV fluids. Repeat blood cultures ordered yesterday.
[2019-10-20] MEDS: FLUTICASONE 50MCG/SPRAY NASAL 16GM EA NOSTRIL SCH (21:32)
[2019-10-20] MEDS ORDERED: VANCOMYCIN TROUGH DUE 1 EACH MISC MISCELLANE ONE (22:00)
[2019-10-21 06:30] LABS: Calcium 7.8 mg/dL (8.4-10.2); Potassium 4.1 mmol/L (3.5-5.1)
[2019-10-21] MEDS: traMADol 50 MG TAB PO SCH ×3 (08:14→16:13)
[2019-10-21] MEDS: LISINOPRIL 10 MG TAB PO SCH (08:14)
[2019-10-21] MEDS: FUROSEMIDE 20 MG TAB PO SCH (08:14)
[2019-10-21] MEDS: SENNOSIDES 8.6 MG TAB PO SCH (08:14)
[2019-10-21] MEDS: PRAVASTATIN SODIUM 20 MG TAB PO SCH (08:14)
[2019-10-21] MEDS: METOPROLOL SUCCINATE (ER) 25 MG TAB.ER.24H PO SCH (08:15)
[2019-10-21] MEDS: DEXAMETHASONE 4 MG TAB PO SCH (08:15)
[2019-10-21] MEDS: ENOXAPARIN 40 MG/0.4 ML SYRINGE SQ SCH (08:15)
[2019-10-21] MEDS: amLODIPine 5 MG TAB PO SCH (08:15)
[2019-10-21] MEDS: GABAPENTIN 400 MG CAP PO SCH ×2 (08:15→16:13)
[2019-10-21 11:29] LABS: Anisocytosis Slight; Basophils % (A) 0 %; Eosinophils % (A) 1 %; HCT 24.3 % (39.0-53.0); HGB 7.6 gm/dL (13.0-17.5); Hypochromasia Marked; Lymphocytes # (A) 0.3 k/uL (1.0-4.8); Lymphocytes % (A) 6 %; MCH 32.1 pg (25.0-35.0); MCHC 31.3 g/dL (31.0-37.0); MCV 102.6 fL (80.0-100.0); Macrocytosis Moderate; Mean Platelet Volume 12.1; Monocytes # (A) 0.2 k/uL (0-1.0); Monocytes % (A) 4 %; Neutrophils # (A) 3.5 k/uL (1.3-7.7); Neutrophils % (A) 88 %; Platelet Count 143 k/uL (150-450); RBC 2.36 m/uL (4.30-5.90); RDW 16.9 % (11.5-15.5); WBC 3.9 k/uL (3.8-10.6)
[2019-10-21 11:31] VITALS: BMI 33.0
[2019-10-21 11:37] VITALS: BP 138/73; PULSE 80; RESP 18; TEMP 97.4
[2019-10-21 11:49] LABS: Albumin 2.9 g/dL (3.5-5.0); Bilirubin, Delta 0.1 mg/dL (0.0-0.2); Bilirubin,Unconjugated 0.3 mg/dL (0.0-1.1); Total Bilirubin 0.4 mg/dL (0.2-1.3)
[2019-10-21 11:56] LABS: Total Protein 12.2 g/dL (6.3-8.2)
[2019-10-21 12:06] LABS: Large Platelets Present; Rouleaux Present
[2019-10-21 12:07] LABS: Poikilocytosis (M) Present
--- NOTE | 2019-10-21 14:31 | PN ---
PROGRESS NOTE DATE OF SERVICE: 10/21/2019 REASON FOR FOLLOWUP: Alpha hemolytic strep bacteremia. INTERVAL HISTORY: The patient is currently afebrile. Patient has been breathing comfortably. Has been complaining of some pain to his left lower back area. No chest pain, shortness of breath or cough. No abdominal pain, no diarrhea. PHYSICAL EXAMINATION: Blood pressure 130/73 with a pulse of 80, temperature 97.4. He is 98% on room air. General description is an elderly male, up in the chair in no distress. RESPIRATORY SYSTEM: Unlabored breathing, clear to auscultation. HEART: S1, S2. Regular rate and rhythm. ABDOMEN: Soft, no tenderness. LABS: Hemoglobin 7.5, white count of 3.9, BUN of 53, creatinine is 1.25. Blood culture repeat has been negative so far. DIAGNOSTIC IMPRESSION AND PLAN: Patient with alpha hemolytic Streptococcus bacteremia in this patient who did have a fever and those blood culture overall likely presenting positive for bacteremia. However, the patient did not have any obvious clinical focus of infection. He did have multiple osteolytic lesion, which are thought to be malignancy, will wait for the sacral biopsy to finalize to make sure no evidence of any osteo. Keep the patient on Rocephin and monitor clinical course closely. MMODL / IJN: [id number] /
--- NOTE | 2019-10-21 17:50 | P.DS ---
Providers Date of admission: 10/18/19 13:51 Expected date of discharge: 10/21/19 Attending physician: Nikhil Bishop Consults: 10/16/19 02:17 Consult Physician Stat Consulting Provider: Dion Hollingsworth Consult Reason/Comments: jaspreet, back pain. lumbar mets hx rcc, elevated troponin, Do you want consulting provider notified?: Yes 10/16/19 02:21 Consult Physician Stat Consulting Provider: Fredy Hatch Consult Reason/Comments: jaspreet, back pain. lumbar mets hx rcc, elevated troponin, Do you want consulting provider notified?: Yes 10/16/19 12:54 Consult Physician Routine Consulting Provider: Patrick Rubio Consult Reason/Comments: bone pain- mets Do you want consulting provider notified?: Yes 10/18/19 11:15 Consult Physician Routine Consulting Provider: Lissa Arriaga Consult Reason/Comments: elev trop, ef 35 Do you want consulting provider notified?: Already Contacted 10/19/19 11:59 Consult Physician Routine Consulting Provider: Mirian De Leon Consult Reason/Comments: positive blood cultures Do you want consulting provider notified?: Yes Primary care physician: Patrick [facility] Hospital Course: Chief Complaint: Increasing low back pain History of presenting complaint: This is a pleasant 64-year-old patient of Dr. Pro Serrano. 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 Patient had been doing well. This was done by Dr. Quinteros. From neurology. Patient now has been having progressively low back pain. Some weakness in the legs. No change in bowel or urine pattern. No fever no chills. Pain is becoming progressively worse. Computed tomography scan in the ER showed extensive osteolytic changes of the lumbar spine and the pelvis with widespread osteolytic disease. A significant progression compared to the previous computed tomography scan. No evidence of compression fracture. Admitted for the same. Oncology was consulted. Patient has been tolerating a diet. Denies any obvious weight loss.. Tired Admitted- lytic lesions to multiple bones. Presacral mass. Now suspected to be multiple myeloma. As opposed to metastatic disease. Sacral mass biopsy was done on October 18.-Came back showing plasma cell neoplasm admission blood clot. Palliative radiation treatment was started on October 18. Blood cultures came back positive for alphahemolytic streptococcus. Received IVs ceftriaxone. Doing much better today. Biopsy results discussed with Dr. Lockhart. Patient be discharged on Keflex for 7 days. Otherwise follow-up with Dr. Hatch. For the multiple myeloma. Discussed with the nurse. Discussion and discharge planning more than 35 minutes Consultation: Dr. Stallings from orthopedics -Dr. Hatch from hematology -Dr. Pro Rubio from radiation oncology Dr. De Leon from [place] Physical examination: VITAL SIGNS: 97.4, 80, 18, 130/73, 98% on room air GENERAL:, Sitting up in a chair, comfortable EYES: Pupils equal. Conjunctiva normal. HEENT: External appearance of nose and ears normal, oral cavity grossly normal. NECK: JVD not raised; masses not palpable. HEART: First and second heart sounds are normal; no edema. LUNGS: Respiratory rate normal; clear to auscultation. ABDOMEN: Soft, nontender, liver spleen not palpable, no masses palpable. PSYCH: Alert and oriented x3; mood and affect normal. INVESTIGATIONS, reviewed in the clinical context: White count 3.9 hemoglobin 7.6 platelets 143 potassium 4.1 creatinine 1.25 . Blood cultures from October 18-negative Sacral mass biopsy-showing plasma cell mass with blood clot Previous testing White count 10.3 hemoglobin 8.1 platelets 137 potassium 4.2 sodium 132 bun 36 creatinine 1.83 AST 98 ALT 80 troponin I 0.074 COVID-19 PCR not detected lumbar spine MRI-osteolytic metastasis throughout the thoracic spine-without evidence of compression fracture. Evidence of DJD disease. At multiple levels. Blood cultures from October 16-alpha hemolytic streptococcus Assessment: -New diagnosis of multiple myeloma., POA. Also showing in the sacral mass biopsy -Normocytic anemia-from multiple myeloma -Troponin leak in the setting of renal failure, not in acute coronary syndrome -Acute kidney injury patient's last creatinine was 1.01 in January 2019. Possible ATN. Patient also takes benazepril, Zestril and Lasix at home. -Hyponatremia Decreased salt intake-corrected -Hyperlipidemia -Multiple sites of DJD -Positive blood cultures alpha hemolytic streptococcus in the setting of immunosuppression., POA Disposition: Home Patient Condition at Discharge: Stable Plan - Discharge Summary Discharge Rx Participant: No New Discharge Prescriptions: New amLODIPine BESYLATE/BENAZEPRIL [Lotrel 10-20 MG] 1 cap PO DAILY #90 cap Metoprolol Succinate (ER) [Toprol XL] 25 mg PO DAILY #90 tab.er.24h Dexamethasone 40 mg PO DAILY #60 tablet Pantoprazole [Protonix] 40 mg PO BID #60 tablet. Cephalexin [Keflex] 500 mg PO Q12HR #14 cap Sennosides [Senokot] 8.6 mg PO BID #30 tab Continue Pravastatin Sodium [Pravachol] 20 mg PO DAILY Gabapentin [Neurontin] 400 mg PO TID Furosemide [Lasix] 20 mg PO DAILY Fluticasone Nasal [place] [Flonase Nasal [place]] 1 spray EA NOSTRIL HS Albuterol Nebulized [Ventolin Nebulized] 2.5 mg INHALATION RT-TID PRN PRN Reason: Shortness Of Breath traMADol HCL 50 mg PO BID Discontinued Metoprolol Succinate (ER) [Toprol Xl] 50 mg PO DAILY Lisinopril [Zestril] 10 mg PO DAILY amLODIPine BESYLATE/BENAZEPRIL [Lotrel 5-10 MG] 1 cap PO DAILY Discharge Medication List Albuterol Nebulized [Ventolin Nebulized] 2.5 mg INHALATION RT-TID PRN 10/16/19 [History] Fluticasone Nasal [place] [Flonase Nasal [place]] 1 spray EA NOSTRIL HS 10/16/19 [History] Furosemide [Lasix] 20 mg PO DAILY 10/16/19 [History] Gabapentin [Neurontin] 400 mg PO TID 10/16/19 [History] Pravastatin Sodium [Pravachol] 20 mg PO DAILY 10/16/19 [History] traMADol HCL 50 mg PO BID 10/16/19 [History] amLODIPine BESYLATE/BENAZEPRIL [Lotrel 10-20 MG] 1 cap PO DAILY #90 cap 10/18/19 [Rx] Dexamethasone 40 mg PO DAILY #60 tablet 10/19/19 [Rx] Metoprolol Succinate (ER) [Toprol XL] 25 mg PO DAILY #90 tab.er.24h 10/19/19 [Rx] Pantoprazole [Protonix] 40 mg PO BID #60 tablet. 10/19/19 [Rx] Cephalexin [Keflex] 500 mg PO Q12HR #14 cap 10/21/19 [Rx] Sennosides [Senokot] 8.6 mg PO BID #30 tab 10/21/19 [Rx] Follow up Appointment(s)/Referral(s): Fredy Hatch MD [STAFF PHYSICIAN] - 10/24/19 10:00 am Saumya Gamez DO [Doctor of Osteopathic Medicine] - 2 Weeks (Patient may follow-up with Sergo Wilkins PA-C or Dr. Jose Gamez at [facility] in 2-3 weeks following discharge. ) Patrick Serrano MD [Primary Care Provider] - 1-2 days Lissa Arriaga MD [STAFF PHYSICIAN] - 10/28/19 (Dr. Arriaga will call you in the afternoon. ) Activity/Diet/Wound Care/Special Instructions: 1. Patient may wear LSO brace for comfort support as needed during ambulation and increase activities 2. Patient should avoid excessive activities and his thoracic and lumbar spines; patient should avoid heavy lifting
--- NOTE | 2019-10-21 20:52 | P.PN ---
Subjective Progress Note Date: 10/21/19 Objective - Vital Signs Vital signs: Vital Signs Temp 97.4 F L 10/21/19 11:02 Pulse 80 10/21/19 11:02 Resp 18 10/21/19 11:02 BP 138/73 10/21/19 11:02 Pulse Ox 98 10/21/19 11:02 Intake & Output 10/20/19 10/21/19 10/21/19 18:59 06:59 18:59 Intake Total 7653 629 8146 Output Total 800 Balance 951 162 7991 Weight 104.3 kg 104.3 kg Intake: Intake, IV Titration 1040 140 Amount Sodium Chloride 0.9% 1, 1040 40 000 ml @ 130 mls/hr IV . Q7H42M JILLIAN Rx#:[id number] cefTRIAXone 2 gm In 100 Sodium Chloride 0.9% 50 ml @ 100 mls/hr IVPB Q24H JILLIAN Rx#:[id number] Oral 965 156 5064 Output: Urine 800 Other: Voiding Method Toilet Toilet # Voids 3 3 2 # Bowel Movements 1 - Exam Constitutional General appearance: Present: average body habitus, cooperative, no acute distress - EENT Eyes: Present: anicteric sclerae, EOMI ENT: Present: hearing grossly normal - Respiratory Respiratory: bilateral: CTA - Cardiovascular Heart sounds: normal: S1, S2 - Peripheral edema leg Peripheral Edema: bilateral: Trace - Gastrointestinal General gastrointestinal: Present: soft - Neurologic Neurologic: Present: CNII-XII intact - Musculoskeletal Musculoskeletal: Present: generalized weakness - Psychiatric Psychiatric: Present: A&O x's 3, appropriate affect, intact judgment & insight - Labs CBC & Chem 7: 10/21/19 05:54 10/21/19 05:54 Labs: Abnormal Lab Results - Last 24 Hours (Table) 10/18/19 10/21/19 10/21/19 Range/Units 06:23 05:54 05:54 RBC 2.36 L (4.30-5.90) m/uL Hgb 7.6 L (13.0-17.5) gm/dL Hct 24.3 L (39.0-53.0) % MCV 102.6 H (80.0-100.0) fL RDW 16.9 H (11.5-15.5) % Plt Count 143 L (150-450) k/uL Lymphocytes # 0.3 L (1.0-4.8) k/uL Carbon Dioxide 21 L (22-30) mmol/L BUN 53 H (9-20) mg/dL Glucose 163 H (74-99) mg/dL Calcium 7.8 L (8.4-10.2) mg/dL AST (17-59) U/L ALT (4-49) U/L Total Protein (6.3-8.2) g/dL Albumin (3.5-5.0) g/dL Methylmalonic Acid 0.59 H (<0.40) umol/L 10/21/19 Range/Units 05:54 RBC (4.30-5.90) m/uL Hgb (13.0-17.5) gm/dL Hct (39.0-53.0) % MCV (80.0-100.0) fL RDW (11.5-15.5) % Plt Count (150-450) k/uL Lymphocytes # (1.0-4.8) k/uL Carbon Dioxide (22-30) mmol/L BUN (9-20) mg/dL Glucose (74-99) mg/dL Calcium (8.4-10.2) mg/dL AST 60 H (17-59) U/L ALT 92 H (4-49) U/L Total Protein 12.2 H (6.3-8.2) g/dL Albumin 2.9 L (3.5-5.0) g/dL Methylmalonic Acid (<0.40) umol/L Microbiology - Last 24 Hours (Table) 10/20/19 06:05 Blood Culture - Preliminary Blood No Growth after 24 hours 10/19/19 18:14 Blood Culture - Preliminary Blood No Growth after 24 hours Assessment and Plan Plan: Assessment and Plan (1) Multiple myeloma Narrative/Plan: [place] light chain returned at 471, paraprotein is 7.74 g/dl. Pt has a history of MGUS many years ago. Presacral mass biopsy pending, anticoagulation resume Requesting FISH on biopsy-if MM/plasmacytoma. If FISH able to be done Bone marrow biopsy will not need to be done Rad Onc delivered 1st radiation to symptomatic presacral mass 10/18. Ortho spine has seen pt, recommendations reviewed Pulse dose dexamathasone, 4 on/ 4 off for immediate treatment started. Aredia, renal dose adjusted given Treatment plan to follow out patient Current Visit: Yes Status: Acute Priority: High Code(s): C90.00 - MULTIPLE MYELOMA NOT HAVING ACHIEVED REMISSION SNOMED Code(s): 342142386 (2) Sacral mass Narrative/Plan: Biopsy with Interventional Radiology, pending path. If + for myeloma/plasmacytoma, FISH studies requested. Radiation due to symptoms of the mass Current Visit: Yes Status: Acute Priority: High Code(s): M53.3 - SACRO COCCYGEAL DISORDERS, NOT ELSEWHERE CLASSIFIED SNOMED Code(s): 77839116 (3) Bone metastases Narrative/Plan: Radiation Oncology consult for painful bone mets/scaral mass. Aredia given, dose reduced for renal function Current Visit: Yes Status: Acute Priority: High Code(s): C79.51 - SECONDARY MALIGNANT NEOPLASM OF BONE SNOMED Code(s): 04119663 (4) Back pain Narrative/Plan: Secondary to bone mets/scacral mass. Pt on ultram at home, he has had 2 doses of IV morphine since admit. He is allergic to hydrocodone. Changed frequency of ultram, pt reports decent pain control. Will ensure pt has Rx with frequency adjustment Medications for prevention of narcotic induced constipation ordered Current Visit: Yes Status: Acute Priority: High Code(s): M54.9 - DORSALGIA, UNSPECIFIED SNOMED Code(s): 029072764 (5) GARY (acute kidney injury) Narrative/Plan: Hx of renal cancer-type unknown-partial nephrectomy. Myeloma work up positive BUN/Cr improved since admit, Will need myeloma treatment to further improve Current Visit: Yes Status: Acute Priority: High Code(s): N17.9 - ACUTE KIDNEY FAILURE, UNSPECIFIED SNOMED Code(s): 70979287 (6) Anemia Narrative/Plan: Anemia of malignancy/inflammation, all studies low with significantly elevated ferritin. No iron. - Hgb stable, no transfusion today. Use irradiated blood products if needed Current Visit: Yes Status: Acute Priority: High Code(s): D64.9 - ANEMIA, UNSPECIFIED SNOMED Code(s): 383094240 (7) History of renal cell carcinoma Narrative/Plan: Treated by Dr. Verdugo at [facility]. Current Visit: Yes Status: Chronic Priority: High Code(s): Z85.528 - PERSONAL HISTORY OF OTHER MALIGNANT NEOPLASM OF KIDNEY SNOMED Code(s): 846189814 Plan: Reviewed bloodwork all improving, LFTs improved Discussed with Pathologist who will send tissue for FISH on biopsy Discussed with primary team Final results will be given after discharge ok to discharge home today Doctor attests: I performed a history and physical examination of this patient, developed impression and plan of care, discussed with dictator. I agree with dictators note, documented as a scribe
--- NOTE | 2019-10-24 15:19 | CDI ---
Documentation Clarification Form Date: 10/24/19 From: Tamiko Cortez CCS Phone: If you have a question about this query, please contact Ciera Lui, Meal Temperer at [phone] between 8am and 5pm. Admit Date: 10/18/19 Discharge Date:10/21/19 Patient Name: Berhane Juarez Visit Number: [id number] ATTENTION: The Clinical Documentation Specialists (CDI) and [facility] Coding Staff appreciate your assistance in clarifying documentation. Please respond to the clarification below the line at the bottom and electronically sign. The CDI & [facility] Coding staff will review the response and follow-up if needed. Please note: Queries are made part of the Legal Health Record. If you have any questions, please contact the author of this message via ITS. Dear Dr. Bishop, CKD is documented in the Consult, PNS. History/Risk Factors: HTN, Renal CA/ S/P Nephrectomy, GARY, CHF, Multiple Myeloma Clinical Indicators: BUN: 36, 38, 53 Creatinine: 1.83, 1.96, 1.68 GFR: 44, 40, 49, 54 Consult: Corina- acute on chronic renal insufficiency In order to capture the severity of condition, please clarify the stage of the CKD, if known: CKD Stage 1 (GFR > 90) CKD Stage 2 (GFR 60-89) CKD Stage 3 (GFR 30-59) CKD Stage 4 (GFR 15-29) CKD Stage 5 (GFR <15) ESRD Other, please specify Unable to determine No CKD MTDD
== END 2019-10-21 19:10 | disposition home or self-care (01) | DRG 824 ==
LOC: EC 22:10 → 3SCARD 10-16 01:20 → 5NMEDONC 10-17 21:19 → OBSVTOIN 10-18 13:51
PROVIDERS: ADMIT Hospitalist; ATTEND Hospitalist
PROC: 0QB13ZX Excision of Sacrum, Percutaneous Approach, Diagnostic (ICD-10-PCS; principal; 2019-10-19)
PROC: DP0C2ZZ Beam Radiation of Other Bone using Photons >10 MeV (ICD-10-PCS; 2019-10-19)
DX: C90.00 Multiple myeloma not having achieved remission (principal); I50.22 Chronic systolic (congestive) heart failure; N17.9 Acute kidney failure, unspecified; E87.1 Hypo-osmolality and hyponatremia; R78.81 Bacteremia; I42.9 Cardiomyopathy, unspecified; Z11.59 Encounter for screening for other viral diseases; I27.20 Pulmonary hypertension, unspecified; I08.2 Rheumatic disorders of both aortic and tricuspid valves; D63.1 Anemia in chronic kidney disease; I11.0 Hypertensive heart disease with heart failure; M45.4 Ankylosing spondylitis of thoracic region; E78.5 Hyperlipidemia, unspecified; G89.3 Neoplasm related pain (acute) (chronic); D63.0 Anemia in neoplastic disease; I44.7 Left bundle-branch block, unspecified; M19.90 Unspecified osteoarthritis, unspecified site; R50.9 Fever, unspecified; R79.89 Other specified abnormal findings of blood chemistry; M51.36 Other intervertebral disc degeneration, lumbar region; M51.34 Other intervertebral disc degeneration, thoracic region; M25.78 Osteophyte, vertebrae; M48.061 Spinal stenosis, lumbar region without neurogenic claudication; R00.1 Bradycardia, unspecified; B95.4 Other streptococcus as the cause of diseases classified elsewhere; Z79.899 Other long term (current) drug therapy; Z85.528 Personal history of other malignant neoplasm of kidney; Z98.49 Cataract extraction status, unspecified eye; Z90.5 Acquired absence of kidney; Z96.653 Presence of artificial knee joint, bilateral; Z74.09 Other reduced mobility; Z88.5 Allergy status to narcotic agent
CPT/HCPCS: 20220; 36415; 51798; 71250; 72131; 72157; 72158; 77012; 77280; 77290; 77307; 77332; 77334; 77336; 77412; 77417; 80048; 80053; 80076; 80202; 81001; 82565; 82607; 82728; 82747; 83540; 83550; 83883; 83921; 84165; 84484; 85025; 85610; 85652; 86140; 86334; 87040; 87077; 87086; 87186; 87635; 88305; 88341; 88342; 93005; 93306; 94640; 96361; 96374; 99285

== ENCOUNTER → 2019-10-27 | Outpatient (CLI) | payer OTHER, MEDICARE ==
--- NOTE | 2019-10-27 14:44 | XR ---
EXAMINATION TYPE: XR bone survey complete DATE OF EXAM: 10/27/2019 COMPARISON: MR thoracic and lumbar spine 09/17/2019, CT 10/16/2019 HISTORY: C 90.00 Renal cell carcinoma metastasis Frontal view of the chest, frontal and lateral views of the spine, frontal views the proximal upper a nd lower extremities, 2 views of the calvarium, frontal view the pelvis are submitted on a total of 1 7 images. Multiple small focal lytic areas are present throughout the pelvis and proximal upper and lower extre mities. Lucency within the thoracic spine correlates with thoracic MRI findings. Lytic focus is prese nt in the calvarium on the left. IMPRESSION: Findings consistent with diffuse bony metastatic disease.
== END | disposition home or self-care (01) ==
LOC: RADXRMAIN 11:12
PROVIDERS: ATTEND Internal Medicine Hematology & Oncology
DX: C90.00 Multiple myeloma not having achieved remission (principal); I10 Essential (primary) hypertension; M12.9 Arthropathy, unspecified; E78.00 Pure hypercholesterolemia, unspecified
CPT/HCPCS: 77075

== ENCOUNTER 2019-10-31 13:32 | Inpatient (IN) | payer OTHER, MEDICARE ==
[2019-10-31] MEDS ORDERED: SODIUM CHLORIDE 0.9% 1,000 ML IV STA (14:04)
[2019-10-31] MEDS ORDERED: DIAZEPAM 5 MG/ML 2 ML INJ IVP STA (14:04)
[2019-10-31] MEDS ORDERED: MORPHINE SULFATE 4 MG/ML SYRINGE IV STA (14:04)
--- NOTE | 2019-10-31 14:33 | ED ---
Back Pain HPI - General Chief Complaint: Back Pain/Injury Stated Complaint: Back pain Time Seen by Provider: 10/31/19 13:35 Source: patient, EMS, RN notes reviewed, old records reviewed Limitations: physical limitation - History of Present Illness Initial Comments: 64-year-old male presents emergency department today with acute worsening back pain with radiation towards his right buttocks and gluteal region. Patient was found to have a history of significant metastatic cancer to the spine with history of multiple myeloma and has recently had radiation for a sacral region m ass. He is taking [place] and gabapentin for pain management. Denies any loss of control of urine or bowel habits. Denies any specific abdominal pain at this time. Patient reports pain is worse with certain movements including twisting and turning. He denies any other significant complaints. Patient arrived via EMS and had to have 50 g of fentanyl in order to get placed into the ambulance. He denies any specific falls or trauma. - Related Data Home Medications Medication Instructions Recorded Confirmed Albuterol Nebulized [Ventolin 2.5 mg INHALATION RT-TID PRN 10/16/19 10/16/19 Nebulized] Fluticasone Nasal [place] [Flonase 1 spray EA NOSTRIL HS 10/16/19 10/16/19 Nasal [place]] Furosemide [Lasix] 20 mg PO DAILY 10/16/19 10/16/19 Gabapentin [Neurontin] 400 mg PO TID 10/16/19 10/16/19 Pravastatin Sodium [Pravachol] 20 mg PO DAILY 10/16/19 10/16/19 traMADol HCL 50 mg PO BID 10/16/19 10/16/19 Previous Rx's Medication Instructions Recorded amLODIPine BESYLATE/BENAZEPRIL 1 cap PO DAILY #90 cap 10/18/19 [Lotrel 10-20 MG] Dexamethasone 40 mg PO DAILY #60 tablet 10/19/19 Metoprolol Succinate (ER) [Toprol 25 mg PO DAILY #90 tab.er.24h 10/19/19 XL] Pantoprazole [Protonix] 40 mg PO BID #60 tablet.dr 10/19/19 Cephalexin [Keflex] 500 mg PO Q12HR #14 cap 10/21/19 Sennosides [Senokot] 8.6 mg PO BID #30 tab 10/21/19 Allergies Allergy/AdvReac Type Severity Reaction Status Date / Time hydrocodone [From [place]] Allergy Unknown Verified 10/16/19 15:18 Review of Systems ROS Statement: Those systems with pertinent positive or pertinent negative responses have been documented in the HPI. ROS Other: All systems not noted in ROS Statement are negative. Past Medical History Past Medical History: Cancer, Hypertension Additional Past Medical History / Comment(s): back pain, partial nephrectomy, bilat knee replacement, R sided kidney ca, multiple myeloma History of Any Multi-Drug Resistant Organisms: None Reported Past Surgical History: Appendectomy, Joint Replacement, Orthopedic Surgery Additional Past Surgical History / Comment(s): carpel tunnel, cataract, partial kidney removal right side. Past Psychological History: No Psychological Hx Reported Smoking Status: Never smoker Past Alcohol Use History: None Reported Past Drug Use History: None Reported General Exam - General Exam Comments Initial Comments: 64 yo male, no acute distress. Limitations: physical limitation General appearance: alert, in no apparent distress Head exam: Present: atraumatic, normocephalic, normal inspection Eye exam: Present: normal appearance, PERRL, EOMI. Absent: scleral icterus, conjunctival injection, periorbital swelling ENT exam: Present: normal exam Neck exam: Present: normal inspection. Absent: tenderness, meningismus, lympha denopathy Respiratory exam: Present: normal lung sounds bilaterally. Absent: respiratory distress, wheezes, rales, rhonchi, stridor Cardiovascular Exam: Present: regular rate, normal rhythm, normal heart sounds. Absent: systolic murmur, diastolic murmur, rubs, gallop, clicks GI/Abdominal exam: Present: soft, tenderness (lumbar spine), normal bowel sounds. Absent: distended, guarding, rebound, rigid Extremities exam: Present: normal inspection, full ROM, normal capillary refill, other ( Normal pulses in bilateral lower extremities.). Absent: tenderness, pedal edema, joint swelling, calf tenderness Back exam: Present: normal inspection. Absent: full ROM (lumbar spinal tenderness radiation down R back ) Neurological exam: Present: alert Psychiatric exam: Present: normal affect, normal mood Skin exam: Present: warm, dry, intact, normal color. Absent: rash Course Vital Signs 10/31/19 10/31/19 13:36 15:37 Temperature 97.8 F 97.8 F Pulse Rate 89 81 Respiratory 18 18 Rate Blood Pressure 145/85 132/81 O2 Sat by Pulse 97 97 Oximetry Medical Decision Making - Medical Decision Making Patient is a a 64-year-old male with recent history of multiple myeloma with a history of a sacral mass receiving radiation. Patient has been dosed with dexamethasone recently, and is taking [place] gabapentin, Ultram and ibuprofen with still uncontrollable pain. He denies any fall or trauma but worsening pain over the past 24 hours. At this time Patient does have normal pulses distally and range of motion lower extremities with pain with movement. Patient at this time or see multiple doses of narcotic pain medication still unable to ambulate well to the pain. X-ray today shows no acute compression fracture however evidence of demineralization consistent with metastatic disease. Patient had multiple imaging studies done on his last visit. Due to the persistent and un controlled pain Patient will be admitted after discussing the case with Dr. George. He discussed this with Dr. Hatch request a consult to patient's radiation oncologist Dr. Rubio and to continue decadron. - Lab Data Result diagrams: 10/31/19 15:02 10/31/19 15:02 Lab Results 10/31/19 10/31/19 10/31/19 Range/Units 15:02 15:02 Unknown WBC 6.4 (3.8-10.6) k/uL RBC 2.65 L (4.30-5.90) m/uL Hgb 8.5 L (13.0-17.5) gm/dL Hct 26.3 L (39.0-53.0) % MCV 99.0 (80.0-100.0) fL MCH 32.1 (25.0-35.0) pg MCHC 32.4 (31.0-37.0) g/dL RDW 18.1 H (11.5-15.5) % Plt Count 153 (150-450) k/uL Neutrophils % 91 % Lymphocytes % 4 % Monocytes % 4 % Eosinophils % 1 % Basophils % 0 % Neutrophils # 5.8 (1.3-7.7) k/uL Lymphocytes # 0.2 L (1.0-4.8) k/uL Monocytes # 0.2 (0-1.0) k/uL Eosinophils # 0.1 (0-0.7) k/uL Basophils # 0.0 (0-0.2) k/uL Hypochromasia Slight Anisocytosis Slight Macrocytosis Slight Sodium 134 L (137-145) mmol/L Potassium 4.1 (3.5-5.1) mmol/L Chloride 102 (98-107) mmol/L Carbon Dioxide 28 (22-30) mmol/L Anion Gap 4 mmol/L BUN 29 H (9-20) mg/dL Creatinine 0.90 (0.66-1.25) mg/dL Est GFR (CKD-EPI)AfAm >90 (>60 ml/min/1.73 sqM) Est GFR (CKD-EPI)NonAf 89 (>60 ml/min/1.73 sqM) Glucose 86 (74-99) mg/dL Calcium 7.5 L (8.4-10.2) mg/dL Total Bilirubin 1.0 (0.2-1.3) mg/dL AST 51 (17-59) U/L ALT 94 H (4-49) U/L Alkaline Phosphatase 113 (38-126) U/L Total Protein 10.7 H (6.3-8.2) g/dL Albumin 3.0 L (3.5-5.0) g/dL Urine Color Light Yellow Urine Appearance Clear (Clear) Urine pH 7.5 (5.0-8.0) Ur Specific [place] 1.008 (1.001-1.035) Urine Protein Negative (Negative) Urine Glucose (UA) Negative (Negative) Urine Ketones Negative (Negative) Urine Blood Negative (Negative) Urine Nitrite Negative (Negative) Urine Bilirubin Negative (Negative) Urine Urobilinogen <2.0 (<2.0) mg/dL Ur Leukocyte Esterase Negative (Negative) - Radiology Data Radiology results: report reviewed Disposition Clinical Impression: Back pain, Metastatic disease, Bone metastases, Uncontrolled pain Disposition: ADMITTED IP TO THIS [facility] Condition: Stable Is patient prescribed a controlled substance at d/c from ED?: No Referrals: Patrick Serrano MD [Primary Care Provider] - 1-2 days Time of Disposition: 17:03
[2019-10-31 15:11] LABS: Anisocytosis Slight; Basophils % (A) 0 %; Eosinophils # (A) 0.1 k/uL (0-0.7); Eosinophils % (A) 1 %; HCT 26.3 % (39.0-53.0); HGB 8.5 gm/dL (13.0-17.5); Hypochromasia Slight; Lymphocytes # (A) 0.2 k/uL (1.0-4.8); Lymphocytes % (A) 4 %; MCH 32.1 pg (25.0-35.0); MCHC 32.4 g/dL (31.0-37.0); Macrocytosis Slight; Mean Platelet Volume 9.1; Monocytes # (A) 0.2 k/uL (0-1.0); Monocytes % (A) 4 %; Neutrophils # (A) 5.8 k/uL (1.3-7.7); Neutrophils % (A) 91 %; Platelet Count 153 k/uL (150-450); RBC 2.65 m/uL (4.30-5.90); RDW 18.1 % (11.5-15.5); WBC 6.4 k/uL (3.8-10.6)
[2019-10-31 15:12] LABS: Appearance,Urine Clear (Clear); Bilirubin,Urine Negative (Negative); Blood,Urine Negative (Negative); Color,Urine Light Yellow; Glucose,Urine (UA) Negative (Negative); Ketones,Urine Negative (Negative); Leukocyte Esterase,Urine Negative (Negative); Nitrite,Urine Negative (Negative); PH, Urine 7.5 (5.0-8.0); Protein,Urine Negative (Negative); Specific Gravity,Urine 1.008 (1.001-1.035); Urobilinogen,Urine <2.0 mg/dL (<2.0)
[2019-10-31 15:18] LABS: ALT 94 U/L (4-49); AST 51 U/L (17-59); African American GFR (CKD) >90 (>60 ml/min/1.73 sqM); Alkaline Phosphatase 113 U/L (38-126); Anion Gap 4 mmol/L; Blood Urea Nitrogen 29 mg/dL (9-20); Calcium 7.5 mg/dL (8.4-10.2); Carbon Dioxide 28 mmol/L (22-30); Chloride 102 mmol/L (98-107); Glucose 86 mg/dL (74-99); Non-African American GFR(CKD) 89 (>60 ml/min/1.73 sqM); Potassium 4.1 mmol/L (3.5-5.1); Sodium 134 mmol/L (137-145); Total Protein 10.7 g/dL (6.3-8.2)
--- NOTE | 2019-10-31 15:45 | XR ---
Lumbar spine history: Pain, metastatic disease, multiple myeloma 3 views of the lumbar spine correlated to CT 10/15/2019 Surgical clips are present in the right upper quadrant. Calcifications are present left upper quadran t, calcification over the left kidney region measures approximately 7 8 mm. Spine shows multilevel spondylosis, there is loss of disc height at intervertebral levels. Lumbar alan tebral bodies show preserved height. Sclerosis is present in the posterior elements of the lower lumb ar spine. Lumbar vertebral bodies show preserved alignment. Bone mineralization is remarkable for mul tiple lytic lesions as noted on CT, largest at the posterior aspect of the L2 vertebral body superior ly measures 15 mm, similarly superior aspect of L3 spinous process shows a lytic appearance superior margin. Multilevel vacuum disc phenomenon suspected. IMPRESSION: Degenerative disc disease and facet arthropathy. Findings consistent with patient's histo ry of multiple myeloma.
[2019-10-31] MEDS ORDERED: MORPHINE SULFATE 2 MG/ML SYRINGE IVP ONE (16:54)
[2019-10-31] MEDS ORDERED: KETOROLAC 30 MG/ML 1 ML VIAL IVP STA (16:54)
[2019-10-31] MEDS ORDERED: MORPHINE SULFATE 4 MG/ML SYRINGE IV PRN (17:04)
[2019-10-31] MEDS ORDERED: ACETAMINOPHEN TAB 325 MG TAB PO PRN (17:04)
[2019-10-31] MEDS ORDERED: NALOXONE 0.4 MG/ML 1 ML VIAL IV PRN (17:04)
[2019-10-31] MEDS ORDERED: ONDANSETRON 4 MG/2 ML VIAL IVP PRN (17:04)
[2019-10-31] MEDS ORDERED: DEXAMETHASONE SOD PHOSPHATE 10 MG/ML 1 ML VIAL IV STA (17:08)
[2019-10-31] MEDS: SODIUM CHLORIDE 0.9% 1,000 ML IV SCH (18:53)
[2019-10-31] MEDS ORDERED: ALBUTEROL NEBULIZED 2.5 MG/3 ML INHALATION PRN (20:29)
[2019-10-31] MEDS ORDERED: HYDROcodone/APAP 5-325MG 1 EACH TAB PO PRN (20:29)
[2019-10-31] MEDS: FLUTICASONE 50MCG/SPRAY NASAL 16GM EA NOSTRIL SCH (22:21)
[2019-10-31] MEDS: SENNOSIDES 8.6 MG TAB PO SCH (22:24)
[2019-10-31] MEDS: GABAPENTIN 400 MG CAP PO SCH (22:24)
[2019-10-31] MEDS: traMADol 50 MG TAB PO SCH (22:24)
[2019-10-31] MEDS: PANTOPRAZOLE 40 MG TABLET PO SCH (22:24)
[2019-11-01] MEDS: SODIUM CHLORIDE 0.9% 1,000 ML IV SCH ×2 (05:18→14:13)
[2019-11-01] MEDS ORDERED: FUROSEMIDE 20 MG TAB PO SCH (09:00)
[2019-11-01] MEDS ORDERED: PANTOPRAZOLE 40 MG/10 ML VIAL IV SCH (09:00)
[2019-11-01] MEDS: METOPROLOL SUCCINATE (ER) 25 MG TAB.ER.24H PO SCH (09:03)
[2019-11-01] MEDS: traMADol 50 MG TAB PO SCH ×2 (09:03→21:22)
[2019-11-01] MEDS: PRAVASTATIN SODIUM 20 MG TAB PO SCH (09:03)
[2019-11-01] MEDS: SENNOSIDES 8.6 MG TAB PO SCH ×2 (09:03→21:22)
[2019-11-01] MEDS: LISINOPRIL 20 MG TAB PO SCH (09:03)
[2019-11-01] MEDS: PANTOPRAZOLE 40 MG TABLET PO SCH ×2 (09:04→17:21)
[2019-11-01] MEDS: GABAPENTIN 400 MG CAP PO SCH ×3 (09:04→21:21)
[2019-11-01] MEDS: amLODIPine 10 MG TAB PO SCH (09:04)
[2019-11-01 10:39] VITALS: BMI 31.5
[2019-11-01 13:38] LABS: Anisocytosis Slight; Basophils % (A) 0 %; Eosinophils % (A) 1 %; HCT 28.9 % (39.0-53.0); HGB 9.3 gm/dL (13.0-17.5); Hypochromasia Slight; Lymphocytes # (A) 0.2 k/uL (1.0-4.8); Lymphocytes % (A) 4 %; MCH 31.5 pg (25.0-35.0); MCHC 32.1 g/dL (31.0-37.0); MCV 98.1 fL (80.0-100.0); Macrocytosis Slight; Mean Platelet Volume 8.5; Monocytes # (A) 0.2 k/uL (0-1.0); Monocytes % (A) 4 %; Neutrophils # (A) 4.4 k/uL (1.3-7.7); Neutrophils % (A) 90 %; Platelet Count 167 k/uL (150-450); RBC 2.95 m/uL (4.30-5.90); RDW 17.9 % (11.5-15.5); WBC 4.9 k/uL (3.8-10.6)
[2019-11-01 13:50] LABS: ALT 84 U/L (4-49); AST 36 U/L (17-59); African American GFR (CKD) >90 (>60 ml/min/1.73 sqM); Albumin 2.9 g/dL (3.5-5.0); Alkaline Phosphatase 118 U/L (38-126); Anion Gap 9 mmol/L; Blood Urea Nitrogen 31 mg/dL (9-20); Calcium 7.4 mg/dL (8.4-10.2); Carbon Dioxide 23 mmol/L (22-30); Chloride 104 mmol/L (98-107); Glucose 121 mg/dL (74-99); Magnesium 1.7 mg/dL (1.6-2.3); Non-African American GFR(CKD) 82 (>60 ml/min/1.73 sqM); Potassium 4.6 mmol/L (3.5-5.1); Sodium 136 mmol/L (137-145); Total Bilirubin 0.8 mg/dL (0.2-1.3); Total Protein 10.7 g/dL (6.3-8.2)
[2019-11-01] MEDS ORDERED: MORPHINE SULFATE ER 15 MG TABLET PO SCH (14:00)
[2019-11-01] MEDS: NAPROXEN 250 MG TAB PO SCH ×2 (14:12→21:21)
[2019-11-01] MEDS: MORPHINE SULFATE ER 15 MG TABLET PO SCH ×2 (14:12→23:35)
[2019-11-01] MEDS: ENOXAPARIN 40 MG/0.4 ML SYRINGE SQ SCH (14:13)
--- NOTE | 2019-11-01 16:59 | MR ---
EXAMINATION TYPE: MR lumbar spine wo/w con DATE OF EXAM: 11/01/2019 COMPARISON: 10/27/2019 bone survey, 10/17/2019 MRI lumbar spine HISTORY: Progressive Metastatic Disease CONTRAST: 10 mL intravenous Gadavist. TECHNIQUE: Multiplanar, multisequence images of the lumbar spine were acquired. FINDINGS: Diffuse contrast enhancement is evident especially through L2-S1. Findings can be compatib le with the patient's metastatic disease. No compression is evident. There is some disc space narrowi ng diffusely which can be degenerative in nature. This may be greater at L1-2 and L5-S1. L5-S1: Some disc bulge has mild anterior thecal sac compression. No spinal canal stenosis is present. Neural foramen are patent. L4-L5: There is central protrusion with mild anterior thecal sac contact. No AP spinal canal stenosis is present. Neural foramen appear patent L3-L4: Mild broad-based disc bulge has anterior thecal sac contact. No spinal canal stenosis or neura l foraminal stenosis is present L2-L3: Broad-based disc bulge is present with anterior thecal sac compression. No spinal canal stenos is is present. Neural foramen are patent. L1-L2: Broad-based disc bulge has anterior thecal sac flattening. Facet hypertrophy is present with s ome posterior lateral thecal sac compression. No AP spinal canal stenosis present. Neural foramen are patent. T12-L1: Mild anterior thecal sac flattening is present from disc bulge. No spinal canal stenosis or n eural foraminal stenosis is evident. Diffuse disc desiccation is throughout the lumbar spine. Diffuse facet mild hypertrophy is present. IMPRESSION: 1. Diffuse metastatic disease especially noted L2-S1. No vertebral collapse or suspicious expansion i s evident. 2. Multilevel degenerative disc changes.
[2019-11-01] MEDS: DEXAMETHASONE SOD PHOSPHATE 4 MG/ML 1 ML VIAL IV SCH ×2 (17:21→23:34)
--- NOTE | 2019-11-01 18:13 | P.HPIM ---
History of Present Illness H&P Date: 11/01/19 Chief Complaint: Back pain Chief Complaint: Increasing low back pain History of presenting complaint: This is a pleasant 64-year-old patient of Dr. Pro Serrano. About 2 years ago patient underwent partial nephrectomy on the right side for adrenal tumor.-by Dr. Quinteros.. On October 15 patient presented to the hospital here with progressively low back pain. Some weakness in the legs. No change in bowel or urine pattern. No fever no chills. Pain was becoming progressively worse. Computed tomography scan in the ER showed extensive osteolytic changes of the lumbar spine and the pelvis with widespread osteolytic disease. A significant progression compared to the previous computed tomography scan. No evidence of compression fracture. Presacral mass. Diagnosed with multiple myeloma. Sacral mass biopsy was done on October 18.-Came back showing plasma cell neoplasm admission blood clot. Palliative radiation treatment was started . Blood cultures came back positive for alphahemolytic streptococcus. She was discharged on October 20. Patient was due to start treatment shortly and was due to come in for discussion. Patient's pain has become rather significant.Even difficult to walk. Uncontrolled. No change in urine pattern. Some constipation. Able to tolerate some diet. No fever no chills Review of systems: GEN.: Tired EYES: None HEENT: None NECK: None RESPIRATORY: None CARDIOVASCULAR: None GASTROINTESTINAL: None GENITOURINARY: None MUSCULOSKELETAL: As above LYMPHATICS: None HEMATOLOGICAL: None PSYCHIATRY: None NEUROLOGICAL: None Past medical history to include: Hypertension, partial right nephrectomy for tumor/cancer, osteoarthritis, multiple myeloma Social history: . Was working at [employer]. Does not smoke or drink alcohol. Family history: Reviewed, noncontributory to presentation Physical examination: VITAL SIGNS: 97.6, 62, 16, 135/75, 97% on room air GENERAL: BMI 31.6, laying in bed, slightly uncomfortable. EYES: Pupils equal. Conjunctiva normal. HEENT: External appearance of nose and ears normal, oral cavity grossly normal. NECK: JVD not raised; masses not palpable. HEART: First and second heart sounds are normal; no edema. LUNGS: Respiratory rate normal; clear to auscultation. ABDOMEN: Soft, nontender, liver spleen not palpable, no masses palpable. PSYCH: Alert and oriented x3; mood and affect normal. NEUROLOGICAL: [Cranial nerves grossly intact; no facial asymmetry, patient able to raise both his legs to about 20. Reflexes are symmetrical in the lower extremity LYMPHATICS: No lymph nodes palpable in the axilla and neck INVESTIGATIONS, reviewed in the clinical context: White count 4.9 hemoglobin 9.3 platelets were 67 potassium 4.6 creatinine 0.97 albumin 2.9 Lumbar spine x-ray results noted-DJD changes and lytic lesions Assessment: - multiple myeloma. Including positive in the sacral mass biopsy-causing increasingly low back pain possibly neuropathic with radiation -Gait dysfunction from severe pain arthritis multiple myeloma -Normocytic anemia-from multiple myeloma -Hyperlipidemia -Multiple sites of DJD -Hypoalbuminemia-acute phase reactant -Essential hypertension -Acute constipation from decreased activity and pain medications Plan: At this point patient be started on naproxen to add anti-inflammatory component. MS Contin 50 mg every 8 and home medications resumed. Care was discussed with the patient. This also started on IV Decadron. Consultation to radiation oncology and oncology was done. Lovenox for DVT prophylaxis. Activity as beti ated. We'll also add Metamucil - Past Medical History Past Medical History: Cancer, Hypertension Additional Past Medical History / Comment(s): back pain, partial nephrectomy, bilat knee replacement, R sided kidney ca, multiple myeloma History of Any Multi-Drug Resistant Organisms: None Reported Past Surgical History: Appendectomy, Joint Replacement, Orthopedic Surgery Additional Past Surgical History / Comment(s): carpel tunnel, cataract, partial kidney removal right side. Past Psychological History: No Psychological Hx Reported Smoking Status: Never smoker Past Alcohol Use History: None Reported Past Drug Use History: None Reported - Past Family History Father Additional Family Medical History / Comment(s): prostate cancer mets to bone Medications and Allergies Home Medications Medication Instructions Recorded Confirmed Type Albuterol Nebulized [Ventolin 2.5 mg INHALATION RT-TID PRN 10/16/19 10/31/19 History Nebulized] Fluticasone Nasal [place] [Flonase 1 spray EA NOSTRIL HS 10/16/19 10/31/19 History Nasal [place]] Furosemide [Lasix] 20 mg PO DAILY 10/16/19 10/31/19 History Pravastatin Sodium [Pravachol] 20 mg PO DAILY 10/16/19 10/31/19 History traMADol HCL 50 mg PO BID 10/16/19 10/31/19 History amLODIPine BESYLATE/BENAZEPRIL 1 cap PO DAILY #90 cap 10/18/19 10/31/19 Rx [Lotrel 10-20 MG] Metoprolol Succinate (ER) [Toprol 25 mg PO DAILY #90 tab.er.24h 10/19/19 10/31/19 Rx XL] Pantoprazole [Protonix] 40 mg PO BID #60 tablet.dr 10/19/19 10/31/19 Rx Sennosides [Senokot] 8.6 mg PO BID #30 tab 10/21/19 10/31/19 Rx Gabapentin [Neurontin] 400 mg PO TID 10/31/19 10/31/19 History HYDROcodone/APAP 5-325MG [[place] 1 tab PO Q6H PRN 10/31/19 10/31/19 History 5-325] Allergies Allergy/AdvReac Type Severity Reaction Status Date / Time hydrocodone [From [place]] Allergy Unknown Verified 10/31/19 18:11 Physical Exam Vitals: Vital Signs Temp Pulse Pulse Resp BP BP Pulse Ox 11/01/19 05:05 97.7 F 79 16 131/79 99 11/01/19 00:00 18 10/31/19 21:12 97.8 F 82 18 132/83 90 L 10/31/19 21:11 82 18 132/83 10/31/19 21:00 136/85 90 L 10/31/19 20:50 136/85 87 L 10/31/19 20:40 136/85 91 L 10/31/19 20:30 127/81 91 L 10/31/19 20:20 127/81 87 L 10/31/19 20:10 127/81 86 L 10/31/19 20:00 98 16 131/83 87 L 10/31/19 19:50 18 131/83 89 L 10/31/19 19:45 81 16 131/83 98 10/31/19 19:40 16 131/83 94 L 10/31/19 19:30 18 131/81 93 L 10/31/19 19:28 98.3 F 91 18 140/80 98 10/31/19 19:20 16 131/81 93 L 10/31/19 19:10 18 131/81 96 10/31/19 19:00 130/78 94 L 10/31/19 18:50 130/78 96 05/18/20 18:40 130/78 97 05/18/20 18:30 136/82 94 L 05/18/20 18:20 136/82 94 L 05/18/20 18:10 136/82 93 L 05/18/20 18:00 140/82 96 05/18/20 17:50 140/82 94 L 05/18/20 17:40 140/82 95 05/18/20 17:30 131/80 95 05/18/20 17:20 131/80 96 05/18/20 17:10 131/80 95 05/18/20 17:07 82 18 131/80 96 05/18/20 17:00 138/81 94 L 05/18/20 16:50 138/81 95 05/18/20 16:40 138/81 95 05/18/20 16:30 129/77 97 05/18/20 16:20 129/77 95 05/18/20 16:10 129/77 94 L 05/18/20 16:00 132/81 95 05/18/20 15:50 132/81 93 L 05/18/20 15:40 132/81 96 05/18/20 15:37 97.8 F 81 18 132/81 97 05/18/20 15:30 145/85 97 05/18/20 15:20 145/85 05/18/20 15:10 145/85 05/18/20 15:00 145/85 05/18/20 14:50 145/85 05/18/20 14:40 145/85 05/18/20 14:30 145/85 05/18/20 14:20 145/85 05/18/20 14:10 145/85 05/18/20 14:00 145/85 05/18/20 13:50 145/85 96 05/18/20 13:40 145/85 97 05/18/20 13:37 145/85 98 05/18/20 13:36 97.8 F 89 18 145/85 97 Intake and Output 05/18/20 05/19/20 05/19/20 22:59 06:59 14:59 Intake Total 440 Balance 440 Intake: Intake, IV Titration 200 Amount Sodium Chloride 0.9% 1, 200 000 ml @ 100 mls/hr IV . Q10H [facility] Rx#:[id number] Oral 240 Other: Voiding Method Urinal # Voids 1 1 Weight 99.79 kg Results CBC & Chem 7: 11/01/19 13:28 11/01/19 13:28 Labs: Abnormal Lab Results - Last 24 Hours (Table) 10/31/19 10/31/19 Range/Units 15:02 15:02 RBC 2.65 L (4.30-5.90) m/uL Hgb 8.5 L (13.0-17.5) gm/dL Hct 26.3 L (39.0-53.0) % RDW 18.1 H (11.5-15.5) % Lymphocytes # 0.2 L (1.0-4.8) k/uL Sodium 134 L (137-145) mmol/L BUN 29 H (9-20) mg/dL Calcium 7.5 L (8.4-10.2) mg/dL ALT 94 H (4-49) U/L Total Protein 10.7 H (6.3-8.2) g/dL Albumin 3.0 L (3.5-5.0) g/dL Thrombosis Risk Factor Assmnt - Choose All That Apply Any of the Below Risk Factors Present?: Yes Other Risk Factors: Yes Each Risk Factor Represents 2 Points: Age 61-74 years, Malignancy Thrombosis Risk Factor Assessment Total Risk Factor Score: 4 Thrombosis Risk Factor Assessment Level: Moderate Risk
[2019-11-01] MEDS: FLUTICASONE 50MCG/SPRAY NASAL 16GM EA NOSTRIL SCH (21:22)
--- NOTE | 2019-11-01 21:50 | P.CONS ---
History of Present Illness - Reason for Consult Consult date: 11/01/19 multiple myeloma Requesting physician: Blanche Ridley - Chief Complaint back pain - History of Present Illness Patient is a 64-year-old white male, with a known history of right-sided renal cell carcinoma. The patient had partial nephrectomy for the same in 2017 at [facility]. He is not aware of the exact type of cancer. The patient has been following with urology at [facility] with serial imaging. Most recent imaging was in 04/02 showing only a new L2 endplate lesion that was felt to be most likely degenerative. The patient had no symptoms, and one year follow-up was recommended He was admitted earlier this month for left-sided back pain radiating into the buttock and down the leg about a month ago. Initially this was mild and intermittent but subsequently became more persistent and severe. He started to have progressive difficulty in walking and bearing weight on the left leg. At that time he also lost control of his urine. Imaging showed multiple areas of osteolytic metastatic-appearing lesions, including masslike area involving the left sacrum, 6.5 cm. He was seen and evaluated by oncology and radiation oncology, dexamethasone and PPI was initiated as well as pain management, he has undergone biopsy, he did get palliat of radiation to the presacral mass. Back pain was better managed after radiation and on current pain meds, leg weakness was stable.,No further incontinence of urinehe started to ambulate with walker. Unfortunately the past few days he started to notice similiar pain but on opposite side of lower back. His biopsy from last admission completed on 10/19/19 revealed plasma cell consistent with myeloma. He has seen Dr. Hatch in office once to set up for treatment plan. Final Diagnosis [place] [employer] multiple myeloma with Plasma cell sacral mass and positive bone lesions. Review of Systems A 14 point review of systems was assessed and completed and all negative except HPI Past Medical History Past Medical History: Cancer, Hypertension Additional Past Medical History / Comment(s): back pain, partial nephrectomy, bilat knee replacement, R sided kidney ca, multiple myeloma History of Any Multi-Drug Resistant Organisms: None Reported Past Surgical History: Appendectomy, Joint Replacement, Orthopedic Surgery Additional Past Surgical History / Comment(s): carpel tunnel, cataract, partial kidney removal right side. Past Psychological History: No Psychological Hx Reported Smoking Status: Never smoker Past Alcohol Use History: None Reported Past Drug Use History: None Reported - Past Family History Father Additional Family Medical History / Comment(s): prostate cancer mets to bone Medications and Allergies Home Medications Medication Instructions Recorded Confirmed Type Albuterol Nebulized [Ventolin 2.5 mg INHALATION RT-TID PRN 10/16/19 10/31/19 History Nebulized] Fluticasone Nasal [place] [Flonase 1 spray EA NOSTRIL HS 10/16/19 10/31/19 History Nasal [place]] Furosemide [Lasix] 20 mg PO DAILY 10/16/19 10/31/19 History Pravastatin Sodium [Pravachol] 20 mg PO DAILY 10/16/19 10/31/19 History traMADol HCL 50 mg PO BID 10/16/19 10/31/19 History amLODIPine BESYLATE/BENAZEPRIL 1 cap PO DAILY #90 cap 10/18/19 10/31/19 Rx [Lotrel 10-20 MG] Metoprolol Succinate (ER) [Toprol 25 mg PO DAILY #90 tab.er.24h 10/19/19 10/31/19 Rx XL] Pantoprazole [Protonix] 40 mg PO BID #60 tablet.dr 10/19/19 10/31/19 Rx Sennosides [Senokot] 8.6 mg PO BID #30 tab 10/21/19 10/31/19 Rx Gabapentin [Neurontin] 400 mg PO TID 10/31/19 10/31/19 History HYDROcodone/APAP 5-325MG [[place] 1 tab PO Q6H PRN 10/31/19 10/31/19 History 5-325] Allergies Allergy/AdvReac Type Severity Reaction Status Date / Time hydrocodone [From [place]] Allergy Unknown Verified 10/31/19 18:11 Physical Exam Vitals: Vital Signs Temp Pulse Resp BP Pulse Ox 11/01/19 12:06 97.9 F 85 17 137/77 98 11/01/19 05:05 97.7 F 79 16 131/79 99 11/01/19 00:00 18 Intake and Output 11/01/19 11/01/19 11/01/19 06:59 14:59 22:59 Intake Total 800 Output Total 375 Balance 425 Intake: Intake, IV Titration 800 Amount Sodium Chloride 0.9% 1, 800 000 ml @ 100 mls/hr IV . Q10H [facility] Rx#:[id number] Output: Urine 375 Other: Voiding Method Urinal # Voids 1 # Bowel Movements 1 Weight 99.79 kg - Constitutional General appearance: Present: average body habitus, cooperative, no acute distress - EENT Eyes: Present: anicteric sclerae, EOMI ENT: Present: hearing grossly normal - Respiratory Respiratory: bilateral: CTA - Cardiovascular Heart sounds: normal: S1, S2 - Peripheral edema leg Peripheral Edema: bilateral: Trace - Gastrointestinal General gastrointestinal: Present: soft - Neurologic Neurologic: Present: CNII-XII intact - Musculoskeletal Musculoskeletal: Present: generalized weakness - Psychiatric Psychiatric: Present: A&O x's 3, appropriate affect, intact judgment & insight Results CBC & Chem 7: 11/01/19 13:28 11/01/19 13:28 Labs: Abnormal Lab Results - Last 24 Hours (Table) 11/01/19 11/01/19 Range/Units 13:28 13:28 RBC 2.95 L (4.30-5.90) m/uL Hgb 9.3 L (13.0-17.5) gm/dL Hct 28.9 L (39.0-53.0) % RDW 17.9 H (11.5-15.5) % Lymphocytes # 0.2 L (1.0-4.8) k/uL Sodium 136 L (137-145) mmol/L BUN 31 H (9-20) mg/dL Glucose 121 H (74-99) mg/dL Calcium 7.4 L (8.4-10.2) mg/dL ALT 84 H (4-49) U/L Total Protein 10.7 H (6.3-8.2) g/dL Albumin 2.9 L (3.5-5.0) g/dL Assessment and Plan Plan: Assessment and Plan: Multiple Myeloma - Recent Diagnosis - [place] at diagnosis 471, paraprotein at diagnosis 7.74 g/dl. Pt has a history of MGUS many years ago. - Presacral mass biopsy positive for plasma cell completed on 10/19/19 - Positive metastatic disease bone - Status Post Rad Onc presacral mass, initiated on 10/18 - with good response - Now with pain on Right lower back (See Below for new intervention) Status Post Aredia, renal dose adjusted given on 10/22/19 New Right Sided Back pain - Repeat MRI of Lumbar Spine - Radiaiton oncology asked to evaluate again - Pain Management with bowel regimen - Dexamethasone with PPI GARY (acute kidney injury) -Resolved - Hx of renal cancer-type unknown-partial nephrectomy. Anemia Anemia of malignancy/inflammation, all studies low with significantly elevated ferritin. No iron. Hgb stable, no transfusion today. Use irradiated blood products if needed History of renal cell carcinoma Treated by Dr. Verdugo at [facility]. Plan: - MRI of Lumbar Spine - Dex TID with PPI - Radiation onc consult Doctor attests: I performed a history and physical examination of this patient, developed impression and plan of care, discussed with dictator. I agree with dictators note, documented as a scribe
[2019-11-02] MEDS: SODIUM CHLORIDE 0.9% 1,000 ML IV SCH ×2 (04:47→11:23)
[2019-11-02 06:13] LABS: Anisocytosis Slight; Basophils % (A) 0 %; Eosinophils # (A) 0.1 k/uL (0-0.7); Eosinophils % (A) 1 %; HCT 27.3 % (39.0-53.0); HGB 8.7 gm/dL (13.0-17.5); Hypochromasia Slight; Lymphocytes # (A) 0.1 k/uL (1.0-4.8); Lymphocytes % (A) 3 %; MCH 31.7 pg (25.0-35.0); MCHC 31.9 g/dL (31.0-37.0); MCV 99.4 fL (80.0-100.0); Macrocytosis Slight; Mean Platelet Volume 8.8; Monocytes # (A) 0.2 k/uL (0-1.0); Monocytes % (A) 3 %; Neutrophils # (A) 5.1 k/uL (1.3-7.7); Neutrophils % (A) 93 %; Platelet Count 161 k/uL (150-450); RBC 2.75 m/uL (4.30-5.90); RDW 18.2 % (11.5-15.5); WBC 5.4 k/uL (3.8-10.6)
[2019-11-02 06:55] LABS: ALT 72 U/L (4-49); AST 31 U/L (17-59); African American GFR (CKD) >90 (>60 ml/min/1.73 sqM); Albumin 2.7 g/dL (3.5-5.0); Alkaline Phosphatase 109 U/L (38-126); Anion Gap 2 mmol/L; Blood Urea Nitrogen 35 mg/dL (9-20); Calcium 7.4 mg/dL (8.4-10.2); Carbon Dioxide 26 mmol/L (22-30); Chloride 105 mmol/L (98-107); Glucose 151 mg/dL (74-99); Non-African American GFR(CKD) 87 (>60 ml/min/1.73 sqM); Potassium 4.7 mmol/L (3.5-5.1); Sodium 133 mmol/L (137-145); Total Bilirubin 0.6 mg/dL (0.2-1.3); Total Protein 9.9 g/dL (6.3-8.2)
[2019-11-02] MEDS: DEXAMETHASONE SOD PHOSPHATE 4 MG/ML 1 ML VIAL IV SCH ×3 (08:16→23:36)
[2019-11-02] MEDS: PANTOPRAZOLE 40 MG TABLET PO SCH ×2 (08:16→17:31)
[2019-11-02] MEDS: GABAPENTIN 400 MG CAP PO SCH ×3 (08:17→21:43)
[2019-11-02] MEDS: LISINOPRIL 20 MG TAB PO SCH (08:17)
[2019-11-02] MEDS: METOPROLOL SUCCINATE (ER) 25 MG TAB.ER.24H PO SCH (08:17)
[2019-11-02] MEDS: NAPROXEN 250 MG TAB PO SCH ×3 (08:17→21:43)
[2019-11-02] MEDS: SENNOSIDES 8.6 MG TAB PO SCH ×2 (08:17→21:43)
[2019-11-02] MEDS: amLODIPine 10 MG TAB PO SCH (08:17)
[2019-11-02] MEDS: PRAVASTATIN SODIUM 20 MG TAB PO SCH (08:17)
[2019-11-02] MEDS: MORPHINE SULFATE ER 15 MG TABLET PO SCH ×2 (08:18→17:30)
[2019-11-02] MEDS: ENOXAPARIN 40 MG/0.4 ML SYRINGE SQ SCH (08:18)
[2019-11-02] MEDS: traMADol 50 MG TAB PO SCH (09:38)
[2019-11-02] MEDS: LIDOCAINE 5% PATCH TOPICAL SCH (12:27)
--- NOTE | 2019-11-02 15:00 | P.PN ---
Subjective Progress Note Date: 11/02/19 Principal diagnosis: Multiple Myeloma He still is unable to stand or walk since admission, pain is significant. He is moving bowels and can feel when he has to urinate this admission whereas last admission this sensation was limited. This admission the complaint is more on right side, lumbar MRI did not reveal new findings, will need to evaluate lower to ensure no pathological fracture or new lesions as he does have an aggressive myeloma with extensive bone mets. Long acting MS contin was initiated and discussed with primary team. He states prior to MRI of lumbar spine he received a medication that "really worked" for pain and allowing him to lay flat. I will try to see what he received so we can add prior to next mri. Objective - Vital Signs Vital signs: Vital Signs Temp 98.1 F 11/02/19 12:09 Pulse 88 11/02/19 12:09 Resp 17 11/02/19 12:09 BP 146/76 11/02/19 12:09 Pulse Ox 99 11/02/19 12:09 Intake & Output 11/01/19 11/02/19 11/02/19 18:59 06:59 18:59 Intake Total 800 540 Output Total 375 1050 Balance 425 -510 Weight 99.79 kg Intake: Intake, IV Titration 800 Amount Sodium Chloride 0.9% 1, 800 000 ml @ 100 mls/hr IV . Q10H [facility] Rx#:[id number] Oral 540 Output: Urine 375 1050 Other: Voiding Method Urinal Urinal # Voids 2 # Bowel Movements 2 - Exam - Constitutional General appearance: Present: average body habitus, cooperative, no acute distress - EENT Eyes: Present: anicteric sclerae, EOMI ENT: Present: hearing grossly normal - Respiratory Respiratory: bilateral: CTA - Cardiovascular Heart sounds: normal: S1, S2 - Peripheral edema leg Peripheral Edema: bilateral: Trace - Gastrointestinal General gastrointestinal: Present: soft - Neurologic Neurologic: Present: CNII-XII intact - Musculoskeletal Musculoskeletal: Present: generalized weakness - Psychiatric Psychiatric: Present: A&O x's 3, appropriate affect, intact judgment & insight - Labs CBC & Chem 7: 11/02/19 06:01 11/02/19 06:01 Labs: Abnormal Lab Results - Last 24 Hours (Table) 11/02/19 11/02/19 Range/Units 06:01 06:01 RBC 2.75 L (4.30-5.90) m/uL Hgb 8.7 L (13.0-17.5) gm/dL Hct 27.3 L (39.0-53.0) % RDW 18.2 H (11.5-15.5) % Lymphocytes # 0.1 L (1.0-4.8) k/uL Sodium 133 L (137-145) mmol/L BUN 35 H (9-20) mg/dL Glucose 151 H (74-99) mg/dL Calcium 7.4 L (8.4-10.2) mg/dL ALT 72 H (4-49) U/L Total Protein 9.9 H (6.3-8.2) g/dL Albumin 2.7 L (3.5-5.0) g/dL Assessment and Plan Plan: Assessment and Plan: Multiple Myeloma - Recent Diagnosis - [place] at diagnosis 471, paraprotein at diagnosis 7.74 g/dl. Pt has a history of MGUS many years ago. - Presacral mass biopsy positive for plasma cell completed on 10/19/19 - Positive metastatic disease bone - Status Post Rad Onc presacral mass, initiated on 10/18 - with good response - Now with pain on Right lower back (See Below for new intervention) Status Post Aredia, renal dose adjusted given on 10/22/19 - Plan to start induction with RVD and Zometa (or Xgeva) after discharge. New Right Sided Back pain - Repeat MRI of Lumbar Spine - Radiaiton oncology asked to evaluate again - Pain Management with bowel regimen - Dexamethasone with PPI GARY (acute kidney injury) -Resolved - Hx of renal cancer-type unknown-partial nephrectomy. Anemia Anemia of malignancy/inflammation, all studies low with significantly elevated ferritin. No iron. Hgb stable, no transfusion today. Use irradiated blood products if needed History of renal cell carcinoma Treated by Dr. Verdugo at [facility]. Plan 11/02/19: - MRI of Pelvis and Right hip to further evaluate for pathological fracture - Continue Dex TID with PPI - Radiation onc following - Supportive care with pain management and bowel regimen
--- NOTE | 2019-11-02 16:04 | P.CONS ---
History of Present Illness - Reason for Consult Consult date: 11/02/19 bone pain - myeloma Requesting physician: Fredy Hatch - Chief Complaint right buttock severe pain - History of Present Illness The patient is a 64-year-old male with a history of recently diagnosed multiple myeloma. He initially presented with severe left sacral pain, finishing a course of palliative radiotherapy on October 24. He now presents secondary to significant progressive right buttock discomfort, limiting his ability to ambulate. The patient reports that following his recent course of radiotherapy, his pain had improved quite a bit. He still had a small amount of left lower back discomfort, but he was able to ambulate around the house without assistance, but did use a walker for more than short distances. He states however over the past few days, he experienced a sudden onset of pain starting in his right buttock radiating down to the knee. He does not recall any trauma or inciting incident. He has not had any difficulty with bladder or bowel control, and reports no numbness or tingling of the sacral area or bilateral extremities. At the time of our consultation, he is laying flat in bed. He states that after he inclines to sit up, the pain becomes excruciating. He states he is unable to sit up. When the patient was brought down to our department for CT simulation and a wheelchair, he was in excruciating pain which only resolved upon laying flat. He did undergo an MRI of the L-spine, which showed no acute change. Review of Systems Constitutional: Denies chills, Denies fatigue Eyes: denies blurred vision Ears, nose, mouth and throat: Denies hoarseness Cardiovascular: Denies chest pain, Denies edema Respiratory: Denies cough, Denies dyspnea Gastrointestinal: Denies BRBPR, Denies change in bowel habits Genitourinary: Denies incontinence, Denies urinary frequency, Denies urinary hesitancy, Denies urinary retention Musculoskeletal: Reports low back pain Integumentary: Denies rash Neurological: Denies burning pain, Denies confusion, Denies tingling Psychiatric: Denies anxiety Past Medical History Past Medical History: Cancer, Hypertension Additional Past Medical History / Comment(s): back pain, partial nephrectomy, bilat knee replacement, R sided kidney ca, multiple myeloma History of Any Multi-Drug Resistant Organisms: None Reported Past Surgical History: Appendectomy, Joint Replacement, Orthopedic Surgery Additional Past Surgical History / Comment(s): carpel tunnel, cataract, partial kidney removal right side. Past Psychological History: No Psychological Hx Reported Smoking Status: Never smoker Past Alcohol Use History: None Reported Past Drug Use History: None Reported - Past Family History Father Additional Family Medical History / Comment(s): prostate cancer mets to bone Medications and Allergies Home Medications Medication Instructions Recorded Confirmed Type Albuterol Nebulized [Ventolin 2.5 mg INHALATION RT-TID PRN 10/16/19 10/31/19 History Nebulized] Fluticasone Nasal [place] [Flonase 1 spray EA NOSTRIL HS 10/16/19 10/31/19 History Nasal [place]] Furosemide [Lasix] 20 mg PO DAILY 10/16/19 10/31/19 History Pravastatin Sodium [Pravachol] 20 mg PO DAILY 10/16/19 10/31/19 History traMADol HCL 50 mg PO BID 10/16/19 10/31/19 History amLODIPine BESYLATE/BENAZEPRIL 1 cap PO DAILY #90 cap 10/18/19 10/31/19 Rx [Lotrel 10-20 MG] Metoprolol Succinate (ER) [Toprol 25 mg PO DAILY #90 tab.er.24h 10/19/19 10/31/19 Rx XL] Pantoprazole [Protonix] 40 mg PO BID #60 tablet.dr 10/19/19 10/31/19 Rx Sennosides [Senokot] 8.6 mg PO BID #30 tab 10/21/19 10/31/19 Rx Gabapentin [Neurontin] 400 mg PO TID 10/31/19 10/31/19 History HYDROcodone/APAP 5-325MG [[place] 1 tab PO Q6H PRN 10/31/19 10/31/19 History 5-325] Allergies Allergy/AdvReac Type Severity Reaction Status Date / Time hydrocodone [From [place]] Allergy Unknown Verified 10/31/19 18:11 Physical Exam Vitals: Vital Signs Temp Pulse Pulse Resp BP Pulse Ox 11/02/19 12:09 98.1 F 88 17 146/76 99 11/02/19 04:47 97.6 F 74 18 119/67 99 11/01/19 21:14 98 F 86 18 133/73 99 Intake and Output 11/02/19 11/02/19 11/02/19 06:59 14:59 22:59 Intake Total 540 Output Total 1050 Balance -510 Intake: Oral 540 Output: Urine 1050 Other: Voiding Method Urinal Urinal # Voids 2 # Bowel Movements 2 - Constitutional General appearance: mild distress - EENT Eyes: EOMI, PERRLA ENT: hearing grossly normal - Neck Neck: no lymphadenopathy - Respiratory Respiratory: bilateral: CTA - Cardiovascular Rhythm: regular - Gastrointestinal General gastrointestinal: no distended, no tenderness - Integumentary Integumentary: no calor, no cellulitis - Neurologic Neurologic: CNII-XII intact - Musculoskeletal Musculoskeletal: no gait normal, strength equal bilaterally - Psychiatric Psychiatric: A&O x's 3, appropriate affect Results CBC & Chem 7: 11/02/19 06:01 11/02/19 06:01 Labs: Abnormal Lab Results - Last 24 Hours (Table) 11/02/19 11/02/19 Range/Units 06:01 06:01 RBC 2.75 L (4.30-5.90) m/uL Hgb 8.7 L (13.0-17.5) gm/dL Hct 27.3 L (39.0-53.0) % RDW 18.2 H (11.5-15.5) % Lymphocytes # 0.1 L (1.0-4.8) k/uL Sodium 133 L (137-145) mmol/L BUN 35 H (9-20) mg/dL Glucose 151 H (74-99) mg/dL Calcium 7.4 L (8.4-10.2) mg/dL ALT 72 H (4-49) U/L Total Protein 9.9 H (6.3-8.2) g/dL Albumin 2.7 L (3.5-5.0) g/dL Assessment and Plan Plan: The patient is a 64-year-old male with a history of recently diagnosed multiple myeloma. He initially presented with severe left sacral pain, finishing a course of palliative radiotherapy on October 24. He now presents secondary to significant progressive right buttock discomfort, limiting his ability to ambulate. 1. Right buttock pain: This is likely due to the patient's underlying myeloma. Based on my CT simulation images, the patient appears to have developed a sacral insufficiency fracture likely contributing to his pain. MRI of the sacrum is pending. It is unlikely the patient would be recommended any intervention surgically, therefore I discussed with the patient palliative radiotherapy. The patient previously underwent palliative radiotherapy to a large left sacral metastasis, however much of the right hemisacrum was not treated. I explained to the patient I would recommend a 5 fraction course, and we will attempt to start his radiotherapy tomorrow after his MRI. The patient had significant palliative response to his left-sided pain, and he is likely to benefit on the right side as well. Of note, the patient is unable to sit up in bed or sit in a chair without excruciating pain. He is uncertain he will be able to take care of himself at home. I recommend PT evaluation, as the patient may require ROMAN. 2. Multiple Myeloma: This is a new diagnosis, and the patient has not yet started his systemic therapy. The patient was planning to meet with oncology as an outpatient, however he missed that appointment secondary to his hospitalization. Recommendations per medical oncology for systemic therapy. Time with Patient: Greater than 30
[2019-11-02] MEDS: FLUTICASONE 50MCG/SPRAY NASAL 16GM EA NOSTRIL SCH (21:42)
[2019-11-02] MEDS: MORPHINE SULFATE ER 30 MG TABLET PO SCH (21:43)
--- NOTE | 2019-11-02 22:34 | P.PN ---
Progress Note - Text Progress Note Date: 11/02/19 Chief Complaint: Increasing low back pain History of presenting complaint: This is a pleasant 64-year-old patient of Dr. Pro Serrano. About 2 years ago patient underwent partial nephrectomy on the right side for adrenal tumor.-by Dr. Quinteros.. On October 15 patient presented to the hospital here with progressively low back pain. Some weakness in the legs. No change in bowel or urine pattern. No fever no chills. Pain was becoming progressively worse. Computed tomogr aphy scan in the ER showed extensive osteolytic changes of the lumbar spine and the pelvis with widespread osteolytic disease. A significant progression compared to the previous computed tomography scan. No evidence of compression fracture. Presacral mass. Diagnosed with multiple myeloma. Sacral mass biopsy was done on October 18.-Came back showing plasma cell neoplasm admission blood clot. Palli ative radiation treatment was started . Blood cultures came back positive for alphahemolytic streptococcus. She was discharged on October 20. Patient was due to start treatment shortly and was due to come in for discussion. Patient's pain has become rather significant.Even difficult to walk. Uncontrolled. No change in urine pattern. Some constipation. Able to tolerate some diet. No fever no chills Today-pain is a bit better. Still hurts in the lower back on the right side when he tries to move. Review of systems: Was done for constitutional, cardiovascular, GI, pulmonary. relevant finding as above Active Medications Acetaminophen (Tylenol Tab) 650 mg PO Q6HR PRN PRN Reason: Mild Pain or Fever > 100.5 Hydrocodone Bitart/Acetaminophen ([place] 5-325) 1 each PO Q6H PRN PRN Reason: Pain Albuterol Sulfate (Ventolin Nebulized) 2.5 mg INHALATION RT-TID PRN PRN Reason: Shortness Of Breath Amlodipine Besylate (Norvasc) 10 mg PO DAILY [facility] Last Admin: 11/02/19 08:17 Dose: 10 mg Documented by: Dexamethasone Sodium Phosphate (Decadron) 4 mg IV Q8HR [facility] Last Admin: 11/02/19 17:32 Dose: 4 mg Documented by: Enoxaparin Sodium (Lovenox) 40 mg SQ DAILY [facility] Last Admin: 11/02/19 08:18 Dose: 40 mg Documented by: Fluticasone Propionate (Flonase Nasal [place]) 1 spray EA NOSTRIL [facility] Last Admin: 11/02/19 21:42 Dose: 1 spray Documented by: Gabapentin (Neurontin) 400 mg PO TID [facility] Last Admin: 11/02/19 21:43 Dose: 400 mg Documented by: Lidocaine (Lidoderm) 1 patch TOPICAL DAILY [facility] Last Admin: 11/02/19 12:27 Dose: 1 patch Documented by: Lisinopril (Zestril) 20 mg PO DAILY [facility] Last Admin: 11/02/19 08:17 Dose: 20 mg Documented by: Metoprolol Succinate (Toprol Xl) 25 mg PO DAILY [facility] Last Admin: 11/02/19 08:17 Dose: 25 mg Documented by: Morphine Sulfate (Morphine Sulfate (Inj)) 4 mg IV Q4HR PRN PRN Reason: Severe Pain Last Admin: 11/02/19 13:49 Dose: 4 mg Documented by: Morphine Sulfate (Ms Contin) 30 mg PO Q12HR [facility] Last Admin: 11/02/19 21:43 Dose: 30 mg Documented by: Naloxone HCl (Narcan) 0.2 mg IV Q2M PRN PRN Reason: Opioid Reversal Naproxen (Naprosyn) 250 mg PO TID [facility] Last Admin: 11/02/19 21:43 Dose: 250 mg Documented by: Ondansetron HCl (Zofran) 4 mg IVP Q8HR PRN PRN Reason: Nausea And Vomiting Pantoprazole Sodium (Protonix) 40 mg PO AC-BID [facility] Last Admin: 11/02/19 17:31 Dose: 40 mg Documented by: Pravastatin Sodium (Pravachol) 20 mg PO DAILY [facility] Last Admin: 11/02/19 08:17 Dose: 20 mg Documented by: Senna (Senokot) 8.6 mg PO BID [facility] Last Admin: 11/02/19 21:43 Dose: 8.6 mg Documented by: Physical examination: VITAL SIGNS: 98.1, 88, 17, 146/76, 99% on 2 L GENERAL: BMI 31.6, laying in bed, awake EYES: Pupils equal. Conjunctiva normal. HEENT: External appearance of nose and ears normal, oral cavity grossly normal. NECK: JVD not raised; masses not palpable. HEART: First and second heart sounds are normal; no edema. LUNGS: Respiratory rate normal; clear to auscultation. ABDOMEN: Soft, nontender, liver spleen not palpable, no masses palpable. PSYCH: Alert and oriented x3; mood and affect normal. INVESTIGATIONS, reviewed in the clinical context: White count 5.4 hemoglobin 8.7 potassium 4.7 creatinine 0.9 to Previous testing White count 4.9 hemoglobin 9.3 platelets were 67 potassium 4.6 creatinine 0.97 albumin 2.9 Lumbar spine x-ray results noted-DJD changes and lytic lesions Assessment: - multiple myeloma. Including positive in the sacral mass biopsy-causing increasingly low back pain possibly neuropathic with radiation -Gait dysfunction from severe pain arthritis multiple myeloma -Normocytic anemia-from multiple myeloma -Hyperlipidemia -Multiple sites of DJD -Hypoalbuminemia-acute phase reactant -Essential hypertension -Acute constipation from decreased activity and pain medications Plan: Discussed patient's pain management with him in detail. MS Contin does be increased to 30 mg every 12. Lidoderm patch is being added. Oncology looking at getting a repeat MRI. Care was discussed with the patient.
[2019-11-03] MEDS: ENOXAPARIN 40 MG/0.4 ML SYRINGE SQ SCH (07:57)
[2019-11-03] MEDS: LIDOCAINE 5% PATCH TOPICAL SCH (07:58)
[2019-11-03] MEDS: PRAVASTATIN SODIUM 20 MG TAB PO SCH (07:59)
[2019-11-03] MEDS: SENNOSIDES 8.6 MG TAB PO SCH ×2 (07:59→21:18)
[2019-11-03] MEDS: DEXAMETHASONE SOD PHOSPHATE 4 MG/ML 1 ML VIAL IV SCH ×2 (07:59→16:59)
[2019-11-03] MEDS: NAPROXEN 250 MG TAB PO SCH ×3 (08:00→21:18)
[2019-11-03] MEDS: PANTOPRAZOLE 40 MG TABLET PO SCH ×2 (08:00→16:58)
[2019-11-03] MEDS: amLODIPine 10 MG TAB PO SCH (08:00)
[2019-11-03] MEDS: GABAPENTIN 400 MG CAP PO SCH ×3 (08:01→21:18)
[2019-11-03] MEDS: LISINOPRIL 20 MG TAB PO SCH (08:01)
[2019-11-03] MEDS: MORPHINE SULFATE ER 30 MG TABLET PO SCH ×2 (08:01→21:18)
[2019-11-03] MEDS: METOPROLOL SUCCINATE (ER) 25 MG TAB.ER.24H PO SCH (08:02)
--- NOTE | 2019-11-03 12:23 | P.PN ---
Subjective Progress Note Date: 11/03/19 Principal diagnosis: Multiple Myeloma Patient tearful today. He is unable to sit up or walk without severe pain, but can make pain go away by positioning. He did go to radiation with Dr. Rubio today and further evaluation with MRI pelvis and right hip Objective - Vital Signs Vital signs: Vital Signs Temp 97.9 F 11/03/19 04:19 Pulse 81 11/03/19 04:19 Resp 18 11/03/19 04:19 BP 123/66 11/03/19 04:19 Pulse Ox 97 11/03/19 04:19 Intake & Output 11/02/19 11/03/19 11/03/19 18:59 06:59 18:59 Intake Total 540 Output Total 1050 700 Balance -510 -700 Intake: Oral 540 Output: Urine 1050 700 Other: Voiding Method Urinal Urinal Urinal - Exam - Constitutional General appearance: Present: average body habitus, cooperative, no acute distress - EENT Eyes: Present: anicteric sclerae, EOMI ENT: Present: hearing grossly normal - Respiratory Respiratory: bilateral: CTA - Cardiovascular Heart sounds: normal: S1, S2 - Peripheral edema leg Peripheral Edema: bilateral: Trace - Gastrointestinal General gastrointestinal: Present: soft - Neurologic Neurologic: Present: CNII-XII intact - Musculoskeletal Musculoskeletal: Present: generalized weakness - Psychiatric Psychiatric: Present: A&O x's 3, appropriate affect, intact judgment & insight - Labs CBC & Chem 7: 11/02/19 06:01 11/02/19 06:01 Assessment and Plan Plan: Assessment and Plan: Multiple Myeloma - Recent Diagnosis - [place] light chain at diagnosis 471, paraprotein at diagnosis 7.74 g/dl. Pt has a history of MGUS many years ago. - Presacral mass biopsy positive for plasma cell completed on 10/19/19 - Positive metastatic disease bone - Status Post Rad Onc presacral mass, initiated on 10/18 - with good response - Now with pain on Right lower back (See Below for new intervention) Status Post Aredia, renal dose adjusted given on 10/22/19 - Plan to start induction with RVD and Zometa (or Xgeva) after discharge. New Right Sided Back pain - Repeat MRI of Lumbar Spine - Radiaiton oncology asked to evaluate again - Pain Management with bowel regimen - Dexamethasone with PPI - Flexeril ATC GARY (acute kidney injury) -Resolved - Hx of renal cancer-type unknown-partial nephrectomy. Anemia Anemia of malignancy/inflammation, all studies low with significantly elevated ferritin. No iron. Hgb stable, no transfusion today. Use irradiated blood products if needed History of renal cell carcinoma Treated by Dr. Verdugo at [facility]. Plan 11/03/19: - MRI of Pelvis and Right hip to further evaluate for pathological fracture - Await results - Add flexeril - Discussed with radiation oncology and concern for fracture, Dr. Gamez to evaluate. - Continue Dex TID with PPI - Radiation onc following - Daily CBC/CMP, Ordered for repeat today - Supportive care with pain management and bowel regimen Discussed above with primary team and patients on phone and Dr. Rubio
--- NOTE | 2019-11-03 14:15 | MR ---
MR right hip and pelvis with and without contrast HISTORY: Metastatic disease Multiplanar multisequence and postcontrast images obtained through the pelvis with small [id number] images through the right hip, patient received 10 cc Gadavist IV Correlation to MR lumbar spine 11/01/2019, CT biopsy 10/19/2019, bone survey 10/27/2019 Heterogeneous marrow signal is diffuse involving the pelvis and right hip, lumbar spine. No evident f racture. No sizable hip joint effusion. Degenerative disc changes also noted in the lumbar spine. No asymmetric marrow signal changes within the proximal femurs to suggest fracture. Posterior left sacru m shows signal change consistent with patient's lytic lesion seen on CT and prior biopsy. The prostate is enlarged and shows an inferior impression on the urinary bladder. No evident adenopat hy. No free fluid noted within the pelvis. IMPRESSION: Diffuse marrow signal changes are consistent with metastatic disease. No fracture is evid ent.
[2019-11-03] MEDS: CYCLOBENZAPRINE 10 MG TAB PO SCH ×2 (16:58→21:18)
[2019-11-03 17:23] LABS: Anisocytosis Slight; Basophils % (A) 0 %; Eosinophils # (A) 0.1 k/uL (0-0.7); Eosinophils % (A) 1 %; HCT 29.8 % (39.0-53.0); HGB 9.3 gm/dL (13.0-17.5); Hypochromasia Slight; Lymphocytes # (A) 0.2 k/uL (1.0-4.8); Lymphocytes % (A) 3 %; MCH 30.7 pg (25.0-35.0); MCHC 31.3 g/dL (31.0-37.0); MCV 98.3 fL (80.0-100.0); Macrocytosis Slight; Mean Platelet Volume 8.6; Monocytes # (A) 0.2 k/uL (0-1.0); Monocytes % (A) 3 %; Neutrophils # (A) 5.6 k/uL (1.3-7.7); Neutrophils % (A) 92 %; Platelet Count 170 k/uL (150-450); RBC 3.03 m/uL (4.30-5.90); RDW 17.9 % (11.5-15.5); WBC 6.1 k/uL (3.8-10.6)
[2019-11-03 17:58] LABS: Albumin 3.3 g/dL (3.5-5.0); Calcium 8.6 mg/dL (8.4-10.2); Potassium 4.9 mmol/L (3.5-5.1); Total Bilirubin 0.6 mg/dL (0.2-1.3)
[2019-11-03 18:13] LABS: Total Protein 12.3 g/dL (6.3-8.2)
--- NOTE | 2019-11-03 18:25 | P.PN ---
Subjective Progress Note Date: 11/03/19 [place] of care today Patient is a 64-year-old male who was admitted on October [address] Bishop's [facility]. He has a history of MGUS and 2 years ago treated for a right adrenal tumor. Patient was hospitalized on October 15 for progressive low back pain and was diagnosed with widespread osteolytic disease. He underwent sacral mass biopsy on October 18 that showed plasma cell neoplasm. Patient was discharged on October 20 he has received palliative radiation on the right with good response. Patient was also treated with Aredia on October 21 presented to the emergency room on the for severe back pain Objective - Vital Signs Vital signs: Vital Signs Temp 98 F 11/03/19 15:10 Pulse 80 11/03/19 15:10 Resp 18 11/03/19 15:10 BP 128/68 11/03/19 15:10 Pulse Ox 94 L 11/03/19 15:10 Intake & Output 11/02/19 11/03/19 11/03/19 18:59 06:59 18:59 Intake Total 540 Output Total 1050 700 Balance -510 -700 Intake: Oral 540 Output: Urine 1050 700 Other: Voiding Method Urinal Urinal Urinal # Voids 2 # Bowel Movements 1 - Constitutional General appearance: Present: no acute distress (Lying still) - Respiratory Respiratory: bilateral: CTA - Cardiovascular Rhythm: regular - Gastrointestinal General gastrointestinal: Present: normal bowel sounds - Integumentary Integumentary: Present: normal - Psychiatric Psychiatric: Present: appropriate affect - Labs CBC & Chem 7: 11/03/19 17:09 11/03/19 17:09 Labs: Abnormal Lab Results - Last 24 Hours (Table) 11/03/19 11/03/19 Range/Units 17:09 17:09 RBC 3.03 L (4.30-5.90) m/uL Hgb 9.3 L (13.0-17.5) gm/dL Hct 29.8 L (39.0-53.0) % RDW 17.9 H (11.5-15.5) % Lymphocytes # 0.2 L (1.0-4.8) k/uL Sodium 135 L (137-145) mmol/L BUN 40 H (9-20) mg/dL Glucose 165 H (74-99) mg/dL ALT 71 H (4-49) U/L Alkaline Phosphatase 132 H (38-126) U/L Total Protein 12.3 H (6.3-8.2) g/dL Albumin 3.3 L (3.5-5.0) g/dL Assessment and Plan (1) Uncontrolled pain Narrative/Plan: Secondary to metastatic disease. Patient had a MRI of the pelvic and right hip that did not show any acute fracture but showed widely metastatic disease. The patient states that when he is lying still he does not have pain however he has excruciating pain with movement. He underwent radiation today. The patient's would like him to be transferred to [facility]. She stated that she spoke to him on pathology and oncology clinic and they stated that they had a bed for him. She would like us to call to arrange a transfer tomorrow. The telephone number that was provided is [phone]. Oncology is following appreciated their input Current Visit: Yes Status: Acute Code(s): R52 - PAIN, UNSPECIFIED SNOMED Code(s): 33848335363193131 (2) GARY (acute kidney injury) Narrative/Plan: Resolved Current Visit: No Status: Acute Priority: High Code(s): N17.9 - ACUTE KIDNEY FAILURE, UNSPECIFIED SNOMED Code(s): 27179498 (3) Anemia Narrative/Plan: We will transfuse for hemoglobin less than 7 Current Visit: No Status: Acute Priority: High Code(s): D64.9 - ANEMIA, UNSPECIFIED SNOMED Code(s): 101613282 (4) Multiple myeloma Narrative/Plan: Appreciate oncology input further note induction RVD on Zometa plan after discharge continue steroids Current Visit: No Status: Acute Priority: High Code(s): C90.00 - MULTIPLE MYELOMA NOT HAVING ACHIEVED REMISSION SNOMED Code(s): 908287448
[2019-11-03] MEDS: FLUTICASONE 50MCG/SPRAY NASAL 16GM EA NOSTRIL SCH (21:18)
[2019-11-03 23:35] LABS: Protein, Total 11.3 g/dL (6.2-8.2)
[2019-11-04] MEDS: DEXAMETHASONE SOD PHOSPHATE 4 MG/ML 1 ML VIAL IV SCH ×3 (00:01→17:04)
[2019-11-04 06:33] LABS: Anisocytosis Slight; Basophils % (A) 0 %; Eosinophils % (A) 1 %; HCT 26.4 % (39.0-53.0); HGB 8.4 gm/dL (13.0-17.5); Hypochromasia Slight; Lymphocytes # (A) 0.1 k/uL (1.0-4.8); Lymphocytes % (A) 3 %; MCH 31.3 pg (25.0-35.0); MCHC 31.8 g/dL (31.0-37.0); MCV 98.6 fL (80.0-100.0); Macrocytosis Slight; Mean Platelet Volume 8.3; Monocytes # (A) 0.2 k/uL (0-1.0); Monocytes % (A) 4 %; Neutrophils # (A) 4.9 k/uL (1.3-7.7); Neutrophils % (A) 92 %; Platelet Count 165 k/uL (150-450); RBC 2.68 m/uL (4.30-5.90); RDW 17.9 % (11.5-15.5); WBC 5.3 k/uL (3.8-10.6)
[2019-11-04 06:46] LABS: Calcium 8.5 mg/dL (8.4-10.2); Potassium 4.9 mmol/L (3.5-5.1); Total Bilirubin 0.5 mg/dL (0.2-1.3); Total Protein 10.4 g/dL (6.3-8.2)
[2019-11-04] MEDS: GABAPENTIN 400 MG CAP PO SCH ×3 (08:10→22:08)
[2019-11-04] MEDS: PANTOPRAZOLE 40 MG TABLET PO SCH ×2 (08:10→17:04)
[2019-11-04] MEDS: ENOXAPARIN 40 MG/0.4 ML SYRINGE SQ SCH (08:10)
[2019-11-04] MEDS: LISINOPRIL 20 MG TAB PO SCH (08:10)
[2019-11-04] MEDS: METOPROLOL SUCCINATE (ER) 25 MG TAB.ER.24H PO SCH (08:10)
[2019-11-04] MEDS: SENNOSIDES 8.6 MG TAB PO SCH (08:10)
[2019-11-04] MEDS: amLODIPine 10 MG TAB PO SCH (08:10)
[2019-11-04] MEDS: MORPHINE SULFATE ER 30 MG TABLET PO SCH ×2 (08:10→17:05)
[2019-11-04] MEDS: CYCLOBENZAPRINE 10 MG TAB PO SCH ×3 (08:10→22:08)
[2019-11-04] MEDS: NAPROXEN 250 MG TAB PO SCH ×3 (10:07→22:09)
[2019-11-04] MEDS: PRAVASTATIN SODIUM 20 MG TAB PO SCH (10:08)
[2019-11-04] MEDS: LIDOCAINE 5% PATCH TOPICAL SCH (10:09)
--- NOTE | 2019-11-04 12:22 | P.PN ---
Subjective Progress Note Date: 11/04/19 Principal diagnosis: Right hip pain Patient was seen and examined. No acute events overnight. Patient reports 4-5 out of 10 severity right-sided hip pain that is currently under control. She states that his pain gets aggravated with any sort of weightbearing or movement and can easily be a 10 out of 10. Patient states that his pain has improved since admission. He denies any chest pain, shortness of breath or palpitations. No nausea or vomiting. No fever or chills. No bladder or bowel incontinence. No saddle anesthesia. Objective - Vital Signs Vital signs: Vital Signs Temp 97.7 F 11/04/19 04:19 Pulse 89 11/04/19 04:19 Resp 20 11/04/19 04:19 BP 135/74 11/04/19 04:19 Pulse Ox 97 11/04/19 04:19 Intake & Output 11/03/19 11/04/19 11/04/19 18:59 06:59 18:59 Intake Total 880 Balance 880 Intake: Oral 880 Other: Voiding Method Urinal Urinal Urinal # Voids 2 2 # Bowel Movements 1 - Exam General: [non toxic], [no distress], [appears at stated age] Derm: [warm], [dry] Head: [atraumatic], [normocephalic], [symmetric] Eyes: [EOMI], [no lid lag], [anicteric sclera] Mouth: [no lip lesion], [mucus membranes moist] Cardiovascular: [S1S2 reg], [no murmur], [positive DP pulse bilateral], Lungs: [CTA bilateral], [no rhonchi, no rales] , [no accessory muscle use] Abdominal: [soft], [ nontender to palpation], [no guarding], [no appreciable organomegaly] Ext: [no gross muscle atrophy], [no edema], [no contractures], [restricted range of motion in the right hip due to pain] Neuro: [no focal neuro deficits] Psych: [Alert], [oriented], [appropriate affect] - Labs CBC & Chem 7: 11/04/19 06:08 11/04/19 06:08 Labs: Abnormal Lab Results - Last 24 Hours (Table) 05/21/20 05/21/20 05/21/20 Range/Units 17:09 17:09 17:09 RBC 3.03 L (4.30-5.90) m/uL Hgb 9.3 L (13.0-17.5) gm/dL Hct 29.8 L (39.0-53.0) % RDW 17.9 H (11.5-15.5) % Lymphocytes # 0.2 L (1.0-4.8) k/uL Sodium 135 L (137-145) mmol/L BUN 40 H (9-20) mg/dL Glucose 165 H (74-99) mg/dL ALT 71 H (4-49) U/L Alkaline Phosphatase 132 H (38-126) U/L Total Protein 12.3 H (6.3-8.2) g/dL Total Protein (PEP) 11.3 H (6.2-8.2) g/dL Albumin 3.3 L (3.5-5.0) g/dL Free Broussard LC, Quant 63.00 H (0.33-1.94) mg/dL Free Lambda LC, Quant 0.02 L (0.57-2.63) mg/dL 11/04/19 11/04/19 Range/Units 06:08 06:08 RBC 2.68 L (4.30-5.90) m/uL Hgb 8.4 L (13.0-17.5) gm/dL Hct 26.4 L (39.0-53.0) % RDW 17.9 H (11.5-15.5) % Lymphocytes # 0.1 L (1.0-4.8) k/uL Sodium 136 L (137-145) mmol/L BUN 43 H (9-20) mg/dL Glucose 135 H (74-99) mg/dL ALT 67 H (4-49) U/L Alkaline Phosphatase (38-126) U/L Total Protein 10.4 H (6.3-8.2) g/dL Total Protein (PEP) (6.2-8.2) g/dL Albumin 3.0 L (3.5-5.0) g/dL Free Broussard LC, Quant (0.33-1.94) mg/dL Free Lambda LC, Quant (0.57-2.63) mg/dL Assessment and Plan Assessment: Intractable right hip pain secondary to metastatic disease with history of multiple myeloma Acute kidney injury Anemia Transaminitis MRI of the lumbar spine shows metastatic disease noted L2 S1 along with lytic lesions involving the right hip and pelvis. Plans: He has been started on morphine sulfate ER 30 mg by mouth twice a day along with lidocaine patch. His home medication of gabapentin has been continued. He has also been started on Flexeril as needed. He has been started on dexamethasone 4 mg IV every 8 hours. Discussed with patient and pain management, advised to use [place] as needed prior to starting any activities with physical therapy. We will consult PT and OT to work with the patient. Family requested transfer to [facility]. They do not have an accepting physician. At this time, I do not see a reason to transfer for higher level of care unless indicated by oncology. His BUN is 43. Likely related to multiple myeloma along with dehydration. Plans: Start normal saline at 75 mL per hour. Repeat BMP tomorrow morning. Hemoglobin 8.4. Normocytic. Likely related to multiple myeloma. Appears at baseline. Plans: Repeat CBC tomorrow morning. Transfuse if hemoglobin less than 7. ALT 67. Plans: Follow lipid panel. Follow acute hepatitis panel. [Patient requesting transfer to [facility]. At this point, there is no reason to transfer for higher level of care unless indicated by oncological services. Continue pain medication by also using [place] has breakthrough. Follow PT and OT recommendations. Likely DC in 2-3 days.]
[2019-11-04] MEDS ORDERED: DIAZEPAM 5 MG/ML 2 ML INJ IVP STA (12:55)
[2019-11-04] MEDS: SODIUM CHLORIDE 0.9% 1,000 ML IV SCH (13:08)
[2019-11-04] MEDS ORDERED: MORPHINE SULFATE IR 15 MG TABLET PO PRN (13:45)
--- NOTE | 2019-11-04 15:36 | P.PN ---
<Mayra Flowers - Last Filed: 11/04/19 15:19> Subjective Progress Note Date: 11/04/19 Principal diagnosis: Multiple Myeloma patient states he is noticing mild improvements, although he is still unable to move certain positions without pain. He will receive his third radiation treatment today, dosed to help symptoms through weekend. He is continuing on MS contin 30mg po, norco (without relief), and ATC flexeril. Pain services did evaluate and I have attempted to call them in regards to see if he could be a candidate for other forms of pain management (i.e. pain block or internal site treatment block) to decrease the systemic effects of the pain management but better manage pain so he can move around. He will need to be able to walk up and down three steps to go home. PT/OT is working with patient as well. I had a long (greater than 60 minute) discussion with patients and another supportive family member today. They are frustrated as this has all evolved very quickly and they do not understand this hospitalization is different then the recent one in that this is more his right side affected than left. They were very adament that the patient be transferred to [facility] today, although the transfer will not be approved as to the lack of evidence to require the higher level of care. I explained this to patients family and also to transfer prior to a holiday weekend when radiation therapy has already begun here and pain interventions have already been trialled and continuing to be trialled could potentially be more of a risk then beneficial. I recommended we develop a plan through the weekend and reviewed our goals at this moment. The goal is to get patient home but in a way the pain is tolerable he can take himself safely to and from the bathroom and sit in chair, he is not currently able to do this. There was question of possible fracture at top of sacrum within radiation oncology films, if this is the main source of this new debilitating pain this would be difficult to stabilize with pain block or brace. I did speak with ortho regarding this and unfortunately there is not a surgical intervention to help with the source of this current problem. Therefore, the goal of care is pain management and safe transfers and short ambulation. If IPR is needed post discharge that could be potentially beneficial. Patients and family understood and agree. They would like to readdress transfer if he is not showing improvements by Thursday next week and I did agree to consider at that time. Otherwise he is hemodynamically stable at this time. Objective - Vital Signs Vital signs: Vital Signs Temp 97.7 F 11/04/19 04:19 Pulse 89 11/04/19 04:19 Resp 20 11/04/19 04:19 BP 135/74 11/04/19 04:19 Pulse Ox 97 11/04/19 04:19 Intake & Output 11/03/19 11/04/19 11/04/19 18:59 06:59 18:59 Intake Total 880 150 Balance 880 150 Weight 99.79 kg Intake: Intake, IV Titration 150 Amount Sodium Chloride 0.9% 1, 150 000 ml @ 75 mls/hr IV . [id number] [facility]ILL[facility] Rx#:[id number] Oral 880 Other: Voiding Method Urinal Urinal Urinal # Voids 2 2 3 # Bowel Movements 1 - Exam - Constitutional General appearance: Present: average body habitus, cooperative, no acute distress - EENT Eyes: Present: anicteric sclerae, EOMI ENT: Present: hearing grossly normal - Respiratory Respiratory: bilateral: CTA - Cardiovascular Heart sounds: normal: S1, S2 - Peripheral edema leg Peripheral Edema: bilateral: Trace - Gastrointestinal General gastrointestinal: Present: soft - Neurologic Neurologic: Present: CNII-XII intact - Musculoskeletal Musculoskeletal: Present: generalized weakness - Psychiatric Psychiatric: Present: A&O x's 3, appropriate affect, intact judgment & insight - Labs CBC & Chem 7: 11/04/19 06:08 11/04/19 06:08 Labs: Abnormal Lab Results - Last 24 Hours (Table) 11/03/19 11/03/19 11/03/19 Range/Units 17:09 17:09 17:09 RBC 3.03 L (4.30-5.90) m/uL Hgb 9.3 L (13.0-17.5) gm/dL Hct 29.8 L (39.0-53.0) % RDW 17.9 H (11.5-15.5) % Lymphocytes # 0.2 L (1.0-4.8) k/uL Sodium 135 L (137-145) mmol/L BUN 40 H (9-20) mg/dL Glucose 165 H (74-99) mg/dL ALT 71 H (4-49) U/L Alkaline Phosphatase 132 H (38-126) U/L Total Protein 12.3 H (6.3-8.2) g/dL Total Protein (PEP) 11.3 H (6.2-8.2) g/dL Albumin 3.3 L (3.5-5.0) g/dL Free [place] LC, Quant 63.00 H (0.33-1.94) mg/dL Free [place] LC, Quant 0.02 L (0.57-2.63) mg/dL 11/04/19 11/04/19 Range/Units 06:08 06:08 RBC 2.68 L (4.30-5.90) m/uL Hgb 8.4 L (13.0-17.5) gm/dL Hct 26.4 L (39.0-53.0) % RDW 17.9 H (11.5-15.5) % Lymphocytes # 0.1 L (1.0-4.8) k/uL Sodium 136 L (137-145) mmol/L BUN 43 H (9-20) mg/dL Glucose 135 H (74-99) mg/dL ALT 67 H (4-49) U/L Alkaline Phosphatase (38-126) U/L Total Protein 10.4 H (6.3-8.2) g/dL Total Protein (PEP) (6.2-8.2) g/dL Albumin 3.0 L (3.5-5.0) g/dL Free [place] LC, Quant (0.33-1.94) mg/dL Free [place] LC, Quant (0.57-2.63) mg/dL Assessment and Plan Plan: Assessment and Plan: Multiple Myeloma - Recent Diagnosis - [place] light chain at diagnosis 471, paraprotein at diagnosis 7.74 g/dl. Pt has a history of MGUS many years ago. - Presacral mass biopsy positive for plasma cell completed on 10/19/19 - Positive metastatic disease bone - Status Post Rad Onc presacral mass, initiated on 10/18 - with good response - Now with pain on Right lower back (See Below for new intervention) Status Post Aredia, renal dose adjusted given on 10/22/19 - Plan to start induction with RVD and Zometa (or Xgeva) after discharge. New Right Sided Back pain - Review of Right hip, Pelvis and lumbar MRI - Radiaiton oncology asked to evaluate again - Pain Management with bowel regimen - Dexamethasone with PPI - Flexeril ATC GARY (acute kidney injury) -Resolved - Hx of renal cancer-type unknown-partial nephrectomy. Anemia Anemia of malignancy/inflammation, all studies low with significantly elevated ferritin. No iron. Hgb stable, no transfusion today. Use irradiated blood products if needed History of renal cell carcinoma Treated by Dr. Verdugo at [facility]. Plan 11/04/19: - Increase MS Contin to 30mg po q8 hours - Discontinue [place] and Start MSIR 15mg po q3 hours prn pain - Continue Flexeril ATC - PT/OT plan to increase strength in muscles and prevent further atrophy for ongoing high risk fracture picture. I have asked them to provide a plan to nursing and patient to perform each day over long weekend to attempt not to lose ground on strength. - Called Pain services to discuss other options such as pain block, internal pump. Awaiting for call back - Increased Narcotic induced constipation prevention medications to 2 senna-S 2x day and daily miralax. - Discussed in full with patient, family, Oscar DESAI home health caregiver. - Discussed with Dr. Rubio and will radiate today to provide coverage for weekend. Greater than 45 minutes counseling and coordinating care for patient today <Fredy Hatch - Last Filed: 11/04/19 17:53> Objective - Vital Signs Vital signs: Vital Signs Temp 98 F 11/04/19 15:42 Pulse 88 11/04/19 15:42 Resp 18 11/04/19 15:42 BP 131/70 11/04/19 15:42 Pulse Ox 97 11/04/19 15:42 Intake & Output 11/03/19 11/04/19 11/04/19 18:59 06:59 18:59 Intake Total 880 150 Balance 880 150 Weight 99.79 kg Intake: Intake, IV Titration 150 Amount Sodium Chloride 0.9% 1, 150 000 ml @ 75 mls/hr IV . [id number] [facility] Rx#:[id number] Oral 880 Other: Voiding Method Urinal Urinal Urinal # Voids 2 2 3 # Bowel Movements 1 - Labs CBC & Chem 7: 11/04/19 06:08 11/04/19 06:08 Labs: Abnormal Lab Results - Last 24 Hours (Table) 11/03/19 11/03/19 11/04/19 Range/Units 17:09 17:09 06:08 RBC 2.68 L (4.30-5.90) m/uL Hgb 8.4 L (13.0-17.5) gm/dL Hct 26.4 L (39.0-53.0) % RDW 17.9 H (11.5-15.5) % Lymphocytes # 0.1 L (1.0-4.8) k/uL Sodium 135 L (137-145) mmol/L BUN 40 H (9-20) mg/dL Glucose 165 H (74-99) mg/dL ALT 71 H (4-49) U/L Alkaline Phosphatase 132 H (38-126) U/L Total Protein 12.3 H (6.3-8.2) g/dL Total Protein (PEP) 11.3 H (6.2-8.2) g/dL Albumin 3.3 L (3.5-5.0) g/dL Free [place] LC, Quant 63.00 H (0.33-1.94) mg/dL Free [place] LC, Quant 0.02 L (0.57-2.63) mg/dL 11/04/19 Range/Units 06:08 RBC (4.30-5.90) m/uL Hgb (13.0-17.5) gm/dL Hct (39.0-53.0) % RDW (11.5-15.5) % Lymphocytes # (1.0-4.8) k/uL Sodium 136 L (137-145) mmol/L BUN 43 H (9-20) mg/dL Glucose 135 H (74-99) mg/dL ALT 67 H (4-49) U/L Alkaline Phosphatase (38-126) U/L Total Protein 10.4 H (6.3-8.2) g/dL Total Protein (PEP) (6.2-8.2) g/dL Albumin 3.0 L (3.5-5.0) g/dL Free [place] LC, Quant (0.33-1.94) mg/dL Free [place] LC, Quant (0.57-2.63) mg/dL Assessment and Plan Plan: patient seen and examined. As above. Patient has actually improved since admission. He was able to sit up in the chair today for limited period of time. He is also able to transfer from bed to the bedside commode to It was discussed with him that he does not meet criteria for inpatient transfer requiring higher level of care. Given his current findings, his management is going to be focused on pain control and improving mobility. It was emphasized to him that his symptoms from his initial presentation were from the left-sided sacral mass that has been radiated with marked improvement in his symptoms. Current symptoms now represent a difference, being more related to the right side. MRI imaging did not show any finding indicating need for surgical intervention. - It was discussed with the patient that given the extensive nature of his disease, his improvement in terms of symptoms is likely to be a slow gradual process, requiring ongoing pain management, physical therapy, and efforts to increase mobility and functioning. - It was also discussed with him that his proposed myeloma regimen is a standard NCCN recommended regimen. even with starting treatment, given the extent of disease, degree of response that would affect his symptoms markedly would probably take several cycles. - We will also discuss with him that if he were to go to the [facility] for rehab, he would likely not be able to treat him with the proposed regimen for his myeloma, due to coverage issues. Therefore from our standpoint, it would be most desirable if is functioning is able to improve when he came home and start specific myeloma treatment as soon as possible. He expressed understanding of the same. Changes made in regimen as noted above
[2019-11-04] MEDS: SENNOSIDES-DOCUSATE SODIUM 1 EACH TAB PO SCH ×2 (17:04→22:09)
--- NOTE | 2019-11-04 17:36 | P.CNOR ---
History of Present Illness - [facility] Consult date: 11/04/19 Requesting physician: Mayra Flowers Consult reason: low back pain (Intractable lumbosacral pain, diffuse metastatic disease) History of present illness: Patient is a very pleasant 64-year-old male who is seen and examined the bedside for further evaluation of his low back pain. He was recently seen during his previous admittance to the hospital during the first week of October 2019. At that time he was discharged home on 10/21/2019. Since being discharged from the hospital he has been exercising increased lumbosacral pain with significant spasm radiating down the right lower extremity. He denies any recent injuries. He is not currently complaining of left buttock pain which he had previously. He states his pain is exacerbated with movements. His pain is best controlled while lying down. He states he is unable to sit up for greater than 5 minutes and is unable to ambulate more than 2 or 3 steps without getting any significant pain and spasm into the right posterior thigh. He discontinued wearing the brace he was prescribed previously as it is no longer providing control of his symptoms symptoms. After significant testing, he was recently diagnosed with multiple myeloma with metastatic bone disease. He continues to follow with oncology. He underwent 2 treatments with radiation oncology today. He states he is scheduled for further treatment this upcoming Thursday. He denies any saddle anesthesia. His pain is most significant at the lumbosacral junction. He currently has a pain patch intact over the lumbosacral junction. He denies any lower extremity weakness bilaterally. Since his admittance he has had a new MRI of the lumbar spine as well as an MRI of the right hip. He continues to eat and void without difficulty. Patient is known to have a history of renal cell carcinoma with partial right kidney nephrectomy performed approximately 2 years ago. Patient does admit to history of total knee arthroplasty bilaterally both performed by Dr. Craig. During his last admission he was also diagnosed with a sacral mass and underwent biopsy which was positive for plasma cell. Patient has been discussed in detail with oncology. Past Medical History Past Medical History: Cancer, Hypertension Additional Past Medical History / Comment(s): back pain, partial nephrectomy, bilat knee replacement, R sided kidney ca, multiple myeloma History of Any Multi-Drug Resistant Organisms: None Reported Past Surgical History: Appendectomy, Joint Replacement, Orthopedic Surgery Additional Past Surgical History / Comment(s): carpel tunnel, cataract, partial kidney removal right side. Past Psychological History: No Psychological Hx Reported Smoking Status: Never smoker Past Alcohol Use History: None Reported Past Drug Use History: None Reported - Past Family History Father Additional Family Medical History / Comment(s): prostate cancer mets to bone Medications and Allergies Home Medications Medication Instructions Recorded Confirmed Type Albuterol Nebulized [Ventolin 2.5 mg INHALATION RT-TID PRN 10/16/19 10/31/19 History Nebulized] Fluticasone Nasal [place] [Flonase 1 spray EA NOSTRIL HS 10/16/19 10/31/19 History Nasal [place]] Furosemide [Lasix] 20 mg PO DAILY 10/16/19 10/31/19 History Pravastatin Sodium [Pravachol] 20 mg PO DAILY 10/16/19 10/31/19 History traMADol HCL 50 mg PO BID 10/16/19 10/31/19 History amLODIPine BESYLATE/BENAZEPRIL 1 cap PO DAILY #90 cap 10/18/19 10/31/19 Rx [Lotrel 10-20 MG] Metoprolol Succinate (ER) [Toprol 25 mg PO DAILY #90 tab.er.24h 10/19/19 10/31/19 Rx XL] Pantoprazole [Protonix] 40 mg PO BID #60 tablet.dr 10/19/19 10/31/19 Rx Sennosides [Senokot] 8.6 mg PO BID #30 tab 10/21/19 10/31/19 Rx Gabapentin [Neurontin] 400 mg PO TID 10/31/19 10/31/19 History HYDROcodone/APAP 5-325MG [[place] 1 tab PO Q6H PRN 10/31/19 10/31/19 History 5-325] Allergies Allergy/AdvReac Type Severity Reaction Status Date / Time hydrocodone [From [place]] Allergy Unknown Verified 10/31/19 18:11 Physical Examination Physical exam: Patient is awake, alert, and oriented 3 Vital signs stable Good chest excursion with deep inspiration and expiration Examination of thoracic and lumbar spine reveals skin is intact with no abrasion s, aspirations, or bruises; no erythema, purulence or signs of infection Evidence of a lidocaine pain patch over the lumbosacral junction Significant pain with palpation along the midline and towards the right at the lumbosacral junction Dorsiflexion, plantarflexion, and extensor hallucis longus positive sustained bilaterally Lower extremity strength 5/5 bilaterally Patient is able to perform active range of motion bilateral lower extremities while lying in bed without difficulty Evidence of well-healed incisions over the anterior knees No lower extremity hyperreflexia bilaterally Straight leg test negative bilateral lower extremities Negative Lasegue's test bilaterally No signs or symptoms of DVT; no calf pain No pain with internal and external rotation of the hips bilaterally Neurovascularly intact Results Pertinent studies: MRI of the right hip and pelvis taken on 11/03/2019: Diffuse marrow signal changes consistent with metastatic disease; no evidence of fracture; no evidence of asymmetric marrow signal changes within the proximal femurs to suggest fracture; degenerative changes of the lumbar spine; posterior left sacrum shows signal change consistent with patient's lytic lesion seen on CT and prior biopsy MRI of the lumbar spine taken on 11/01/2019: Evidence of some bony changes at S2 may represent a pathological fracture; Diffuse contrast enhancement evident especially L2-S1 which can be compatible with patient's metastatic disease; no evidence of compression fracture deformities; degenerative changes of the lumbar spine remained fairly stable as compared to previous study taken on 10/17/2019 MRI of the thoracic spine taken with and without contrast on 10/17/2019: Evidence of osteolytic metastasis throughout the thoracic spine without evidence of destructive lesion, destructive mass, epidural mass, or compression fracture deformity; visualized thoracic cord appears to be normal; no evidence of paraspinal mass; Evidence of ankylosing spondylitis in the thoracic spine and multilevel thoracic degenerative disc disease without evidence of significant stenosis at the thoracic spine MRI of the lumbar spine taken with and without contrast on 10/17/2019: Evidence of osteolytic metastatic disease throughout the lumbar spine without evidence of compression fracture deformity; no evidence of bony destruction in the lumbar s pine; L1-2, L2-3 can L3-4 disc desiccation and disc bulging with bilateral neural foraminal encroachment and right lateral recess stenosis; L4-5 degenerative disc disease, disc desiccation, disc bulge resulting in mild spinal canal stenosis; L5-S1 degenerative disc disease CT of the lumbar spine taken on 10/15/2019: Extensive osteophytic changes in the lumbar spine and visualized pelvis consistent with widespread metastatic disease extending from the visualized vertebral bodies of T11 extending to S1 with significant progression as compared to previous imaging taken on 01/27/2019; degenerative disc disease throughout the lumbar spine most significant at L2-3, L4-5, and L5-S1; no evidence of vertebral body compression fracture; L4-5 and L5-S1 significant posterior osteophytic spurring; significant anterior osteophytic spurring with large anterior bridging spur at L2-3 with a left lateral spur at L2-3; L1-2 right lateral osteophytic spurring - Labs Labs: Abnormal Lab Results - Last 24 Hours (Table) 11/03/19 11/03/19 11/04/19 Range/Units 17:09 17:09 06:08 RBC 2.68 L (4.30-5.90) m/uL Hgb 8.4 L (13.0-17.5) gm/dL Hct 26.4 L (39.0-53.0) % RDW 17.9 H (11.5-15.5) % Lymphocytes # 0.1 L (1.0-4.8) k/uL Sodium 135 L (137-145) mmol/L BUN 40 H (9-20) mg/dL Glucose 165 H (74-99) mg/dL ALT 71 H (4-49) U/L Alkaline Phosphatase 132 H (38-126) U/L Total Protein 12.3 H (6.3-8.2) g/dL Total Protein (PEP) 11.3 H (6.2-8.2) g/dL Albumin 3.3 L (3.5-5.0) g/dL Free [place] LC, Quant 63.00 H (0.33-1.94) mg/dL Free Lambda LC, Quant 0.02 L (0.57-2.63) mg/dL 11/04/19 Range/Units 06:08 RBC (4.30-5.90) m/uL Hgb (13.0-17.5) gm/dL Hct (39.0-53.0) % RDW (11.5-15.5) % Lymphocytes # (1.0-4.8) k/uL Sodium 136 L (137-145) mmol/L BUN 43 H (9-20) mg/dL Glucose 135 H (74-99) mg/dL ALT 67 H (4-49) U/L Alkaline Phosphatase (38-126) U/L Total Protein 10.4 H (6.3-8.2) g/dL Total Protein (PEP) (6.2-8.2) g/dL Albumin 3.0 L (3.5-5.0) g/dL Free [place] LC, Quant (0.33-1.94) mg/dL Free Lambda LC, Quant (0.57-2.63) mg/dL H & H 10/31/19 11/01/19 11/02/19 Range/Units 15:02 13:28 06:01 Hgb 8.5 L 9.3 L 8.7 L (13.0-17.5) gm/dL Hct 26.3 L 28.9 L 27.3 L (39.0-53.0) % 11/03/19 11/04/19 Range/Units 17:09 06:08 Hgb 9.3 L 8.4 L (13.0-17.5) gm/dL Hct 29.8 L 26.4 L (39.0-53.0) % Result Diagrams: 11/04/19 06:08 11/04/19 06:08 Assessment and Plan Assessment: Assessment: 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 Craig (1) Muscle spasm of right lower extremity Current Visit: Yes Status: Acute Code(s): M62.838 - OTHER MUSCLE SPASM SNOMED Code(s): 29143049 (2) Lumbar back pain with radiculopathy affecting right lower extremity Current Visit: Yes Status: Acute Code(s): M54.16 - RADICULOPATHY, LUMBAR REGION SNOMED Code(s): 468552441 (3) Metastatic disease Current Visit: Yes Status: Acute Code(s): C79.9 - SECONDARY MALIGNANT NEOPLASM OF UNSPECIFIED SITE SNOMED Code(s): 374611925 (4) Hx of total knee arthroplasty Current Visit: No Status: Acute Code(s): Z96.659 - PRESENCE OF UNSPECIFIED ARTIFICIAL KNEE JOINT SNOMED Code(s): 7972753375754 (5) Hypertension Current Visit: No Status: Acute Code(s): I10 - ESSENTIAL (PRIMARY) HYPERTENSION SNOMED Code(s): 09195799 (6) Lumbar degenerative disc disease Current Visit: No Status: Acute Code(s): M51.36 - OTHER INTERVERTEBRAL DISC DEGENERATION, LUMBAR REGION SNOMED Code(s): 56922823 (7) Multiple myeloma Current Visit: No Status: Acute Priority: High Code(s): C90.00 - MULTIPLE MYELOMA NOT HAVING ACHIEVED REMISSION SNOMED Code(s): 903678487 (8) Sacral mass Current Visit: No Status: Acute Priority: High Code(s): M53.3 - SACROCOCCYGEAL DISORDERS, NOT ELSEWHERE CLASSIFIED SNOMED Code(s): 46791774 (9) Severe low back pain Current Visit: No Status: Acute Code(s): M54.5 - LOW BACK PAIN SNOMED Code(s): 029975742 (10) History of renal cell carcinoma Current Visit: No Status: Chronic Priority: High Code(s): Z85.528 - PERSONAL HISTORY OF OTHER MALIGNANT NEOPLASM OF KIDNEY SNOMED Code(s): 645180798 Plan: Plan: 1. Patient has been discussed in detail with Dr. Jose Gamez. Dr. Jose Gamez and myself have reviewed the patient's recent lumbar MRI, right hip MRI, and pelvis MRI. Patient's right hip MRI, pelvic MRI, and lumbar MRI results have been discussed with the patient in detail. Review of imaging does show evidence of osteolytic metastatic disease throughout the lumbar spine. There is evidence of bony changes at S2 that could represent pathological fracture. He is experiencing significant lumbosacral pain which is exacerbated with sitting upright and ambulation. He also experiences pain radiating down the right lower extremity with ambulation sitting upright. We discussed he may wear his previous prescribed brace for comfort support as needed but further bracing will probably not provide any significant benefit for him. There is also not currently any indications for surgical intervention that could provide s ignificant improvement of his symptoms. We recommend continuing with conservative treatment with radiation oncology and radiation or his recently diagnosed multiple myeloma. Patient was able to undergo 2 radiation treatments today with Dr. Rubio. He scheduled for another treatment next Thursday. At this time the patient states he also would like to avoid any surgical intervention at his lumbosacral spine and agrees with the plan to continue with conservative treatment. He is also continue pain control with a lidocaine patch, Neurontin, morphine sulfate, and Flexeril. He may continue to ambulate to tolerance. He should avoid excessive activities with his lumbar spine and avoid heavy lifting. We discussed that the patient is clear for discharge from an orthopedic spine standpoint. Following discharge, we will plan to have him follow-up with Sergo Wilkins PA-C or Dr. Jose Gamez at [facility] in approximately 2-3 weeks for further evaluation. 2. Patient will continue be seen and examined and undergo further treatment with multiple medical providers including radiation oncology, oncology, and medicine Time with Patient: Greater than 30 (Including obtaining history, physical examination, reviewing of imaging, and dictation.)
[2019-11-04] MEDS: FLUTICASONE 50MCG/SPRAY NASAL 16GM EA NOSTRIL SCH (22:10)
[2019-11-05] MEDS: MORPHINE SULFATE ER 30 MG TABLET PO SCH ×4 (00:25→23:35)
[2019-11-05] MEDS: DEXAMETHASONE SOD PHOSPHATE 4 MG/ML 1 ML VIAL IV SCH ×4 (00:25→23:34)
[2019-11-05] MEDS: SODIUM CHLORIDE 0.9% 1,000 ML IV SCH ×2 (01:02→17:25)
[2019-11-05 07:31] LABS: Cholesterol 145 mg/dL (<200); HDL Cholesterol 25 mg/dL (40-60); LDL Cholesterol,Calculated 97 mg/dL (0-99); Triglycerides 117 mg/dL (<150)
[2019-11-05] MEDS: GABAPENTIN 400 MG CAP PO SCH ×3 (08:15→21:28)
[2019-11-05] MEDS: PANTOPRAZOLE 40 MG TABLET PO SCH ×2 (08:15→16:40)
[2019-11-05] MEDS: LISINOPRIL 20 MG TAB PO SCH (08:16)
[2019-11-05] MEDS: NAPROXEN 250 MG TAB PO SCH ×3 (08:16→21:28)
[2019-11-05] MEDS: amLODIPine 10 MG TAB PO SCH (08:16)
[2019-11-05] MEDS: CYCLOBENZAPRINE 10 MG TAB PO SCH ×3 (08:16→21:29)
[2019-11-05] MEDS: METOPROLOL SUCCINATE (ER) 25 MG TAB.ER.24H PO SCH (08:16)
[2019-11-05] MEDS: PRAVASTATIN SODIUM 20 MG TAB PO SCH (08:16)
[2019-11-05] MEDS: LIDOCAINE 5% PATCH TOPICAL SCH (08:16)
[2019-11-05] MEDS: SENNOSIDES-DOCUSATE SODIUM 1 EACH TAB PO SCH ×2 (08:16→21:27)
[2019-11-05] MEDS: ENOXAPARIN 40 MG/0.4 ML SYRINGE SQ SCH (08:17)
[2019-11-05] MEDS: POLYETHYLENE GLYCOL 3350 17 GM POWD.PACK PO SCH (08:17)
[2019-11-05 11:40] LABS: Anisocytosis Slight; Basophils % (A) 0 %; Eosinophils % (A) 0 %; HCT 27.3 % (39.0-53.0); HGB 8.4 gm/dL (13.0-17.5); Hypochromasia Moderate; Lymphocytes # (A) 0.1 k/uL (1.0-4.8); Lymphocytes % (A) 2 %; MCH 30.2 pg (25.0-35.0); MCHC 30.6 g/dL (31.0-37.0); MCV 98.9 fL (80.0-100.0); Macrocytosis Slight; Mean Platelet Volume 9.5; Monocytes # (A) 0.2 k/uL (0-1.0); Monocytes % (A) 4 %; Neutrophils # (A) 4.5 k/uL (1.3-7.7); Neutrophils % (A) 92 %; Platelet Count 143 k/uL (150-450); RBC 2.77 m/uL (4.30-5.90); RDW 17.8 % (11.5-15.5); WBC 4.8 k/uL (3.8-10.6)
[2019-11-05 12:13] LABS: ALT 72 U/L (4-49); AST 35 U/L (17-59); African American GFR (CKD) >90 (>60 ml/min/1.73 sqM); Alkaline Phosphatase 107 U/L (38-126); Anion Gap 10 mmol/L; Blood Urea Nitrogen 43 mg/dL (9-20); Calcium 8.4 mg/dL (8.4-10.2); Carbon Dioxide 28 mmol/L (22-30); Chloride 97 mmol/L (98-107); Glucose 158 mg/dL (74-99); Non-African American GFR(CKD) 78 (>60 ml/min/1.73 sqM); Potassium 5.2 mmol/L (3.5-5.1); Sodium 135 mmol/L (137-145); Total Bilirubin 0.4 mg/dL (0.2-1.3); Total Protein 10.5 g/dL (6.3-8.2)
[2019-11-05 13:25] LABS: Hepatitis A Antibody IgM Non-Reactive (Non-Reactive); Hepatitis B Core IgM Non-Reactive (Non-Reactive); Hepatitis B Surface Antigen Non-Reactive (Non-Reactive); Hepatitis C IgG Antibody Non-Reactive (Non-Reactive)
--- NOTE | 2019-11-05 14:50 | P.PN ---
Subjective Progress Note Date: 11/05/19 Principal diagnosis: Right hip pain Patient was seen and examined. No acute events overnight. Patient reports 0-5 out of 10 severity right-sided hip pain that is currently under control. She states that his pain gets aggravated with any sort of weightbearing or movement and can easily be a 10 out of 10. Patient states that he has not worked with PT today. Patient reports radiation of pain down his right buttocks, sharp and stabbing. He denies any chest pain, shortness of breath or palpitations. No nausea or vomiting. No fever or chills. No bladder or bowel incontinence. No saddle anesthesia. Objective - Vital Signs Vital signs: Vital Signs Temp 96.7 F L 11/05/19 12:14 Pulse 77 11/05/19 12:14 Resp 17 11/05/19 12:14 BP 122/73 11/05/19 12:14 Pulse Ox 96 11/05/19 12:14 Intake & Output 11/04/19 11/05/19 11/05/19 18:59 06:59 18:59 Intake Total 150 1175 Output Total 1500 350 Balance 150 -325 -350 Weight 99.79 kg Intake: Intake, IV Titration 150 Amount Sodium Chloride 0.9% 1, 150 000 ml @ 75 mls/hr IV . [id number] [facility] Rx#:[id number] Oral 1175 Output: Urine 1500 350 Other: Voiding Method Urinal Urinal Urinal # Voids 3 1 - Exam General: [non toxic], [no distress], [appears at stated age] Derm: [warm], [dry] Head: [atraumatic], [normocephalic], [symmetric] Eyes: [EOMI], [no lid lag], [anicteric sclera] Mouth: [no lip lesion], [mucus membranes moist] Cardiovascular: [S1S2 reg], [no murmur], [positive DP pulse bilateral], Lungs: [CTA bilateral], [no rhonchi, no rales] , [no accessory muscle use] Abdominal: [soft], [ nontender to palpation], [no guarding], [no appreciable organomegaly] Ext: [no gross muscle atrophy], [no edema], [no contractures], [restricted range of motion in the right hip due to pain] Neuro: [no focal neuro deficits] Psych: [Alert], [oriented], [appropriate affect] - Labs CBC & Chem 7: 11/05/19 06:26 11/05/19 06:26 Labs: Abnormal Lab Results - Last 24 Hours (Table) 11/05/19 11/05/19 11/05/19 Range/Units 06:26 06:26 06:26 RBC 2.77 L (4.30-5.90) m/uL Hgb 8.4 L (13.0-17.5) gm/dL Hct 27.3 L (39.0-53.0) % MCHC 30.6 L (31.0-37.0) g/dL RDW 17.8 H (11.5-15.5) % Plt Count 143 L (150-450) k/uL Lymphocytes # 0.1 L (1.0-4.8) k/uL Sodium 135 L (137-145) mmol/L Potassium 5.2 H (3.5-5.1) mmol/L Chloride 97 L (98-107) mmol/L BUN 43 H (9-20) mg/dL Glucose 158 H (74-99) mg/dL ALT 72 H (4-49) U/L Total Protein 10.5 H (6.3-8.2) g/dL Albumin 3.0 L (3.5-5.0) g/dL HDL Cholesterol 25 L (40-60) mg/dL Assessment and Plan Assessment: Intractable right hip pain secondary to metastatic disease with history of multiple myeloma Acute kidney injury Anemia Transaminitis MRI of the lumbar spine shows metastatic disease noted L2 S1 along with lytic lesions involving the right hip and pelvis. Plans: He has been started on morphine sulfate ER 30 mg by mouth twice a day along with lidocaine patch. His home medication of gabapentin has been continued. He has also been started on Flexeril as needed. He has been started on dexamethasone 4 mg IV every 8 hours. Discussed with patient, advised to use [place] as needed prior to starting any activities with physical therapy. We will consult PT and OT to work with the patient. Family requested transfer to [facility]. They do not have an accepting physician. At this time, I do not see a reason to transfer for higher level of care unless indicated by oncology. His BUN is 43. Likely related to multiple myeloma along with dehydration. Plans: Start normal saline at 75 mL per hour. Repeat BMP tomorrow morning. Hemoglobin 8.4. Normocytic. Likely related to multiple myeloma. Appears at baseline. Plans: Repeat CBC tomorrow morning. Transfuse if hemoglobin less than 7. ALT 72. Lipid panel is negative. Hepatitis panel was negative. [Continue pain medication by also using [place] has breakthrough. Follow PT and OT recommendations. Likely DC when patient achieves better pain control.]
[2019-11-05] MEDS: FLUTICASONE 50MCG/SPRAY NASAL 16GM EA NOSTRIL SCH (21:28)
--- NOTE | 2019-11-05 23:56 | P.PN ---
Subjective Progress Note Date: 11/05/19 Principal diagnosis: multiple myeloma Multiple Myeloma patient states he is noticing mild improvements, although he is still unable to move certain positions without pain. He will receive his third radiation treatment today, dosed to help symptoms through weekend. He is continuing on MS contin 30mg po, norco (without relief), and ATC flexeril. Pain services did evaluate and I have attempted to call them in regards to see if he could be a candidate for other forms of pain management (i.e. pain block or internal site treatment block) to decrease the systemic effects of the pain management but better manage pain so he can move around. He will need to be able to walk up and down three steps to go home. PT/OT is working with patient as well. I had a long (greater than 60 minute) discussion with patients and another supportive family member today. They are frustrated as this has all evolved very quickly and they do not understand this hospitalization is different then the recent one in that this is more his right side affected than left. They were very adament that the patient be transferred to [facility] today, although the transfer will not be approved as to the lack of evidence to require the higher level of care. I explained this to patients family and also to transfer prior to a holiday weekend when radiation therapy has already begun here and pain interventions have already been trialled and continuing to be trialled could potentially be more of a risk then beneficial. I recommended we develop a plan through the weekend and reviewed our goals at this moment. The goal is to get patient home but in a way the pain is tolerable he can take himself safely to and from the bathroom and sit in chair, he is not currently able to do this. There was question of possible fracture at top of sacrum within radiation oncology films, if this is the main source of this new debilitating pain this would be difficult to stabilize with pain block or brace. I did speak with ortho regarding this and unfortunately there is not a surgical intervention to help with the source of this current problem. Therefore, the goal of care is pain management and safe transfers and short ambulation. If IPR is needed post discharge that could be potentially beneficial. Patients and family understood and agree. They would like to readdress transfer if he is not showing improvements by Thursday next week and I did agree to consider at that time. Otherwise he is hemodynamically stable at this time. Objective - Vital Signs Vital signs: Vital Signs Temp 96.7 F L 11/05/19 12:14 Pulse 77 11/05/19 12:14 Resp 17 11/05/19 12:14 BP 122/73 11/05/19 12:14 Pulse Ox 96 11/05/19 12:14 Intake & Output 11/04/19 11/05/19 11/05/19 18:59 06:59 18:59 Intake Total 150 1175 Output Total 1500 350 Balance 150 -325 -350 Weight 99.79 kg Intake: Intake, IV Titration 150 Amount Sodium Chloride 0.9% 1, 150 000 ml @ 75 mls/hr IV . [id number] [facility] Rx#:[id number] Oral 1175 Output: Urine 1500 350 Other: Voiding Method Urinal Urinal Urinal # Voids 3 1 - Exam The patient appeared well nourished and normally developed. Vital signs as documented. Head exam is unremarkable. No scleral icterus or corneal arcus noted. Neck is without jugular venous distension, thyromegaly, or carotid bruits. Carotid upstrokes are brisk bilaterally. Lungs are clear to auscultation and percussion. Cardiac exam reveals the PMI to be normally sized and situated. Rhythm is regular. First and second heart sounds normal. No murmurs, rubs or gallops. Abdominal exam reveals normal bowel sounds, no masses, no organomegaly and no aortic enlargement. Extremities are nonedematous and both femoral and pedal pulses are normal. - Labs CBC & Chem 7: 11/05/19 06:26 11/05/19 06:26 Labs: Abnormal Lab Results - Last 24 Hours (Table) 11/05/19 11/05/19 11/05/19 Range/Units 06:26 06:26 06:26 RBC 2.77 L (4.30-5.90) m/uL Hgb 8.4 L (13.0-17.5) gm/dL Hct 27.3 L (39.0-53.0) % MCHC 30.6 L (31.0-37.0) g/dL RDW 17.8 H (11.5-15.5) % Plt Count 143 L (150-450) k/uL Lymphocytes # 0.1 L (1.0-4.8) k/uL Sodium 135 L (137-145) mmol/L Potassium 5.2 H (3.5-5.1) mmol/L Chloride 97 L (98-107) mmol/L BUN 43 H (9-20) mg/dL Glucose 158 H (74-99) mg/dL ALT 72 H (4-49) U/L Total Protein 10.5 H (6.3-8.2) g/dL Albumin 3.0 L (3.5-5.0) g/dL HDL Cholesterol 25 L (40-60) mg/dL Assessment and Plan Plan: Assessment and Recommendations: Multiple Myeloma - Recent Diagnosis. - [place] light chain at diagnosis 471, paraprotein at diagnosis 7.74 g/dl. Pt has a history of MGUS many years ago. - Presacral mass biopsy positive for plasma cell completed on 10/19/19 - Positive metastatic disease bone - Status Post Rad Onc presacral mass, initiated on 10/18 - with good response - Now with pain on Right lower back (See Below for new intervention) Status Post Aredia, renal dose adjusted given on 10/22/19 - Plan to start induction with RVD and Zometa (or Xgeva) after discharge. proposed myeloma regimen is a standard NCCN recommended regimen. New Right Sided Back pain - Review of Right hip, Pelvis and lumbar MRI - Radiaiton oncology asked to evaluate again - Pain Management with bowel regimen - Dexamethasone with PPI - Flexeril ATC G[place] (acute kidney injury) -Resolved - Hx of renal cancer-type unknown-partial nephrectomy. Anemia Anemia of malignancy/inflammation, all studies low with significantly elevated ferritin. No iron. Hgb stable, no transfusion today. Use irradiated blood products if needed Current hemoglobin 8.4, platelets slightly lower 143, white cells normal. History of renal cell carcinoma Treated by Dr. Verdugo at [facility]. Plan - MS Contin to 30mg po q8 hours - MSIR 15mg po q3 hours prn pain - Continue Flexeril ATC - PT/OT plan to increase strength in muscles and prevent further atrophy for ongoing high risk fracture picture. I have asked them to provide a plan to nursing and patient to perform each day over long weekend to attempt not to lose ground on strength. - Called Pain services to discuss other options such as pain block, internal pump. Awaiting for call back - Increased Narcotic induced constipation prevention medications to 2 senna-S 2x day and daily miralax. - Discussed in full with patient, family, [employer] career and guidance counselor. - RT even with starting treatment, given the extent of disease, degree of response that would affect his symptoms markedly would probably take several cycles. - We will also discuss with him that if he were to go to the [facility] for rehab, he would likely not be able to treat him with the proposed regimen for his myeloma, due to coverage issues. Therefore from our standpoint, it would be most desirable if is functioning is able to improve when he came home and start specific myeloma treatment as soon as possible. Patient's questions answered and understanding stated. Thank you for allowing us to participate in the care of your patient. Please feel free to call us with any questions. Nena Skinner MD covering for Dr. [facility] [id number] , [address] [place] [address] Office: [phone],
[2019-11-06] MEDS: SODIUM CHLORIDE 0.9% 1,000 ML IV SCH ×2 (04:55→19:15)
[2019-11-06 07:12] LABS: Anisocytosis Slight; Basophils % (A) 0 %; Eosinophils % (A) 0 %; HCT 26.5 % (39.0-53.0); HGB 8.2 gm/dL (13.0-17.5); Hypochromasia Moderate; Lymphocytes # (A) 0.1 k/uL (1.0-4.8); Lymphocytes % (A) 2 %; MCH 30.8 pg (25.0-35.0); MCHC 30.9 g/dL (31.0-37.0); MCV 99.6 fL (80.0-100.0); Macrocytosis Slight; Mean Platelet Volume 8.5; Monocytes # (A) 0.2 k/uL (0-1.0); Monocytes % (A) 3 %; Neutrophils % (A) 94 %; Platelet Count 150 k/uL (150-450); RBC 2.67 m/uL (4.30-5.90); RDW 17.9 % (11.5-15.5); WBC 6.5 k/uL (3.8-10.6)
[2019-11-06 07:20] LABS: Albumin 3.1 g/dL (3.5-5.0); Calcium 8.4 mg/dL (8.4-10.2); Potassium 5.5 mmol/L (3.5-5.1); Total Bilirubin 0.5 mg/dL (0.2-1.3); Total Protein 10.5 g/dL (6.3-8.2)
[2019-11-06] MEDS ORDERED: INSULIN REGULAR 100 UNIT/ML VIAL IV ONE ×3 (08:18→23:52)
[2019-11-06] MEDS ORDERED: DEXTROSE 50% SYRINGE 50 ML IVP STA ×3 (08:18→23:52)
[2019-11-06] MEDS: MORPHINE SULFATE ER 30 MG TABLET PO SCH ×2 (08:53→15:28)
[2019-11-06] MEDS: SENNOSIDES-DOCUSATE SODIUM 1 EACH TAB PO SCH ×2 (08:53→22:09)
[2019-11-06] MEDS: DEXAMETHASONE SOD PHOSPHATE 4 MG/ML 1 ML VIAL IV SCH ×2 (08:53→15:28)
[2019-11-06] MEDS: PRAVASTATIN SODIUM 20 MG TAB PO SCH (08:54)
[2019-11-06] MEDS: ENOXAPARIN 40 MG/0.4 ML SYRINGE SQ SCH (08:54)
[2019-11-06] MEDS: METOPROLOL SUCCINATE (ER) 25 MG TAB.ER.24H PO SCH (08:54)
[2019-11-06] MEDS: PANTOPRAZOLE 40 MG TABLET PO SCH ×2 (08:54→19:15)
[2019-11-06] MEDS: CYCLOBENZAPRINE 10 MG TAB PO SCH ×3 (08:54→22:09)
[2019-11-06] MEDS: amLODIPine 10 MG TAB PO SCH (08:54)
[2019-11-06] MEDS: GABAPENTIN 400 MG CAP PO SCH ×3 (08:54→22:09)
[2019-11-06] MEDS: POLYETHYLENE GLYCOL 3350 17 GM POWD.PACK PO SCH (08:55)
[2019-11-06] MEDS: LIDOCAINE 5% PATCH TOPICAL SCH (08:55)
[2019-11-06] MEDS: NAPROXEN 250 MG TAB PO SCH (08:55)
--- NOTE | 2019-11-06 10:32 | P.PN ---
Progress Note - Text Progress Note Date: 11/06/19 Spoke to patients as she was concerned about increased potassium. Given his diagnosis of MM and his history of kidney cancer have asked nephrology to help monitor and evaluate further with increased creat. and potassium. Check uric acid. Daily CBC and Renal function Increase activity to be able to quantify the balance of pain management with ADLs
--- NOTE | 2019-11-06 13:29 | P.PN ---
Progress Note - Text Progress Note Date: 11/06/19 patient is seen and examined today at bedside. He is sitting up in a chair. He says he feels like he is making progress in terms of his pain. However when the pain comes towards his right gluteal area it is essentially unbearable for him and he has to lay down to let it relax. He denies any weakness in his lower extremities. Denies any new changes in his bowel or bladder function. He is tolerating his medications properly is tolerating his diet appropriately. On exam he has sustained dorsal flexion plantar flexion and EHL with 5 out of 5 muscle strength. He is able to lift his legs up off the recliner independently. There is no pain with internal/external rotation of his hips. His abdomen soft. Assessment and plan S2 bony changes likely pathologic fracture Low back and sacral pain Difficulty with ambulation and mobilization History of multiple myeloma it seems that much the patient's symptoms stem from the bony change at S2. He does not seem to have any new change at the other vertebral bodies though there are number of chronic compression deformities present. He does have disc degeneration and some arthritis his lower back which may be contributing to some degree to his symptoms as well. She's not having any lower extremity weakness or neurologic change at this point. Currently he feels like he is been making some progress with this pain control and his mobilization. We will continue to have physical therapy work with him to try to do transfers to wheelchair. He may try to bear weight if he is comfortable but he may not be control with this due to the fractures may have to do transfers alone. I did discuss with him the possibility of doing a kyph oplasty at S2. This is certainly less common in the typical kyphoplasty but it could be a consideration to try to control some of the pain from the mass at that space. He would like to avoid any surgical intervention and discomfort that given his improvement over the last day. It is okay for the followed up on an outpatient basis when he still from medicine from a spine standpoint.
--- NOTE | 2019-11-06 13:43 | P.NPCON ---
History of Present Illness - Reason for Consult acute renal failure - History of Present Illness Reason for consultation: Acute kidney injury History of present illness: Patient is a 64-year-old male seen in renal consultation for acute kidney injury. Patient's baseline creatinine is near 1. It is up to 1.24 today. His potassium level is also been running slightly on the higher side and was up to 5.5 this morning. Patient presented to the hospital on October 30 with back pain. Patient states the pain was radiating from his lower back to his right gluteal region. Patient does have history of metastatic cancer to the spine and multiple myeloma. He has undergone radiation of the sacral area in the past. He is currently maintained on IV steroids and is due to start chemotherapy in the next 1-2 weeks. He admits to good urine output. No hematuria or dysuria. He was maintained on lisinopril which was discontinued yesterday. Additionally he is also receiving Naprosyn as needed for pain. Patient does admit to taking Motrin at home as needed for pain as well. However he denies taking it on a daily basis. Patient states he also has history of renal cancer and has undergone partial right-sided nephrectomy a few years ago. Patient states his nieces and hemodialysis. No fever or chills. No history of diabetes. Blood pressure is controlled. Vital signs are stable. General: The patient appeared well nourished and normally developed. HEENT: Head exam is unremarkable. Neck is without jugular venous distension. LUNGS: Lungs are clear to auscultation and percussion. Breath sounds decreased. HEART: Rate and Rhythm are regular. First and second heart sounds normal. No murmurs, rubs or gallops. ABDOMEN: Abdominal exam reveals normal bowel sounds. Non-tender and non- distended. EXTREMITITES: No clubbing, cyanosis, or edema. Past Medical History Past Medical History: Cancer, Hypertension Additional Past Medical History / Comment(s): back pain, partial nephrectomy, bilat knee replacement, R sided kidney ca, multiple myeloma History of Any Multi-Drug Resistant Organisms: None Reported Past Surgical History: Appendectomy, Joint Replacement, Orthopedic Surgery Additional Past Surgical History / Comment(s): carpel tunnel, cataract, partial kidney removal right side. Past Psychological History: No Psychological Hx Reported Smoking Status: Never smoker Past Alcohol Use History: None Reported Past Drug Use History: None Reported - Past Family History Father Additional Family Medical History / Comment(s): prostate cancer mets to bone Medications and Allergies Home Medications Medication Instructions Recorded Confirmed Type Albuterol Nebulized [Ventolin 2.5 mg INHALATION RT-TID PRN 10/16/19 10/31/19 History Nebulized] Fluticasone Nasal [place] [Flonase 1 spray EA NOSTRIL HS 10/16/19 10/31/19 History Nasal [place]] Furosemide [Lasix] 20 mg PO DAILY 10/16/19 10/31/19 History Pravastatin Sodium [Pravachol] 20 mg PO DAILY 10/16/19 10/31/19 History traMADol HCL 50 mg PO BID 10/16/19 10/31/19 History amLODIPine BESYLATE/BENAZEPRIL 1 cap PO DAILY #90 cap 10/18/19 10/31/19 Rx [Lotrel 10-20 MG] Metoprolol Succinate (ER) [Toprol 25 mg PO DAILY #90 tab.er.24h 10/19/19 10/31/19 Rx XL] Pantoprazole [Protonix] 40 mg PO BID #60 tablet.dr 10/19/19 10/31/19 Rx Sennosides [Senokot] 8.6 mg PO BID #30 tab 10/21/19 10/31/19 Rx Gabapentin [Neurontin] 400 mg PO TID 10/31/19 10/31/19 History HYDROcodone/APAP 5-325MG [[place] 1 tab PO Q6H PRN 10/31/19 10/31/19 History 5-325] Allergies Allergy/AdvReac Type Severity Reaction Status Date / Time hydrocodone [From [place]] Allergy Unknown Verified 10/31/19 18:11 Physical Exam Vitals: Vital Signs Temp Pulse Pulse Resp BP BP Pulse Ox 11/06/19 11:43 97.7 F 93 17 136/74 97 11/06/19 04:46 97.8 F 90 16 122/67 96 11/06/19 00:05 83 14 11/05/19 21:03 98.3 F 83 14 126/64 97 Intake and Output 11/05/19 11/06/19 11/06/19 22:59 06:59 14:59 Output Total 700 275 Balance -700 -275 Output: Urine 700 275 Other: Voiding Method Urinal Urinal # Voids 1 # Bowel Movements 1 Results - Lab Results Most recent lab results Calcium 8.4 mg/dL (8.4-10.2) 11/06/19 06:37 Magnesium 1.7 mg/dL (1.6-2.3) 11/01/19 13:28 11/06/19 06:37 11/06/19 06:37 Assessment and Plan Plan: Assessment: 1. Mild acute kidney injury mostly prerenal secondary to nonsteroidals and lisinopril. Creatinine 1.24 today. UA benign. 2. Multiple myeloma with metastatic bone lesions maintained on IV steroids. Oncology following. 3. Hyperkalemia secondary to acute kidney injury, lisinopril and nonsteroidals. 4. Benign hypertension. Controlled. 5. History of renal cancer status post partial right nephrectomy. Plan: Patient received IV insulin this morning. Discontinue Naprosyn. May use Tylenol if needed. Low potassium diet. Repeat potassium level at 5 PM today. Continue to monitor renal function and urine output. Thank you for the consultation. I will continue to follow the patient with you during his hospital stay.
--- NOTE | 2019-11-06 15:48 | P.PN ---
Subjective Progress Note Date: 11/06/19 Principal diagnosis: Right hip pain Patient was seen and examined. No acute events overnight. Patient reports improvement in his right lower extremity pain since admission. Able to transfer to a chair from his bed today. Patient reports radiation of pain down his right buttocks, sharp and stabbing. He denies any chest pain, shortness of breath or palpitations. No nausea or vomiting. No fever or chills. No bladder or bowel incontinence. No saddle anesthesia. Objective - Vital Signs Vital signs: Vital Signs Temp 97.7 F 11/06/19 11:43 Pulse 93 11/06/19 11:43 Resp 17 11/06/19 11:43 BP 136/74 11/06/19 11:43 Pulse Ox 97 11/06/19 11:43 Intake & Output 11/05/19 11/06/19 11/06/19 18:59 06:59 18:59 Output Total 900 425 300 Balance -900 -425 -300 Output: Urine 900 425 300 Other: Voiding Method Urinal Urinal Urinal # Voids 1 # Bowel Movements 1 1 1 - Exam General: [non toxic], [no distress], [appears at stated age] Derm: [warm], [dry] Head: [atraumatic], [normocephalic], [symmetric] Eyes: [EOMI], [no lid lag], [anicteric sclera] Mouth: [no lip lesion], [mucus membranes moist] Cardiovascular: [S1S2 reg], [no murmur], [positive DP pulse bilateral], Lungs: [CTA bilateral], [no rhonchi, no rales] , [no accessory muscle use] Abdominal: [soft], [ nontender to palpation], [no guarding], [no appreciable organomegaly] Ext: [no gross muscle atrophy], [no edema], [no contractures], [restricted range of motion in the right hip due to pain] Neuro: [no focal neuro deficits] Psych: [Alert], [oriented], [appropriate affect] - Labs CBC & Chem 7: 11/06/19 06:37 11/06/19 06:37 Labs: Abnormal Lab Results - Last 24 Hours (Table) 11/06/19 11/06/19 Range/Units 06:37 06:37 RBC 2.67 L (4.30-5.90) m/uL Hgb 8.2 L (13.0-17.5) gm/dL Hct 26.5 L (39.0-53.0) % MCHC 30.9 L (31.0-37.0) g/dL RDW 17.9 H (11.5-15.5) % Lymphocytes # 0.1 L (1.0-4.8) k/uL Sodium 135 L (137-145) mmol/L Potassium 5.5 H (3.5-5.1) mmol/L BUN 55 H (9-20) mg/dL Glucose 155 H (74-99) mg/dL ALT 68 H (4-49) U/L Total Protein 10.5 H (6.3-8.2) g/dL Albumin 3.1 L (3.5-5.0) g/dL Assessment and Plan Assessment: Intractable right hip pain secondary to metastatic disease with history of multiple myeloma Hyperkalemia Acute kidney injury Anemia Transaminitis MRI of the lumbar spine shows metastatic disease noted L2 S1 along with lytic lesions involving the right hip and pelvis. Plans: He has been started on mo rphine sulfate ER 30 mg by mouth twice a day along with lidocaine patch. His home medication of gabapentin has been continued. He has also been started on Flexeril as needed. He has been started on dexamethasone 4 mg IV every 8 hours. Discussed with patient, advised to use [place] as needed prior to starting any activities with physical therapy. We will consult PT and OT to work with the patient. Family requested transfer to [facility]. They do not have an accepting physician. At this time, I do not see a reason to transfer for higher level of care unless indicated by oncology. Potassium 5.5. Plans: 5 units of insulin IV with D50. Repeat potassium of 5 PM. Hold NSAIDs. Nephrology on board. His BUN is 55. Likely related to multiple myeloma along with dehydration. Pl ans: Start normal saline at 75 mL per hour. Repeat BMP tomorrow morning. Nephrology on board. Hemoglobin 8.2. Normocytic. Likely related to multiple myeloma. Appears at baseline. Plans: Repeat CBC tomorrow morning. Transfuse if hemoglobin less than 7. ALT 68. Lipid panel is negative. Hepatitis panel was negative. [Continue pain medication by also using [place] has breakthrough. Pain appears to be improving slowly. Follow PT and OT recommendations. Likely DC when patient achieves better pain control.]
[2019-11-06] MEDS ORDERED: SODIUM POLYSTYRENE SULFONATE 15 GM/60 ML BOTTLE PO STA (18:31)
[2019-11-06 21:39] LABS: Glucose,Whole Blood 199 mg/dL (75-99)
[2019-11-06] MEDS: FLUTICASONE 50MCG/SPRAY NASAL 16GM EA NOSTRIL SCH (22:13)
[2019-11-07] MEDS: DEXAMETHASONE SOD PHOSPHATE 4 MG/ML 1 ML VIAL IV SCH ×3 (00:12→16:44)
[2019-11-07] MEDS: MORPHINE SULFATE ER 30 MG TABLET PO SCH ×3 (00:12→16:44)
[2019-11-07] MEDS ORDERED: ONDANSETRON 4 MG/2 ML VIAL IVP PRN (00:32)
[2019-11-07] MEDS: SODIUM CHLORIDE 0.9% 1,000 ML IV SCH (00:47)
[2019-11-07 02:41] LABS: Glucose,Whole Blood 211 mg/dL (75-99)
[2019-11-07 06:53] LABS: Anisocytosis Slight; Basophils # (A) 0.1 k/uL (0-0.2); Basophils % (A) 1 %; Eosinophils % (A) 0 %; HCT 25.7 % (39.0-53.0); HGB 7.8 gm/dL (13.0-17.5); Hypochromasia Moderate; Lymphocytes # (A) 0.1 k/uL (1.0-4.8); Lymphocytes % (A) 1 %; MCH 30.4 pg (25.0-35.0); MCHC 30.3 g/dL (31.0-37.0); MCV 100.5 fL (80.0-100.0); Macrocytosis Slight; Mean Platelet Volume 8.9; Monocytes # (A) 0.3 k/uL (0-1.0); Monocytes % (A) 5 %; Neutrophils % (A) 90 %; Platelet Count 140 k/uL (150-450); RBC 2.56 m/uL (4.30-5.90); WBC 6.7 k/uL (3.8-10.6)
[2019-11-07 07:08] LABS: Albumin 2.9 g/dL (3.5-5.0); Calcium 8.5 mg/dL (8.4-10.2); Magnesium 2.5 mg/dL (1.6-2.3); Total Bilirubin 0.6 mg/dL (0.2-1.3); Total Protein 9.9 g/dL (6.3-8.2)
[2019-11-07 07:19] LABS: Glucose,Whole Blood 207 mg/dL (75-99)
[2019-11-07 07:30] LABS: Potassium 6.5 mmol/L (3.5-5.1)
[2019-11-07] MEDS: PANTOPRAZOLE 40 MG TABLET PO SCH ×2 (08:03→16:44)
[2019-11-07] MEDS ORDERED: SODIUM CHLORIDE 0.9% 1,000 ML IV ONE ×2 (08:13→22:11)
[2019-11-07] MEDS ORDERED: SODIUM POLYSTYRENE SULFONATE 15 GM/60 ML BOTTLE PO STA (08:14)
[2019-11-07] MEDS ORDERED: DEXTROSE 50% SYRINGE 50 ML IVP STA ×4 (08:14→22:11)
[2019-11-07] MEDS ORDERED: INSULIN REGULAR 100 UNIT/ML VIAL IV ONE ×3 (08:30→22:11)
[2019-11-07] MEDS ORDERED: CALCIUM GLUCONATE 1 GM in SODIUM CHLORIDE 0.9% 100 ML IVPB ONE ×2 (08:30→19:50)
[2019-11-07 09:02] LABS: Ionized Calcium 4.8 mg/dL (4.5-5.3)
[2019-11-07 09:26] LABS: Uric Acid 7.7 mg/dL (3.5-8.5)
[2019-11-07] MEDS: GABAPENTIN 400 MG CAP PO SCH (09:32)
[2019-11-07] MEDS: amLODIPine 10 MG TAB PO SCH (09:32)
[2019-11-07] MEDS: METOPROLOL SUCCINATE (ER) 25 MG TAB.ER.24H PO SCH (09:34)
[2019-11-07] MEDS: PRAVASTATIN SODIUM 20 MG TAB PO SCH (09:34)
[2019-11-07] MEDS: CYCLOBENZAPRINE 10 MG TAB PO SCH ×3 (09:34→21:55)
[2019-11-07] MEDS: SENNOSIDES-DOCUSATE SODIUM 1 EACH TAB PO SCH ×2 (09:35→20:30)
[2019-11-07] MEDS: ENOXAPARIN 40 MG/0.4 ML SYRINGE SQ SCH (09:35)
[2019-11-07] MEDS: LIDOCAINE 5% PATCH TOPICAL SCH (09:35)
[2019-11-07] MEDS ORDERED: ASPIRIN 81 MG PO STA (10:07)
[2019-11-07] MEDS ORDERED: SODIUM BICARB 8.4% 50 ML SYR (1 MEQ/ML) IV STA ×3 (10:35→19:50)
--- NOTE | 2019-11-07 10:36 | P.PN ---
Subjective Patient is seen in follow-up for acute kidney injury. Renal function is significantly worse today with creatinine up to 3.4. Potassium level was also high at 6.5. Patient states he hasn't urinated since around midnight and subsequently Dasilva catheter was inserted this morning. So far he said about 250 mL of urine output. He denies chest pain or shortness of breath. No vomiting or diarrhea. Vital signs are stable. General: The patient appeared well nourished and normally developed. HEENT: Head exam is unremarkable. Neck is without jugular venous distension. LUNGS: Lungs are clear to auscultation and percussion. Breath sounds decreased. HEART: Rate and Rhythm are regular. ABDOMEN: Soft, mild tenderness. EXTREMITITES: No clubbing, cyanosis, or edema. Objective - Vital Signs Vital signs: Vital Signs Temp 97.7 F 11/07/19 05:02 Pulse 96 11/07/19 05:50 Resp 12 11/07/19 05:02 BP 100/66 11/07/19 05:02 Pulse Ox 96 11/07/19 05:02 Intake & Output 11/06/19 11/07/19 11/07/19 18:59 06:59 18:59 Intake Total 480 Output Total 300 300 Balance -300 180 Intake: Oral 480 Output: Urine 300 300 Other: Voiding Method Urinal Urinal Urinal # Bowel Movements 1 - Labs CBC & Chem 7: 11/07/19 06:14 11/07/19 06:14 Labs: Abnormal Lab Results - Last 24 Hours (Table) 11/06/19 11/06/19 11/06/19 Range/Units 17:09 21:31 23:07 RBC (4.30-5.90) m/uL Hgb (13.0-17.5) gm/dL Hct (39.0-53.0) % MCV (80.0-100.0) fL MCHC (31.0-37.0) g/dL RDW (11.5-15.5) % Plt Count (150-450) k/uL Lymphocytes # (1.0-4.8) k/uL Sodium (137-145) mmol/L Potassium 5.9 H 6.0 H (3.5-5.1) mmol/L Chloride (98-107) mmol/L Carbon Dioxide (22-30) mmol/L BUN (9-20) mg/dL Creatinine (0.66-1.25) mg/dL Glucose (74-99) mg/dL POC Glucose (mg/dL) 199 H (75-99) mg/dL Magnesium (1.6-2.3) mg/dL ALT (4-49) U/L Alkaline Phosphatase (38-126) U/L Total Protein (6.3-8.2) g/dL Albumin (3.5-5.0) g/dL 11/07/19 11/07/19 11/07/19 Range/Units 02:37 06:14 06:14 RBC 2.56 L (4.30-5.90) m/uL Hgb 7.8 L (13.0-17.5) gm/dL Hct 25.7 L (39.0-53.0) % MCV 100.5 H (80.0-100.0) fL MCHC 30.3 L (31.0-37.0) g/dL RDW 18.0 H (11.5-15.5) % Plt Count 140 L (150-450) k/uL Lymphocytes # 0.1 L (1.0-4.8) k/uL Sodium 133 L (137-145) mmol/L Potassium 6.5 H* (3.5-5.1) mmol/L Chloride 97 L (98-107) mmol/L Carbon Dioxide 21 L (22-30) mmol/L BUN 112 H* (9-20) mg/dL Creatinine 3.40 H (0.66-1.25) mg/dL Glucose 192 H (74-99) mg/dL POC Glucose (mg/dL) 211 H (75-99) mg/dL Magnesium 2.5 H (1.6-2.3) mg/dL ALT 71 H (4-49) U/L Alkaline Phosphatase 135 H (38-126) U/L Total Protein 9.9 H (6.3-8.2) g/dL Albumin 2.9 L (3.5-5.0) g/dL 11/07/19 Range/Units 07:18 RBC (4.30-5.90) m/uL Hgb (13.0-17.5) gm/dL Hct (39.0-53.0) % MCV (80.0-100.0) fL MCHC (31.0-37.0) g/dL RDW (11.5-15.5) % Plt Count (150-450) k/uL Lymphocytes # (1.0-4.8) k/uL Sodium (137-145) mmol/L Potassium (3.5-5.1) mmol/L Chloride (98-107) mmol/L Carbon Dioxide (22-30) mmol/L BUN (9-20) mg/dL Creatinine (0.66-1.25) mg/dL Glucose (74-99) mg/dL POC Glucose (mg/dL) 207 H (75-99) mg/dL Magnesium (1.6-2.3) mg/dL ALT (4-49) U/L Alkaline Phosphatase (38-126) U/L Total Protein (6.3-8.2) g/dL Albumin (3.5-5.0) g/dL Assessment and Plan Plan: Assessment: 1. Mild acute kidney injury mostly prerenal secondary to nonsteroidals and lisinopril. Also component of urinary retention. Renal function worse. Creatinine 3.4 today. UA benign. No hydronephrosis noted on kidney ultrasound. 2. Multiple myeloma with metastatic bone lesions maintained on IV steroids. Oncology following. 3. Hyperkalemia secondary to acute kidney injury, lisinopril and nonsteroidals. Also due to urinary retention. 4. Benign hypertension. Blood pressure in the lower side. 5. History of renal cancer status post partial right nephrectomy. 6. Metabolic acidosis secondary to acute kidney injury. Plan: Patient received 10 units of IV insulin with an amp of D50 as well as 30 g of Kayexalate this morning. He also recently a gram of calcium. I will give him 2 A of sodium bicarbonate IV push now. Discontinued Naprosyn. May use Tylenol if needed. Low potassium diet. Maintain Dasilva catheter. Repeat potassium level at 1 PM today. Hold antihypertensives for systolic blood pressure less than 120. Decrease dose of Neurontin.
[2019-11-07 10:51] LABS: INR 1.4 (<1.2); Prothrombin Time 13.6 sec (9.0-12.0)
[2019-11-07 10:59] LABS: Albumin 2.6 g/dL (3.80-4.90); Gamma Globulin 6.67 g/dL (0.70-1.50)
[2019-11-07] MEDS: POLYETHYLENE GLYCOL 3350 17 GM POWD.PACK PO SCH (11:02)
[2019-11-07] MEDS ORDERED: SODIUM CHLORIDE 0.9% 1,000 ML IV SCH (11:15)
[2019-11-07 11:16] LABS: Glucose,Whole Blood 212 mg/dL (75-99)
[2019-11-07] MEDS ORDERED: FUROSEMIDE 10 MG/ML 4 ML VIAL IV STA (14:28)
--- NOTE | 2019-11-07 15:37 | P.PN ---
Subjective Progress Note Date: 11/07/19 Principal diagnosis: Right hip pain Patient was seen and examined. No acute events overnight. Patient reports improvement in his right lower extremity pain since admission. He does report some chest discomfort, pressure-like along with heartburn symptoms after taking Kayexalate yesterday. Potassium increasing from 5.5-5.5 yesterday, given 5 units insulin along with D50. Repeat potassium was 5.9 which was treated with 15 g Kayexalate, 10 units of IV insulin along with D50. Telemetry monitoring was ordered and naproxen along with lisinopril was discontinued. Objective - Vital Signs Vital signs: Vital Signs Temp 97.6 F 11/07/19 11:46 Pulse 94 11/07/19 11:46 Resp 18 11/07/19 11:46 BP 93/54 11/07/19 11:46 Pulse Ox 94 L 11/07/19 11:46 Intake & Output 11/06/19 11/07/19 11/07/19 18:59 06:59 18:59 Intake Total 480 1250 Output Total 300 300 Balance -600 256 8746 Intake: Intake, IV Titration 1250 Amount Sodium Chloride 0.9% 1, 250 000 ml @ 50 mls/hr IV . Q20H JILLIAN Rx#:[id number] Sodium Chloride 0.9% 1, 1000 000 ml @ 999 mls/hr IV . Q1H1M ONE Rx#:[id number] Oral 480 Output: Urine 300 300 Other: Voiding Method Urinal Urinal Indwelling Catheter # Bowel Movements 1 1 - Exam General: [non toxic], [no distress], [appears at stated age] Derm: [warm], [dry] Head: [atraumatic], [normocephalic], [symmetric] Eyes: [EOMI], [no lid lag], [anicteric sclera] Mouth: [no lip lesion], [mucus membranes moist] Cardiovascular: [S1S2 reg], [tachycardia], [positive DP pulse bilateral], [chest wall nontender to palpation] Lungs: [CTA bilateral], [no rhonchi, no rales] , [no accessory muscle use] Abdominal: [soft], [ nontender to palpation], [no guarding], [no appreciable organomegaly] Ext: [no gross muscle atrophy], [no edema], [no contractures], [restricted range of motion in the right hip due to pain] Neuro: [no focal neuro deficits] Psych: [Alert], [oriented], [appropriate affect] - Labs CBC & Chem 7: 11/07/19 06:14 11/07/19 12:54 Labs: Abnormal Lab Results - Last 24 Hours (Table) 11/03/19 11/06/19 11/06/19 Range/Units 17:09 17:09 21:31 RBC (4.30-5.90) m/uL Hgb (13.0-17.5) gm/dL Hct (39.0-53.0) % MCV (80.0-100.0) fL MCHC (31.0-37.0) g/dL RDW (11.5-15.5) % Plt Count (150-450) k/uL Lymphocytes # (1.0-4.8) k/uL PT (9.0-12.0) sec INR (<1.2) Sodium (137-145) mmol/L Potassium 5.9 H (3.5-5.1) mmol/L Chloride (98-107) mmol/L Carbon Dioxide (22-30) mmol/L BUN (9-20) mg/dL Creatinine (0.66-1.25) mg/dL Glucose (74-99) mg/dL POC Glucose (mg/dL) 199 H (75-99) mg/dL Magnesium (1.6-2.3) mg/dL ALT (4-49) U/L Alkaline Phosphatase (38-126) U/L Total Protein (6.3-8.2) g/dL Albumin (3.5-5.0) g/dL Albumin (PEP) 2.60 L (3.80-4.90) g/dL Hekxx-5-Kueyxkxsm 1.10 H (0.60-1.00) g/dL Gamma Globulins 6.67 H (0.70-1.50) g/dL 11/06/19 11/07/19 11/07/19 Range/Units 23:07 02:37 06:14 RBC 2.56 L (4.30-5.90) m/uL Hgb 7.8 L (13.0-17.5) gm/dL Hct 25.7 L (39.0-53.0) % MCV 100.5 H (80.0-100.0) fL MCHC 30.3 L (31.0-37.0) g/dL RDW 18.0 H (11.5-15.5) % Plt Count 140 L (150-450) k/uL Lymphocytes # 0.1 L (1.0-4.8) k/uL PT (9.0-12.0) sec INR (<1.2) Sodium (137-145) mmol/L Potassium 6.0 H (3.5-5.1) mmol/L Chloride (98-107) mmol/L Carbon Dioxide (22-30) mmol/L BUN (9-20) mg/dL Creatinine (0.66-1.25) mg/dL Glucose (74-99) mg/dL POC Glucose (mg/dL) 211 H (75-99) mg/dL Magnesium (1.6-2.3) mg/dL ALT (4-49) U/L Alkaline Phosphatase (38-126) U/L Total Protein (6.3-8.2) g/dL Albumin (3.5-5.0) g/dL Albumin (PEP) (3.80-4.90) g/dL Cfazz-9-Hsedotmge (0.60-1.00) g/dL Gamma Globulins (0.70-1.50) g/dL 11/07/19 11/07/19 11/07/19 Range/Units 06:14 07:18 10:24 RBC (4.30-5.90) m/uL Hgb (13.0-17.5) gm/dL Hct (39.0-53.0) % MCV (80.0-100.0) fL MCHC (31.0-37.0) g/dL RDW (11.5-15.5) % Plt Count (150-450) k/uL Lymphocytes # (1.0-4.8) k/uL PT 13.6 H (9.0-12.0) sec INR 1.4 H (<1.2) Sodium 133 L (137-145) mmol/L Potassium 6.5 H* (3.5-5.1) mmol/L Chloride 97 L (98-107) mmol/L Carbon Dioxide 21 L (22-30) mmol/L BUN 112 H* (9-20) mg/dL Creatinine 3.40 H (0.66-1.25) mg/dL Glucose 192 H (74-99) mg/dL POC Glucose (mg/dL) 207 H (75-99) mg/dL Magnesium 2.5 H (1.6-2.3) mg/dL ALT 71 H (4-49) U/L Alkaline Phosphatase 135 H (38-126) U/L Total Protein 9.9 H (6.3-8.2) g/dL Albumin 2.9 L (3.5-5.0) g/dL Albumin (PEP) (3.80-4.90) g/dL Hsrry-5-Hzebiqyiq (0.60-1.00) g/dL Gamma Globulins (0.70-1.50) g/dL 11/07/19 11/07/19 Range/Units 11:14 12:54 RBC (4.30-5.90) m/uL Hgb (13.0-17.5) gm/dL Hct (39.0-53.0) % MCV (80.0-100.0) fL MCHC (31.0-37.0) g/dL RDW (11.5-15.5) % Plt Count (150-450) k/uL Lymphocytes # (1.0-4.8) k/uL PT (9.0-12.0) sec INR (<1.2) Sodium (137-145) mmol/L Potassium 6.1 H* (3.5-5.1) mmol/L Chloride (98-107) mmol/L Carbon Dioxide (22-30) mmol/L BUN (9-20) mg/dL Creatinine (0.66-1.25) mg/dL Glucose (74-99) mg/dL POC Glucose (mg/dL) 212 H (75-99) mg/dL Magnesium (1.6-2.3) mg/dL ALT (4-49) U/L Alkaline Phosphatase (38-126) U/L Total Protein (6.3-8.2) g/dL Albumin (3.5-5.0) g/dL Albumin (PEP) (3.80-4.90) g/dL Etppg-0-Qlhlzgxxl (0.60-1.00) g/dL Gamma Globulins (0.70-1.50) g/dL Assessment and Plan Assessment: Hyperkalemia Acute kidney injury Chest pain Intractable right hip pain secondary to metastatic disease with history of multiple myeloma Anemia Transaminitis Potassium 6.1. Acutely worsened since yesterday. Likely related to acute kidney injury. Plans: 10 units IV insulin with D50. 30 g Kayexalate. 1 g calcium gluconate. Repeat potassium ordered for 1 PM. Hold NSAIDs and lisinopril. Nephrology on board, discussed with Dr. Salas. His BUN is 112. Creatinine is 3.4. Likely related to multiple myeloma along with dehydration, NSAID use and lisinopril. Plans: Bolus 1 L. Start normal saline at 50 mL per hour. Repeat BMP tomorrow morning. Nephrology on board. Patient describes pressure sensation in his chest since yesterday. Plans: Trend troponin/EKG to rule out ACS. One-time dose of aspirin 325 mg by mouth. Telemetry monitoring. MRI of the lumbar spine shows metastatic disease noted L2 S1 along with lytic lesions involving the right hip and pelvis. Plans: He has been started on morphine sulfate ER 30 mg by mouth twice a day along with lidocaine patch. His home medication of gabapentin has been continued. He has also been started on Flexeril as needed. He has been started on dexamethasone 4 mg IV every 8 hours. Discussed with patient, advised to use Concord as needed prior to starting any activities with physical therapy. We will consult PT and OT to work with the patient. Family requested transfer to [facility]. They do not have an accepting physician. At this time, I do not see a reason to transfer for [facility] level of care unless indicated by oncology. Hemoglobin 8.2. Normocytic. Likely related to multiple myeloma. Appears at baseline. Plans: Repeat CBC tomorrow morning. Transfuse if hemoglobin less than 7. ALT 68. Lipid panel is negative. Hepatitis panel was negative. [Patient with acute kidney injury worsened today with hyperkalemia. Nephrology on board. Continue pain medication by also using Concord has breakthrough. Pain appears to be improving slowly. Follow PT and OT recommendations.]
[2019-11-07] MEDS: GABAPENTIN 100 MG CAP PO SCH ×2 (16:44→21:55)
[2019-11-07 17:25] LABS: Glucose,Whole Blood 302 mg/dL (75-99)
--- NOTE | 2019-11-07 17:30 | P.PN ---
Subjective Progress Note Date: 11/07/19 Principal diagnosis: multiple myeloma Multiple Myeloma patient states he is noticing mild improvements, although he is still unable to move certain positions without pain. He will receive his third radiation treatment today, dosed to help symptoms through weekend. He is continuing on MS contin 30mg po, norco (without relief), and ATC flexeril. Pain services did evaluate and I have attempted to call them in regards to see if he could be a candidate for other forms of pain management (i.e. pain block or internal site treatment block) to decrease the systemic effects of the pain management but better manage pain so he can move around. He will need to be able to walk up and down three steps to go home. PT/OT is working with patient as well. I had a long (greater than 60 minute) discussion with patients and another supportive family member today. They are frustrated as this has all evolved very quickly and they do not understand this hospitalization is different then the recent one in that this is more his right side affected than left. They were very adament that the patient be transferred to [facility] today, although the transfer will not be approved as to the lack of evidence to require the higher level of care. I explained this to patients family and also to transfer prior to a holiday weekend when radiation therapy has already begun here and pain interventions have already been trialled and continuing to be trialled could potentially be more of a risk then beneficial. I recommended we develop a plan through the weekend and reviewed our goals at this moment. The goal is to get patient home but in a way the pain is tolerable he can take himself safely to and from the bathroom and sit in chair, he is not currently able to do this. There was question of possible fracture at top of sacrum within radiation oncology films, if this is the main source of this new debilitating pain this would be difficult to stabilize with pain block or brace. I did speak with ortho regarding this and unfortunately there is not a surgical intervention to help with the source of this current problem. Therefore, the goal of care is pain management and safe transfers and short ambulation. If IPR is needed post discharge that could be potentially beneficial. Patients and family understood and agree. They would like to readdress transfer if he is not showing improvements by Thursday next week and I did agree to consider at that time. Otherwise he is hemodynamically stable at this time. Objective - Vital Signs Vital signs: Vital Signs Temp 97.6 F 11/07/19 11:46 Pulse 94 11/07/19 11:46 Resp 18 11/07/19 11:46 BP 93/54 11/07/19 11:46 Pulse Ox 94 L 11/07/19 11:46 Intake & Output 11/06/19 11/07/19 11/07/19 18:59 06:59 18:59 Intake Total 480 1250 Output Total 300 300 350 Balance -300 180 900 Intake: Intake, IV Titration 1250 Amount Sodium Chloride 0.9% 1, 250 000 ml @ 50 mls/hr IV . Q20H JILLIAN Rx#:[id number] Sodium Chloride 0.9% 1, 1000 000 ml @ 999 mls/hr IV . Q1H1M ONE Rx#:[id number] Oral 480 Output: Urine 300 300 350 Other: Voiding Method Urinal Urinal Indwelling Catheter # Bowel Movements 1 2 - Exam The patient appeared well nourished and normally developed. Vital signs as documented. Head exam is unremarkable. No scleral icterus or corneal arcus noted. Neck is without jugular venous distension, thyromegaly, or carotid bruits. Carotid upstrokes are brisk bilaterally. Lungs are clear to auscultation and percussion. Cardiac exam reveals the PMI to be normally sized and situated. Rhythm is regular. First and second heart sounds normal. No murmurs, rubs or gallops. Abdominal exam reveals normal bowel sounds, no masses, no organomegaly and no aortic enlargement. Extremities are nonedematous and both femoral and pedal pulses are normal. - Labs CBC & Chem 7: 11/07/19 06:14 11/07/19 12:54 Labs: Abnormal Lab Results - Last 24 Hours (Table) 11/03/19 11/06/19 11/06/19 Range/Units 17:09 17:09 21:31 RBC (4.30-5.90) m/uL Hgb (13.0-17.5) gm/dL Hct (39.0-53.0) % MCV (80.0-100.0) fL MCHC (31.0-37.0) g/dL RDW (11.5-15.5) % Plt Count (150-450) k/uL Lymphocytes # (1.0-4.8) k/uL PT (9.0-12.0) sec INR (<1.2) Sodium (137-145) mmol/L Potassium 5.9 H (3.5-5.1) mmol/L Chloride (98-107) mmol/L Carbon Dioxide (22-30) mmol/L BUN (9-20) mg/dL Creatinine (0.66-1.25) mg/dL Glucose (74-99) mg/dL POC Glucose (mg/dL) 199 H (75-99) mg/dL Magnesium (1.6-2.3) mg/dL ALT (4-49) U/L Alkaline Phosphatase (38-126) U/L Total Protein (6.3-8.2) g/dL Albumin (3.5-5.0) g/dL Albumin (PEP) 2.60 L (3.80-4.90) g/dL Ihipf-2-Rwrmdcnua 1.10 H (0.60-1.00) g/dL Gamma Globulins 6.67 H (0.70-1.50) g/dL 11/06/19 11/07/19 11/07/19 Range/Units 23:07 02:37 06:14 RBC 2.56 L (4.30-5.90) m/uL Hgb 7.8 L (13.0-17.5) gm/dL Hct 25.7 L (39.0-53.0) % MCV 100.5 H (80.0-100.0) fL MCHC 30.3 L (31.0-37.0) g/dL RDW 18.0 H (11.5-15.5) % Plt Count 140 L (150-450) k/uL Lymphocytes # 0.1 L (1.0-4.8) k/uL PT (9.0-12.0) sec INR (<1.2) Sodium (137-145) mmol/L Potassium 6.0 H (3.5-5.1) mmol/L Chloride (98-107) mmol/L Carbon Dioxide (22-30) mmol/L BUN (9-20) mg/dL Creatinine (0.66-1.25) mg/dL Glucose (74-99) mg/dL POC Glucose (mg/dL) 211 H (75-99) mg/dL Magnesium (1.6-2.3) mg/dL ALT (4-49) U/L Alkaline Phosphatase (38-126) U/L Total Protein (6.3-8.2) g/dL Albumin (3.5-5.0) g/dL Albumin (PEP) (3.80-4.90) g/dL Dienk-8-Oomvjbfjf (0.60-1.00) g/dL Gamma Globulins (0.70-1.50) g/dL 11/07/19 11/07/19 11/07/19 Range/Units 06:14 07:18 10:24 RBC (4.30-5.90) m/uL Hgb (13.0-17.5) gm/dL Hct (39.0-53.0) % MCV (80.0-100.0) fL MCHC (31.0-37.0) g/dL RDW (11.5-15.5) % Plt Count (150-450) k/uL Lymphocytes # (1.0-4.8) k/uL PT 13.6 H (9.0-12.0) sec INR 1.4 H (<1.2) Sodium 133 L (137-145) mmol/L Potassium 6.5 H* (3.5-5.1) mmol/L Chloride 97 L (98-107) mmol/L Carbon Dioxide 21 L (22-30) mmol/L BUN 112 H* (9-20) mg/dL Creatinine 3.40 H (0.66-1.25) mg/dL Glucose 192 H (74-99) mg/dL POC Glucose (mg/dL) 207 H (75-99) mg/dL Magnesium 2.5 H (1.6-2.3) mg/dL ALT 71 H (4-49) U/L Alkaline Phosphatase 135 H (38-126) U/L Total Protein 9.9 H (6.3-8.2) g/dL Albumin 2.9 L (3.5-5.0) g/dL Albumin (PEP) (3.80-4.90) g/dL Aomyd-2-Ocldjikuo (0.60-1.00) g/dL Gamma Globulins (0.70-1.50) g/dL 11/07/19 11/07/19 11/07/19 Range/Units 11:14 12:54 17:19 RBC (4.30-5.90) m/uL Hgb (13.0-17.5) gm/dL Hct (39.0-53.0) % MCV (80.0-100.0) fL MCHC (31.0-37.0) g/dL RDW (11.5-15.5) % Plt Count (150-450) k/uL Lymphocytes # (1.0-4.8) k/uL PT (9.0-12.0) sec INR (<1.2) Sodium (137-145) mmol/L Potassium 6.1 H* (3.5-5.1) mmol/L Chloride (98-107) mmol/L Carbon Dioxide (22-30) mmol/L BUN (9-20) mg/dL Creatinine (0.66-1.25) mg/dL Glucose (74-99) mg/dL POC Glucose (mg/dL) 212 H 302 H (75-99) mg/dL Magnesium (1.6-2.3) mg/dL ALT (4-49) U/L Alkaline Phosphatase (38-126) U/L Total Protein (6.3-8.2) g/dL Albumin (3.5-5.0) g/dL Albumin (PEP) (3.80-4.90) g/dL Vyoau-7-Chgvtrsfl (0.60-1.00) g/dL Gamma Globulins (0.70-1.50) g/dL Assessment and Plan Plan: Assessment and Recommendations: Multiple Myeloma - Recent Diagnosis. - [place] light chain at diagnosis 471, paraprotein at diagnosis 7.74 g/dl. Pt has a history of MGUS many years ago. - Presacral mass biopsy positive for plasma cell completed on 10/19/19 - Positive metastatic disease bone - Status Post Rad Onc presacral mass, initiated on 10/18 - with good response - Now with pain on Right lower back (See Below for new intervention) Status Post Aredia, renal dose adjusted given on 10/22/19 - Plan to start induction with RVD and Zometa (or Xgeva) after discharge. proposed myeloma regimen is a standard NCCN recommended regimen. - in my opinion with progressive renal failure possibly myeloma contributing, we need to start treatment very soon hopefully this week as inpatient. - Had a discussion with the patient and explained to them in detail. New Right Sided Back pain - Review of Right hip, Pelvis and lumbar MRI - Radiaiton oncology asked to evaluate again - Pain Management with bowel regimen - Dexamethasone with PPI - Flexeril ATC Acute renal failure progressively getting worse, GARY (acute kidney injury) multifactorial: Acute kidney injury with creatinine up to 3.4, nephrology on consult, - underlying multiple myeloma with likely kidney injury due to renal azotemia secondary to NSAIDs - urinary retention contributing. - Hx of renal cancer-type unknown-partial nephrectomy. Anemia Anemia of malignancy/inflammation, all studies low with significantly elevated ferritin. No iron. Hgb stable, no transfusion today. Use irradiated blood products if needed Current hemoglobin 8.4, platelets slightly lower 143, white cells normal. Anemia hemoglobin 7.8 mild thrombocytopenia 140 History of renal cell carcinoma Treated by Dr. Verdugo at [facility]. Plan - MS Contin to 30mg po q8 hours - MSIR 15mg po q3 hours prn pain - Continue Flexeril ATC - PT/OT plan to increase strength in muscles and prevent further atrophy for ongoing high risk fracture picture. I have asked them to provide a plan to nursing and patient to perform each day over long weekend to attempt not to lose ground on strength. - Called Pain services to discuss other options such as pain block, internal pump. Awaiting for call back - Increased Narcotic induced constipation prevention medications to 2 senna-S 2x day and daily miralax. - Discussed in full with patient, family, Oscar DESAI resident care manager. - RT even with starting treatment, given the extent of disease, degree of response that would affect his symptoms markedly would probably take several cycles. - We will also discuss with him that if he were to go to the [facility] for rehab, he would likely not be able to treat him with the proposed regimen for his myeloma, due to coverage issues. Therefore from our standpoint, it would be most desirable if is functioning is able to improve when he came home and start specific myeloma treatment as soon as possible. suggest starting treatment as soon as possible as inpatient. Patient's questions answered and understanding stated. Thank you for allowing us to participate in the care of your patient. Please feel free to call us with any questions. Nena Skinner MD covering for Dr. Hatch [facility] [id number], [address] [place] [address] Office: [phone],
[2019-11-07] MEDS ORDERED: ALBUTEROL NEBULIZED 2.5 MG/3 ML INHALATION STA (19:50)
[2019-11-07] MEDS ORDERED: INSULIN REGULAR 100 UNIT/ML VIAL SQ ONE (19:50)
[2019-11-07 20:05] LABS: Glucose,Whole Blood 319 mg/dL (75-99)
[2019-11-07 20:10] LABS: Amorphous Sediment,Urine Few /hpf; Appearance,Urine Cloudy (Clear); Bilirubin,Urine Negative (Negative); Blood,Urine Small (Negative); Color,Urine Yellow; Glucose,Urine (UA) Negative (Negative); Granular Casts,Urine 3 /lpf (0); Hyaline Casts,Urine 38 /lpf (0-2); Ketones,Urine Negative (Negative); Leukocyte Esterase,Urine Large (Negative); Mucus,Urine Rare /hpf; Nitrite,Urine Negative (Negative); Protein,Urine 1+ (Negative); RBC,Urine 16 /hpf (0-5); Squamous Epithelial Cell,Urine 2 /hpf (0-4); Urobilinogen,Urine <2.0 mg/dL (<2.0); WBC,Urine 57 /hpf (0-5)
[2019-11-07] MEDS: FLUTICASONE 50MCG/SPRAY NASAL 16GM EA NOSTRIL SCH (20:30)
[2019-11-07 23:41] LABS: Glucose,Whole Blood 386 mg/dL (75-99)
[2019-11-08] MEDS ORDERED: SODIUM BICARB 8.4% 50 ML SYR (1 MEQ/ML) ONE (00:47)
[2019-11-08] MEDS ORDERED: EPINEPHrine 10 ML SYRINGE (0.1 MG/ML) ONE (00:47)
[2019-11-08] MEDS ORDERED: DEXTROSE 5% IN WATER 50 ML BAG ONE (00:47)
[2019-11-08] MEDS ORDERED: AMIODARONE 50 MG/ML 3 ML VIAL IV ONE (00:47)
[2019-11-08] MEDS ORDERED: CALCIUM CHLORIDE 100 MG/ML 10 ML SYRINGE ONE (00:47)
[2019-11-08 00:59] LABS: Calcium 8.5 mg/dL (8.4-10.2); Total Bilirubin 0.4 mg/dL (0.2-1.3); Total Protein 6.6 g/dL (6.3-8.2)
[2019-11-08 01:08] LABS: Anisocytosis Slight; Hypochromasia Marked; MCH 31.4 pg (25.0-35.0); MCHC 27.7 g/dL (31.0-37.0); MCV 113.3 fL (80.0-100.0); Macrocytosis Marked; Mean Platelet Volume 11.2; Platelet Count 96 k/uL (150-450); RBC 1.52 m/uL (4.30-5.90); RDW 18.5 % (11.5-15.5); WBC 3.2 k/uL (3.8-10.6)
[2019-11-08 01:11] LABS: Potassium 8.2 mmol/L (3.5-5.1)
[2019-11-08 01:13] LABS: HCT 17.2 % (39.0-53.0); HGB 4.8 gm/dL (13.0-17.5)
--- NOTE | 2019-11-08 01:26 | P.PCN ---
Date of Procedure: 11/07/19 Preoperative Diagnosis: intubated, hypotensive imminent cardioplumonary arrest. NO IV access Procedure(s) Performed: right inguinal CVC placement Anesthesia: none Surgeon: Dheeraj Galeas Estimated Blood Loss (ml): 1 Pathology: none sent Condition: critical Disposition: other (patient coded then ) Indications for Procedure: emergency situation, patient hypotensive, acidotic and imminent cardiopulmonary arrest, patient intubated. Description of Procedure: right central venous catheter attempted due to no IV access and patient crashing. triple lumen CVC was attempted to be inserted in the right groin under sterile technique using seldinger technique. however faced trouble in advancing the wire and triple lumen catheter, and procedure aborted, blood venous blood sample obtained for lab work
--- NOTE | 2019-11-08 01:34 | P.EN ---
Patient gradually became less responsive and hypotensive. Patient was intubated to secure his airways and maintain oxygenation as he became hypoxic. ICU Dr. Fuentes was notified through perfect serve and awaiting callback to transfer to patient to the ICU. ABG was checked patient seems to be acidotic. Attempt was made to obtain IV access. Then patient had a cardiopulmonary arrest with ventricular arrhythmia initially V. tach and then later on had ventricular fibrillation patient lost pulse and was shocked in cardiopulmonary resuscitation was initiated following ACLS protocol Due to lack of IV access patient was initially given epinephrine through ET tube and then intra-os is access was obtained and the right humerus he was then given epinephrine, amiodarone bolus, calcium chloride, bicarb. Patient was coded for about 15 minutes without successful return of spontaneous circulation. During the cardiopulmonary resuscitation patient had dark emesis Patient received multiple DC shocks for his ventricular arrhythmia without successful return of spontaneous circulation Patient was pronounced after unsuccessful attempted cardiopulmonary resuscitation Please refer to the paper code sheet for exact events during the cardiopulmonary resuscitation Family was notified await their arrival 70 minutes were spent delivering critical care to this patient
[2019-11-08 01:55] VITALS: BP 94/51; PULSE 100; RESP 20; TEMP 97.8
[2019-11-08 05:04] LABS: Band Neutrophils % 18 %; Metamyelocytes # (M) 0.06 k/uL (0); Metamyelocytes % 2 %; Monocytes # (M) 0.06 k/uL (0-1.0); Neutrophils % (M) 53 %; Nucleated Red Blood Cells 0 /100 WBC (0-0); Reactive Lymphocytes Present; Total Cells Counted 100
[2019-11-08] MEDS ORDERED: MIDODRINE 5 MG TAB PO SCH (07:30)
[2019-11-08] MEDS ORDERED: ENOXAPARIN 30 MG/0.3 ML SYRINGE SQ SCH (09:00)
--- NOTE | 2019-11-09 15:19 | CDI ---
Documentation Clarification Form Date: 11/09/19 From: Tamiko Cortez CCS Phone: If you have a question about this query, please contact Ciera Lui, Housekeeper Child Care at [phone] between 8am and 5pm. Admit Date: 10/31/19 Discharge Date: 11/08/19 Patient Name: Berhane Juarez Visit Number: [id number] ATTENTION: The Clinical Documentation Specialists (CDI) and [facility] Coding Staff appreciate your assistance in clarifying documentation. Please respond to the clarification below the line at the bottom and electronically sign. The CDI & [facility] Coding staff will review the response and follow-up if needed. Please note: Queries are made part of the Legal Health Record. If you have any questions, please contact the author of this message via ITS. Dear Dr. Galeas, 11/07 Procedure Note documents: Patient gradually became less responsive and hypotensive.Patient was intubated to secure his airways and maintain oxygenation as he became hypoxic.ICU Dr. Fuentes was notified through perfect serve and awaiting callback to transfer to patient to the ICU.ABG was checked patient seems to be acidotic.Attempt was made to obtain IV access. Then patient had a cardiopulmonary arrest with ventricular arrhythmia initially V. tach and then later on had ventricular fibrillation patient lost pulse and was shocked in cardiopulmonary resuscitation was initiated following ACLS protocol 11/06 Progress Note documents: .His renal function and also worsened and midodrine was added for hypotension.Plan was for emergent hemodialysis however the patient became hypotensive, hypoxic and subsequently had cardiac arrest.He was noted to have dark emesis as well according to the nurse. History/Risk Factors: Multiple Myeloma with bone involvement, HTN, Dehydration, Anemia, GARY Clinical Indicators: Hypotension, Cardiac Arrest Treatment: CPR, Midodrine In your professional opinion, can you please specify the etiology of the hypotension if known? Cardiogenic shock Hypovolemic shock Neurogenic shock Iatrogenic Hypotension Drug Induced Hypotension Other Condition, please specify Unable to determine unable to determine MTDD
--- NOTE | 2019-11-09 15:51 | CDI ---
Documentation Clarification Form Date: 11/09/19 From: Tamiko Cortez CCS Phone: If you have a question about this query, please contact Ciera Lui, Mft at [phone] between 8am and 5pm. Admit Date: 10/31/19 Discharge Date: 11/08/19 Patient Name: Berhane Juarez Visit Number: [id number] ATTENTION: The Clinical Documentation Specialists (CDI) and [facility] Coding Staff appreciate your assistance in clarifying documentation. Please respond to the clarification below the line at the bottom and electronically sign. The CDI & [facility] Coding staff will review the response and follow-up if needed. Please note: Queries are made part of the Legal Health Record. If you have any questions, please contact the author of this message via ITS. Dear Dr. Galeas, Procedure note 11/07 documents: Patient gradually became less responsive and hypotensive.Patient was intubated to secure his airways and maintain oxygenation as he became hypoxic History/Risk Factors: Multiple Myeloma with bone involvement, Cardiac arrest, Hypotension, V tach Clinical Indicators: Hypoxic Other Clinical Indicators: cardiopulmonary arrest Treatment: Intubation to secure airway and maintain oxygenation In your professional opinion, can you please clarify hypoxic? Acute hypoxic respiratory failure Hypoxia Acute Respiratory Distress Other, please specify Unable to determine acute hypoxic respiratory failure MTDD
[2019-11-09 15:54] LABS: Albumin 2.56 g/dL (3.80-4.90); Gamma Globulin 5.6 g/dL (0.70-1.50)
--- NOTE | 2019-11-09 16:34 | CDI ---
Documentation Clarification Form Date: 11/09/19 From: Tamiko Cortez CCS Phone: If you have a question about this query, please contact Ciera Lui, Parking Control Officer at [phone] between 8am and 5pm. Admit Date: 10/31/19 Discharge Date:11/08/19 Patient Name: Berhane Juarez Visit Number: [id number] ATTENTION: The Clinical Documentation Specialists (CDI) and [facility] Coding Staff appreciate your assistance in clarifying documentation. Please respond to the clarification below the line at the bottom and electronically sign. The CDI & [facility] Coding staff will review the response and follow-up if needed. Please note: Queries are made part of the Legal Health Record. If you have any questions, please contact the author of this message via ITS. Dear Dr. Galeas, 11/07 Procedure note documents: During the cardiopulmonary resuscitation patient had dark emesis History/Risk Factors: Multiple Myeloma w/ Bone involvement, Radiation Tx, GARY, Acidosis, Hypotension, Anemia Clinical Indicators: Drop in Hgb/Hct, Hypotension Lab findings: 11/07 Hgb 4.8, Hct 17.2 Treatment: Patient In your professional opinion, can you please clarify dark emesis? Hematemesis Vomiting GI Bleed Hemorrhage unspecified Other, please specify Unable to determine coffee ground emesis and vanesa rule out GI bleeding MTDD
--- NOTE | 2019-11-11 13:37 | CDI ---
Documentation Clarification Form Date: 11/11/2019 01:14:24 PM From: Milla Guadalupe RN, CCDS Admit Date: 10/31/2019 05:09:00 PM Patient Name: Berhane Juarez Visit Number: [id number] Discharge Date: 11/08/2019 04:28:00 AM ATTENTION: The Clinical Documentation Specialists (CDI) and [facility] Coding Staff appreciate your assistance in clarifying documentation. Please respond to the clarification below the line at the bottom and electronically sign. The CDI & [facility] Coding staff will review the response and follow-up if needed. Please note: Queries are made part of the Legal Health Record. If you have any questions, please contact the author of this message via ITS. Dr. Dheeraj Galeas Acute Renal failure was noted in this patient on 11/04 and significantly worsened. Please provide further specificity to accurately reflect the SOI/ROM. History Risk factors/other underlying illness: Multiple myeloma with diffuse mets to the bone, anemia, partial right nephrectomy with a hx of renal cell CA Clinical Indicators: 11/05 Nephrology Consult: "Mild acute kidney injury mostly prerenal secondary to nonsteroidals and lisinopril. Hyperkalemia secondary to acute kidney injury, lisinopril and nonsteroidals." 11/06 Attending Progress Note: "Patient with acute kidney injury worsened today with hyperkalemia. His BUN is 112.Creatinine is 3.4.Likely related to multiple myeloma along with dehydration, NSAID use and lisinopril. Plans: Bolus 1 L. Start normal saline at 50 mL per hour. Repeat BMP tomorrow morning. Nephrology on board 11/07 Event Note: "Nephrology paged, d/t refractory hyperkalemia and severe acidosis to consider HD." Patient presented 10/30 with a BUN/CR and GFR of: 29/.9/11/05 BUN/CR/GFR 55/1.24/61 K+ 6 11/06 BUN/CR/GFR 112/3.09/30 K+ 6.6 11/07 BUN/CR/GFR 156/5.39/10 K+ 8.2 10/21/2019 Patients baseline BUN/CR and GFR: 53/1.25/61 Treatment: Consults: Nephrology NSAIDS and Lisinopril Held 11/06 Calcium Gluconate 1 gm IVPB x 2 doses 11/06 D50 x 3 amps 11/06 Lasix 40 mg IVP x 1 dose 11/06 Humulin R insulin 10 units x 3 doses 11/06 HCO3 4 amp IVP 11/06 2L 0.9% NS IVF Bolus with 50 ml/hr 0.9% NS 11/06 0814 Kayexalate 30gm PO x 1 dose In your professional opinion, can you please clarify if the condition can be further specified? Acute Renal Failure with Acute Tubular Necrosis Acute Renal Failure with Renal Cortical Necrosis Acute Renal Failure with other specified pathological cause, please specify Acute Renal Failure with other cause, please specify Unable to determine Other, please specify (Last Revision: March 2017) I was not the caring physician for this patient. I only ran a code blue on this patient. please forward this query to the patient caring provider SARAH
--- NOTE | 2019-11-14 10:00 | CDI ---
Documentation Clarification Form Date: 11/11/2019 01:14:24 PM From: Milla Guadalupe RN, CCDS Admit Date: 10/31/2019 05:09:00 PM Patient Name: Berhane Juarez Visit Number: [id number] Discharge Date: 11/08/2019 04:28:00 AM ATTENTION: The Clinical Documentation Specialists (CDI) and [facility] Coding Staff appreciate your assistance in clarifying documentation. Please respond to the clarification below the line at the bottom and electronically sign. The CDI & [facility] Coding staff will review the response and follow-up if needed. Please note: Queries are made part of the Legal Health Record. If you have any questions, please contact the author of this message via ITS. Dr. Landa Acute Renal failure was noted in this patient on 11/04 and significantly worsened. Please provide further specificity to accurately reflect the SOI/ROM. History Risk factors/other underlying illness: Multiple myeloma with diffuse mets to the bone, anemia, partial right nephrectomy with a hx of renal cell CA Clinical Indicators: 11/05 Nephrology Consult: "Mild acute kidney injury mostly prerenal secondary to nonsteroidals and lisinopril. Hyperkalemia secondary to acute kidney injury, lisinopril and nonsteroidals." 11/06 Attending Progress Note: "Patient with acute kidney injury worsened today with hyperkalemia. His BUN is 112.Creatinine is 3.4.Likely related to multiple myeloma along with dehydration, NSAID use and lisinopril. Plans: Bolus 1 L. Start normal saline at 50 mL per hour. Repeat BMP tomorrow morning. Nephrology on board 11/07 Event Note: "Nephrology paged, d/t refractory hyperkalemia and severe acidosis to consider HD." Patient presented 10/30 with a BUN/CR and GFR of: 29/.9/11/05 BUN/CR/GFR 55/1.24/61 K+ 6 11/06 BUN/CR/GFR 112/3.09/30 K+ 6.6 11/07 BUN/CR/GFR 156/5.39/10 K+ 8.2 10/21/2019 Patients baseline BUN/CR and GFR: 53/1.25/61 Treatment: Consults: Nephrology NSAIDS and Lisinopril Held 11/06 Calcium Gluconate 1 gm IVPB x 2 doses 11/06 D50 x 3 amps 11/06 Lasix 40 mg IVP x 1 dose 11/06 Humulin R insulin 10 units x 3 doses 11/06 HCO3 4 amp IVP 11/06 2L 0.9% NS IVF Bolus with 50 ml/hr 0.9% NS 11/06 0814 Kayexalate 30gm PO x 1 dose In your professional opinion, can you please clarify if the condition can be further specified? Acute Renal Failure with Acute Tubular Necrosis Acute Renal Failure with Renal Cortical Necrosis Acute Renal Failure with other specified pathological cause, please specify Acute Renal Failure with other cause, please specify Unable to determine Other, please specify (Last Revision: March 2017) ARF from likely with acute tubular necrosis MTDD
== END 2019-11-08 04:28 | disposition expired | DRG 947 ==
LOC: EC 13:32 → 5NMEDONC 17:09
PROVIDERS: ADMIT Internal Medicine; ATTEND Internal Medicine
PROC: DP0C2ZZ Beam Radiation of Other Bone using Photons >10 MeV (ICD-10-PCS; 2019-11-03)
PROC: 0BH17EZ Insertion of Endotracheal Airway into Trachea, Via Natural or Artificial Opening (ICD-10-PCS; principal; 2019-11-08)
PROC: 5A12012 Performance of Cardiac Output, Single, Manual (ICD-10-PCS; 2019-11-08)
PROC: 06HM33Z Insertion of Infusion Device into Right Femoral Vein, Percutaneous Approach (ICD-10-PCS; 2019-11-08)
DX: G89.3 Neoplasm related pain (acute) (chronic) (principal); J96.01 Acute respiratory failure with hypoxia; N17.0 Acute kidney failure with tubular necrosis; E87.2 Acidosis; M48.58XA Collapsed vertebra, not elsewhere classified, sacral and sacrococcygeal region, initial encounter for fracture; C90.00 Multiple myeloma not having achieved remission; K92.1 Melena; Z11.59 Encounter for screening for other viral diseases; E88.09 Other disorders of plasma-protein metabolism, not elsewhere classified; I95.9 Hypotension, unspecified; M45.4 Ankylosing spondylitis of thoracic region; I46.2 Cardiac arrest due to underlying cardiac condition; D63.0 Anemia in neoplastic disease; E78.5 Hyperlipidemia, unspecified; E86.0 Dehydration; E87.5 Hyperkalemia; I10 Essential (primary) hypertension; M48.061 Spinal stenosis, lumbar region without neurogenic claudication; K59.03 Drug induced constipation; T40.2X5A Adverse effect of other opioids, initial encounter; M15.9 Polyosteoarthritis, unspecified; M51.16 Intervertebral disc disorders with radiculopathy, lumbar region; M62.838 Other muscle spasm; M51.34 Other intervertebral disc degeneration, thoracic region; T39.395A Adverse effect of other nonsteroidal anti-inflammatory drugs [NSAID], initial encounter; R74.0 Nonspecific elevation of levels of transaminase and lactic acid dehydrogenase [LDH]; R33.9 Retention of urine, unspecified; R12 Heartburn; R26.2 Difficulty in walking, not elsewhere classified; Z71.3 Dietary counseling and surveillance; Z79.899 Other long term (current) drug therapy; Z85.528 Personal history of other malignant neoplasm of kidney; Z90.5 Acquired absence of kidney; Z96.653 Presence of artificial knee joint, bilateral; Z90.49 Acquired absence of other specified parts of digestive tract; Z98.49 Cataract extraction status, unspecified eye; Z88.5 Allergy status to narcotic agent; Z80.42 Family history of malignant neoplasm of prostate
CPT/HCPCS: 36415; 72100; 72158; 72197; 77280; 77290; 77307; 77332; 77334; 77336; 77412; 77417; 77470; 80053; 80061; 80074; 81001; 81003; 82330; 83605; 83735; 83883; 84132; 84165; 84484; 84550; 85025; 85610; 87086; 87635; 93005; 94002; 94640; 94644; 96361; 96374; 96375; 99285